=== PATIENT | male | born 1955 | race Caucasian/White ===

== ENCOUNTER 2019-11-20 19:18 | Emergency (ER) | payer SELFPAY ==
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
[2019-11-20 19:32] VITALS: BP 126/97; PULSE 96; RESP 16; RESP 17; TEMP 36.8; O2SAT 96; BMI 23.6
[2019-11-20] MEDS: ondansetron 2 mg/ML SDV 2 mL 4 MG IVP (19:32)
[2019-11-20] MEDS: morphine 4 mg/mL SDV 1 mL IM (19:32)
[2019-11-20 20:38] LABS: Basophils % 0.2 %; Hematocrit 39.6 % (42.0-52.0); Hemoglobin 13.2 g/dL (11.7-16.6); Lymphocytes # 1.6 10^3/uL (0.8-4.8); Lymphocytes % 14.2 %; Mean Corpuscular HGB Conc 33.3 g/dL (30.0-36.0); Mean Corpuscular Hemoglobin 33.9 pg (28.0-34.0); Mean Corpuscular Volume 101.8 fL (80-94); Mean Platelet Volume 10.2 fL (7.4-10.4); Monocytes # 0.6 10^3/uL (0.2-0.9); Monocytes % 5.1 %; Neutrophils # 9.2 10^3/uL (1.8-7.7); Neutrophils % 79.7 %; Nucleated Red Blood Cells % 0 %; Platelet Count 328 10^3/cmm (130-400); Red Blood Count 3.89 10^6/uL (4.1-5.3); Red Cell Distribution Width 12.9 % (12.1-15.1); White Blood Count 11.5 10^3/uL (4.0-10.0)
[2019-11-20 20:55] LABS: Alanine Aminotransferase 35 U/L (0-41); Albumin Level 3.9 g/dL (3.5-5.2); Alkaline Phosphatase 81 IU/L (40-130); Anion Gap 16.9 (5-19); Aspartate Amino Transferase 44 U/L (0-40); Blood Urea Nitrogen 27 mg/dL (8-23); Calcium 9.3 mg/dL (8.5-10.5); Carbon Dioxide 26 mmol/L (22-29); Chloride 103 mmol/L (98-107); Globulin 3.6 g/dL (1.3-4.6); Glomerular Filtration Rate 85.2 mL/min (90-130); Glucose 192 mg/dL (74-106); Lipase 55 U/L (13-60); Potassium 3.9 mmol/L (3.5-5.1); Sodium 142 mmol/L (136-145); Total Bilirubin 0.5 mg/dL (0.15-1.2); Total Protein 7.5 g/dL (6.6-8.7)
[2019-11-20] MEDS: iohexol 300 mg/mL 100 mL Btl IV (21:38)
[2019-11-20 22:26] LABS: Add Urine Microscopic? NO
[2019-11-20 22:36] LABS: Urine Color Dark Yellow (Yellow)
[2019-11-20 22:37] LABS: Bilirubin Urine Neg (NEGATIVE); Blood Urine Neg (Negative); Glucose Urine UA Norm (Normal); Ketones Urine Negative (Negative); Leukocyte Esterase Urine Negative (Negative); Nitrate Urine Negative (Negative); Protein Urine Neg (Negative); Specific Gravity, Urine 1.025 (1.005-1.030); Urine Appearance Clear (CLEAR); Urobilinogen Urine 1 mg/dL (Negative); pH Urine 6 (5-7)
[2019-11-20 22:40] VITALS: BP 164/72; PULSE 81; RESP 16; O2SAT 98
--- NOTE | 2019-11-21 12:20 | DCPLANNER ---
Addendum entered by Alejandra Booth 11/22/19 10:34: manager web application called [phone] and was told that no body by the name of the patient was at the number. manager web application rescheduled the appointment for Saturday, November 30, 2019 at 11:[address] Zimmerman. manager web application mailed patient a letter with appointment information. Original Note: manager web application had message to schedule a follow up appointment for patient with Dr. Zimmerman. manager web application called [facility], spoke with Kendra, a follow up appointment was scheduled for Saturday, November 23, 2019 at 11:[address] Zimmerman. manager web application called patient, , unable to speak with patient, and unable to leave a voicemail, due to no voicemail box set up.
--- NOTE | 2019-12-14 14:45 | DCPLANNER ---
Patient did attend appointment scheduled with [facility].
== END 2019-11-20 22:42 | disposition home or self-care (01) ==
PROVIDERS: Emergency Provider Nurse Practitioner Family
DX: S30.1XXA Contusion of abdominal wall, initial encounter (principal); S36.62XA Contusion of rectum, initial encounter; F17.210 Nicotine dependence, cigarettes, uncomplicated; X50.9XXA Other and unspecified overexertion or strenuous movements or postures, initial encounter
CPT/HCPCS: 74177; 80053; 81003; 83690; 85025; 96372; 99282; 99283; J2270; J2405; Q9967

== ENCOUNTER → 2021-05-27 09:17 | Outpatient (BNVA) | payer MEDICARE, MEDICAID, SELFPAY | PROVIDERS: Family Provider Family Medicine; PCP Family Medicine Adult Medicine; Visit Provider Family Medicine Adult Medicine | DX: J44.9 Chronic obstructive pulmonary disease, unspecified (principal); I10 Essential (primary) hypertension; F17.200 Nicotine dependence, unspecified, uncomplicated; L40.9 Psoriasis, unspecified | CPT/HCPCS: 80053; 80061; 84153; 84443; 85025 ==

== ENCOUNTER 2021-08-19 18:15 | Emergency (ER) | payer MEDICARE, MEDICAID, SELFPAY ==
[2021-08-19 18:24] VITALS: BP 159/91; PULSE 109; RESP 18; TEMP 36.7; O2SAT 93; BMI 25.1
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
[2021-08-19] MEDS: ceFAZolin 1,000 MG in sodium chloride 0.9% (plus) 50 ML 100 MG IV (20:12)
[2021-08-19] MEDS: tetanus-dipt-pertussis 0.5 mL SDV IM (20:13)
[2021-08-19] MEDS: morphine 4 mg/mL SDV 1 mL IVP (20:14)
[2021-08-19 20:17] VITALS: BP 145/90; PULSE 98; RESP 18; O2SAT 94
[2021-08-19 21:18] VITALS: BP 140/91; PULSE 96; RESP 16; O2SAT 94
--- NOTE | 2021-08-21 10:46 | DCPLANNER ---
hydro generation manager had message to schedule a follow up appointment for patient with ENT. hydro generation manager emailed patients information to Anal[facility] and [facility]. Patients information will be printed and reviewed, clinic will call patient with appointment information.
--- NOTE | 2021-08-28 11:14 | DCPLANNER ---
vice president and portfolio manager was notified by general surgery - was told that clinic was unable to speak with patient at this time, that a letter was sent to patient, asking that patient call the clinic to schedule a follow up appointment.
--- NOTE | 2021-09-02 07:35 | DCPLANNER ---
apartment assistant manager was told that clinic called patient to schedule an appointment and was unable to speak with patient at that time to schedule an appointment. apartment assistant manager was told that clinic mailed patient a letter, asking patient to call clinic to schedule an appointment.
== END 2021-08-19 21:22 | disposition home or self-care (01) ==
PROVIDERS: Emergency Provider Emergency Medicine; Family Provider Family Medicine; PCP Family Medicine Adult Medicine
DX: S01.82XA Laceration with foreign body of other part of head, initial encounter (principal); S01.322A Laceration with foreign body of left ear, initial encounter; X99.0XXA Assault by sharp glass, initial encounter; Y92.019 Unspecified place in single-family (private) house as the place of occurrence of the external cause; S51.021A Laceration with foreign body of right elbow, initial encounter; F17.200 Nicotine dependence, unspecified, uncomplicated
CPT/HCPCS: 12014; 17999; 70450; 70486; 70490; 73200; 90471; 90715; 96365; 96375; 99284; J0690; J2270

== ENCOUNTER 2021-10-11 14:28 | Emergency (ER) | payer MEDICARE, MEDICAID, SELFPAY ==
[2021-10-11 14:38] VITALS: BP 146/92; PULSE 105; RESP 16; TEMP 37.2; O2SAT 95; BMI 25.1
--- NOTE | 2021-10-11 15:28 | W.ED.GENADLT ---
HPI - General Adult General: Chief complaint: General Medical Stated complaint: PAINFUL LUMP Time Seen by Provider: 10/11/21 15:25 Source: patient Mode of arrival: ambulatory Limitations: no limitations History of Present Illness: HPI narrative: 65-year-old male states that he has had a lump to his left breast that he noticed a week ago he states that it is firm denies any pain he said no fever no drainage denies having anything like this before denies any worsening improving factors. Associated symptoms: Deny chest pain, dyspnea, headache(s), nausea, rash or vomiting Review of Systems Const: Denies: fever(s), chills, body aches or change in appetite Eyes: Denies: blurry vision or eye discomfort ENMT: Denies: throat pain or dental pain Card: Denies: chest pain Resp: Denies: dyspnea GI: Denies: abdominal pain, nausea, vomiting or diarrhea : Denies: dysuria Musc: Denies: neck pain or back pain Skin/Breast: Denies: rash Neuro: Denies: headache(s) Psych: Denies: depression Edgar/Lymph: Denies: easy bruising All/Imm: Denies: urticaria PFSH ED PFSH: Medical History (Updated 10/11/21 @ 15:30 by Corey Mead MD) COPD (chronic obstructive pulmonary disease) Hypertension Psoriasis Family History Mother Cancer stomach Denies family history of Anesthesia complication Bleeding disorder Social History Smoking and tobacco status: current every day smoker Alcohol intake: current Alcohol intake frequency: few times a week Lives independently: Yes Marital status: Single Current occupational status: retired History of recent travel: No Physical Exam Const: COMMON NORMALS: no acute distress, patient oriented x3 and healthy appearing HENMT: COMMON NORMALS: normocephalic and atraumatic HEAD & SCALP: normocephalic and atraumatic Eye: COMMON NORMALS: Equal, round and reactive pupils present and EOMs intact bilaterally PUPIL: Yes Equal, round and reactive pupils present Neck/C-Spine: COMMON NORMALS: full ROM and supple Chest: COMMONS NORMALS: normal inspection of the chest and normal palpation of entire chest wall OTHER: Does have a marble size lump to the left breast no signs of abscess Resp: COMMON NORMALS: normal respiratory effort, No retractions, No use of accessory muscles and clear to auscultation bilaterally AUSCULTATION: clear to auscultation bilaterally Cardio: COMMON NORMALS: regular rate, regular rhythm and No murmurs present (Cardio) RATE: regular rate RHYTHM: regular rhythm GI: COMMON NORMALS: Normal to inspection, nondistended, normoactive bowel sounds present, Soft to palpation, non-tender and no masses PALPATION: Yes Soft to palpation Extremity: COMMON NORMALS: normal to inspection and full ROM Neuro: COMMON NORMALS: patient oriented x3, moves all extremities and no focal motor deficits Psych: COMMON NORMALS: mental status grossly normal, Normal thought process present and cooperative THOUGHT PROCESS: Normal thought process present Skin: COMMON NORMALS: no rashes or lesions noted and no wounds GENERAL SKIN EXAM: no rashes or lesions noted Course Vital Signs: Vital signs: Vital Signs Temperature 98.9 F 10/11/21 14:38 Pulse Rate 105 H 10/11/21 14:38 Respiratory Rate 16 10/11/21 14:38 Blood Pressure 146/92 10/11/21 14:38 Pulse Oximetry 95 10/11/21 14:38 MDM - General Adult MDM Narrative: Medical decision making narrative: Patient presents with a breast lump no signs of it being an abscess it is firm nonpainful we will get him follow-up with general surgery to work-up the mass. He is to follow-up with surgeon return if worsening Discharge Plan Discharge Patient Disposition: Home Clinical Impression: Breast lump Condition: Stable Prescriptions: No Action lisinopril 5 mg tablet 5 mg PO DAILY Qty: 30 RF: 1 albuterol sulfate [ProAir HFA] 90 mcg/actuation HFA aerosol inhaler 2 puff INHALATION Q6H PRN (Reason: shortness of breath or wheezing) Qty: 18 RF: 2 betamethasone dipropionate 0.05 % cream 1 applic TOPICAL DAILY Qty: 45 RF: 0 Tylenol-Codeine #4 300-60 mg tablet 1 tab PO Q6H PRN (Reason: pain) Qty: 20 RF: 0 Discharge Orders: Discharge ED (Routine); Ordered 10/11/21 Ordered By: Corey Mead Referrals: Karlos Gallardo MD [Primary Care Provider] - Brenton Zimmerman MD [Physician] - 1-3 days Discharge Diet: Advance as tolerated Discharge Activity: Resume usual activity Patient Instructions: Breast Mass (ED) Coding Level of Care Code ED Machine Operator Slitter Technician for [place] Corrales
--- NOTE | 2021-10-11 22:48 | DCPLANNER ---
breakfast manager had message to schedule a follow up appointment for patient with general surgery. breakfast manager emailed patients information to Katie at [facility] General Surgery / ENT clinic. Patients information will be printed and reviewed. Clinic will call patient with appointment information.
--- NOTE | 2021-10-15 14:55 | DCPLANNER ---
Patient has a follow up appointment scheduled for Tuesday November 02, 2021 at 8:[address] Zimmerman. Clinic will call patient with appointment information.
--- NOTE | 2021-11-10 08:26 | DCPLANNER ---
Patient had a follow up appointment scheduled for 11.02.[address] Zimmerman at [facility] General Surgery - patient did attend appointment.
== END 2021-10-11 15:53 | disposition home or self-care (01) ==
PROVIDERS: Emergency Provider Emergency Medicine; PCP Family Medicine Adult Medicine
DX: N63.20 Unspecified lump in the left breast, unspecified quadrant (principal); J44.9 Chronic obstructive pulmonary disease, unspecified; I10 Essential (primary) hypertension; F17.210 Nicotine dependence, cigarettes, uncomplicated
CPT/HCPCS: 99283

== ENCOUNTER 2022-01-06 12:05 | Outpatient (CLI) | payer MEDICARE, MEDICAID, SELFPAY ==
--- NOTE | 2022-01-06 12:17 | MM_ITS ---
WS: [id number] BILATERAL 3D TOMOSYNTHESIS DIGITAL DIAGNOSTIC MAMMOGRAPHY WITH CAD CLINICAL INFORMATION: N63.20 - Unspecified lump in the left breast, unspecified... TECHNIQUE: Bilateral CC, MLO, and ML views. FINDINGS: Scattered fibroglandular densities bilaterally. Palpable marker LEFT breast subareolar region. Dense breast tissue in this area asymmetric compared to the RIGHT. Ultrasound is pending. Comparison RIGHT breast is unremarkable. ULTRASOUND BREAST LEFT TECHNIQUE: Ultrasound LEFT breast focused area of concern. CLINICAL INFORMATION: N63.20 - Unspecified lump in the left breast, unspecified... COMPARISON: None. FINDINGS: Ultrasound LEFT breast at the nipple in the area of concern. RIGHT breast for comparison. Dense shado wing parenchymal tissue in subareolar location LEFT breast. No focal cystic or solid lesions. No lesi ons to target for biopsy. Similar-appearing shadowing dense parenchymal tissue subareolar RIGHT breas t. Findings compatible with gynecomastia. MM/[place] [id number] IMPRESSION: BI-RADS: 2-Benign FOLLOW UP: See Report
== END 2022-01-06 12:06 | disposition home or self-care (01) ==
PROVIDERS: PCP Family Medicine Adult Medicine; Visit Provider Surgery
DX: N63.42 Unspecified lump in left breast, subareolar (principal)
CPT/HCPCS: 76642; 77062

== ENCOUNTER 2022-01-21 12:26 | Emergency (ER) | payer MEDICARE, MEDICAID, SELFPAY ==
[2022-01-21 12:31] VITALS: BP 162/103; PULSE 101; RESP 18; TEMP 36.3; O2SAT 97; BMI 25.1
[2022-01-21 12:49] LABS: Basophils % 0.3 %; Eosinophils % 0.5 %; Hematocrit 44.4 % (42.0-52.0); Lymphocytes % 15.4 %; Mean Corpuscular HGB Conc 33.8 g/dL (30.0-36.0); Mean Corpuscular Hemoglobin 34.2 pg (28.0-34.0); Mean Corpuscular Volume 101.1 fl (80-94); Mean Platelet Volume 10.3 fL (7.4-10.4); Monocytes # 0.7 10^3/uL (0.2-0.9); Monocytes % 10.9 %; Neutrophils % 72.4 %; Nucleated Red Blood Cells % 0 %; Platelet Count 144 10^3/cmm (130-400); Red Blood Count 4.39 10^6/uL (4.1-5.3); Red Cell Distribution Width 12.4 % (12.1-15.1); White Blood Count 6.4 10^3/uL (4.0-10.0)
--- NOTE | 2022-01-21 12:53 | W.ED.ABDPA2 ---
Documented by User: KEIKO Pastrana 01/21/22 15:27 HPI - Abdominal Pain General: Chief Complaint: Abdominal Pain Stated Complaint: ABD Pain Time Seen by Provider: 01/21/22 12:48 Source: patient Mode of arrival: ambulatory Limitations: no limitations History of Present Illness: Patient is a 66-year-old male who presents to ED today with a complaint of diffuse abdominal pains that began yesterday fairly suddenly. He is not complaining of any nausea, vomiting, or changes in bowel movements. He reportedly had a normal bowel movement this morning. He is not complaining of any difficulty with urination, hematuria, dysuria. He has no flank pains. States abdominal pain does not seem to radiate into his chest or back. It does not seem to be affected by eating and states he has been able to eat and drink normally. Patient has not had any fevers or chills. He denies any previous abdominal surgeries. MD elicited complaint: abdominal pain Pertinent past history: none Onset (ago): hour(s) Pain Consistency: constant Location: Diffuse Severity: severe Radiation: none Migration to: no migration Exacerbating factors: nothing Relieving factors: nothing Associated Symptoms: Denies change in bowel habits, change in stool character, chills, diarrhea, dysuria, fever(s), heartburn, hematuria, hematemesis, nausea, syncope and vomiting Review of Systems Const: Denies: fever(s), chills, body aches, fatigue or malaise Eyes: Denies: change in vision or blurry vision Card: Denies: chest pain, palpitations, irregular heart rhythm, lightheadedness, syncope or dyspnea on exertion Resp: Denies: dyspnea, productive cough or pain on inspiration GI: Reports: abdominal pain; Denies: nausea, vomiting, hematemesis, heartburn, diarrhea, change in bowel habits or change in stool character : Denies: flank pain, difficulty urinating, dysuria, hematuria, testicular pain, testicular mass or scrotal swelling Musc: Denies: neck pain, back pain or joint pain Skin/Breast: Denies: rash Neuro: Denies: headache(s) or dizziness PFS ED PFSH: Medical History COPD (chronic obstructive pulmonary disease) COPD (chronic obstructive pulmonary disease) Hypertension Psoriasis Family History Mother Cancer stomach Denies family history of Anesthesia complication Bleeding disorder Social History Alcohol intake: current Alcohol intake frequency: few times a week Lives independently: Yes Marital status: Single Number of children: 3 Number of grandchildren: 3 service: No Current occupational status: retired and disabled History of recent travel: No Physical Exam Const: COMMON NORMALS: patient oriented x3, no limitations and alert GENERAL APPEARANCE: cooperative ORIENTATION/CONSCIOUSNESS: Yes awake, Yes oriented to person, Yes oriented to place and Yes oriented to time OTHER: states he is tired because he didn't sleep much last night secondary to pain HENMT: COMMON NORMALS: normocephalic and atraumatic HEAD & SCALP: normocephalic and atraumatic FACE & SINUS: normal facial exam Chest: COMMONS NORMALS: normal inspection of the chest and normal palpation of entire chest wall Resp: COMMON NORMALS: normal respiratory effort and clear to auscultation bilaterally AUSCULTATION: clear to auscultation bilaterally Cardio: COMMON NORMALS: regular rate and regular rhythm RATE: regular rate RHYTHM: regular rhythm GI: COMMON NORMALS: Soft to palpation INSPECTION: Yes normal to inspection AUSCULTATION: Yes normoactive bowel sounds PALPATION: Yes Soft to palpation and Yes Tenderness to palpation present (GI) (diffuse tenderness w/o obvious guarding or rigidity ) : COMMON NORMALS: Yes no CVA tenderness BLADDER/KIDNEY EXAM: Yes no CVA tenderness Back/Pelvis: COMMON NORMALS: no CVA tenderness, thoracic and lumbar spine normal to inspection, no thoracic nor lumbar tenderness and thoraco-lumbar ROM normal Extremity: COMMON NORMALS: normal to inspection GENERAL: Yes normal exam except as noted Neuro: ANITA COMA SCALE: document GCS findings Anita coma scale eye opening: Spontaneous Hagerman coma scale verbal response: Orientated Anita coma scale motor response: Obey commands Anita coma scale total score: 15 COMMON NORMALS: patient oriented x3, moves all extremities, no focal motor deficits and no sensory deficits noted SENSORIUM/ORIENTATION: Yes alert, Yes oriented to person, Yes oriented to place and Yes oriented to time Skin: COMMON NORMALS: no rashes or lesions noted GENERAL SKIN EXAM: no rashes or lesions noted Course Vital Signs: Vital signs: Vital Signs Temperature 97.6 F 01/21/22 14:04 Pulse Rate 93 01/21/22 14:04 Respiratory Rate 16 01/21/22 14:25 Blood Pressure 192/102 01/21/22 14:04 Pulse Oximetry 96 01/21/22 14:04 MDM - Abdominal Pain Medical Decision Making Patient is a 66-year-old male here for abdominal pains beginning yesterday. He is not having any nausea or vomiting. He is passing flatulence. He had a normal bowel movement this morning. Patient's blood work shows a normal white count. Chemistry panel shows mildly elevated LFTs. He has had elevations to these previously. He has a normal lipase. Gallbladder US shows hepatomegaly with hepatic steatosis. CT scan shows likely mild enteritis but findings could represent an early small bowel obstruction. Again patient is not having any vomiting and is passing stool and flatulence normally. We will recommend at this time patient do a strict liquid diet over the next 48 hours and slowly advance as tolerated. Recommend he follow-up with PCP early next week for reevaluation. Strict return to ED precautions given regarding tomorrow and over the weekend. Lab Data : 01/21/22 12:44 01/21/22 12:44 Labs/Radiology: Radiology Impressions Abdomen/Pelvis CT 01/21/22 12:57 IMPRESSION: 1. Mild fluid distention and hyperemic small bowel loops in the RIGHT lower quadrant with a small amount of mesenteric fluid. At this time there is no high-grade obstruction but there is an acute inflammatory process which is likely a mild enteritis. This also may represent early small bowel obstruction. 2. Normal appendix. 3. Cirrhotic liver. Gallbladder Ultrasound 01/21/22 13:25 IMPRESSION: 1. Mildly enlarged liver with diffuse hepatic steatosis. 2. Negative gallbladder. Laboratory Results WBC 6.4 10^3/uL (4.0-10.0) 01/21/22 12:44 RBC 4.39 10^6/uL (4.1-5.3) 01/21/22 12:44 Hgb 15.0 g/dL (11.7-16.6) 01/21/22 12:44 Hct 44.4 % (42.0-52.0) 01/21/22 12:44 MCV 101.1 fl (80-94) H 01/21/22 12:44 MCH 34.2 pg (28.0-34.0) H 01/21/22 12:44 MCHC 33.8 g/dL (30.0-36.0) 01/21/22 12:44 RDW 12.4 % (12.1-15.1) 01/21/22 12:44 Plt Count 144 10^3/cmm (130-400) 01/21/22 12:44 MPV 10.3 fL (7.4-10.4) 01/21/22 12:44 Neut % (Auto) 72.4 % 01/21/22 12:44 Lymph % (Auto) 15.4 % 01/21/22 12:44 Sunflower % (Auto) 10.9 % 01/21/22 12:44 Eos % (Auto) 0.5 % 01/21/22 12:44 Baso % (Auto) 0.3 % 01/21/22 12:44 Neut # (Auto) 4.60 10^3/uL (1.8-7.7) 01/21/22 12:44 Lymph # (Auto) 1.0 10^3/uL (0.8-4.8) 01/21/22 12:44 Sunflower # (Auto) 0.7 10^3/uL (0.2-0.9) 01/21/22 12:44 Eos # (Auto) 0.0 10^3/uL (0.0-0.8) 01/21/22 12:44 Baso # (Auto) 0.0 10^3/uL (0.0-0.1) 01/21/22 12:44 Nucleated RBC % (auto) 0 % 01/21/22 12:44 Nucleated RBCs # 0.0 /100WBC 01/21/22 12:44 Sodium 135 mmol/L (136-145) L 01/21/22 12:44 Potassium 3.6 mmol/L (3.5-5.1) 01/21/22 12:44 Chloride 99 mmol/L (98-107) 01/21/22 12:44 Carbon Dioxide 26 mmol/L (22-29) 01/21/22 12:44 Anion Gap 13.6 (5-19) 01/21/22 12:44 BUN 12 mg/dL (8-23) 01/21/22 12:44 Creatinine 0.6 mg/dL (0.7-1.2) L 01/21/22 12:44 GFR Calculation 134.8 mL/min (90-130) H 01/21/22 12:44 Glucose 165 mg/dL (65-115) H 01/21/22 12:44 Calculated Osmolality 283 mOsm/kg (285-295) L 01/21/22 12:44 Calcium 8.9 mg/dL (8.5-10.5) 01/21/22 12:44 Total Bilirubin 1.9 mg/dL (0.15-1.2) H 01/21/22 12:44 AST 94 U/L (0-40) H 01/21/22 12:44 ALT 64 U/L (0-41) H 01/21/22 12:44 Alkaline Phosphatase 95 IU/L (40-130) 01/21/22 12:44 Total Protein 7.1 g/dL (6.6-8.7) 01/21/22 12:44 Albumin 3.7 g/dL (3.5-5.2) 01/21/22 12:44 Globulin 3.4 g/dL (1.3-4.6) 01/21/22 12:44 Lipase 34 U/L (13-60) 01/21/22 12:44 Urine Color Yellow (Yellow) 01/21/22 13:04 Urine Appearance Clear (CLEAR) 01/21/22 13:04 Urine pH 7 (5-7) 01/21/22 13:04 Ur Specific [place] 1.010 (1.005-1.030) 01/21/22 13:04 Urine Protein Neg (Negative) 01/21/22 13:04 Urine Glucose (UA) Norm (Normal) 01/21/22 13:04 Urine Ketones Negative (Negative) 01/21/22 13:04 Urine Blood 2+ (Negative) H 01/21/22 13:04 Urine Nitrate Negative (Negative) 01/21/22 13:04 Urine Bilirubin Neg (Negative) 01/21/22 13:04 Urine Urobilinogen 4 mg/dL (Negative) H 01/21/22 13:04 Ur Leukocyte Esterase Negative (Negative) 01/21/22 13:04 Urine RBC 5-10 /hpf (0-2) H 01/21/22 13:04 Urine WBC Rare /hpf (0-5) 01/21/22 13:04 Ur Squamous Epith Cells Rare /hpf (0-5) 01/21/22 13:04 Amorphous Sediment Not Reportable 01/21/22 13:04 Urine Bacteria Trace /hpf (NONE) 01/21/22 13:04 Urine Mucus 2+ /hpf 01/21/22 13:04 Discharge Plan Discharge Patient Disposition: Home Clinical Impression: Abdominal pain, Enteritis Condition: Stable Prescriptions: No Action lisinopril 5 mg tablet 5 mg PO DAILY Qty: 30 1RF albuterol sulfate [ProAir HFA] 90 mcg/actuation HFA aerosol inhaler 2 puff INHALATION Q6H PRN (Reason: shortness of breath or wheezing) Qty: 18 2RF albuterol sulfate 2.5 mg/0.5 mL solution for nebulization 2.5 mg inhalation Q20M 0RF Rx Instructions: for up to 3 doses albuterol sulfate 90 mcg/actuation HFA aerosol inhaler 2 puff inhalation Q4H PRN (Reason: shortness of breath or wheezing) Qty: 8.5 5RF Rx Instructions: 340 B medications lisinopril 20 mg tablet 20 mg PO DAILY Qty: 30 5RF Rx Instructions: 340 B medications Discharge Orders: Discharge ED (Routine); Ordered 01/21/22 Ordered By: Jenniffer Singh Referrals: Karlos Gallardo MD [Primary Care Provider] - Patient Instructions: Abdominal Pain (ED) Activity Restrictions/Additional Instructions: As we discussed the imaging of your abdomen today shows some inflammation in your small bowel. The radiologist could not rule out a very early small bowel obstruction. At this point you are not vomiting and are passing gas and stool normally therefore we will have you do a strict liquid diet over the next 48 hours and then slowly advance to soft foods and advance from there as tolerated. As we discussed you need to return to the emergency department immediately for worsening abdominal pain, repetitive episodes of vomiting, inability to pass gas or stool, fevers, or any other concerns you may have. Coding Level of Care Code ED Upkeep Mechanic for [place] Fwd Exam Comprehensive Documented by User: Lan Haywood DO 01/22/22 11:18 HPI - Abdominal Pain General: Chief Complaint: Abdominal Pain Stated Complaint: ABD Pain Time Seen by Provider: 01/21/22 12:48 [facility] ED PFSH: Medical History COPD (chronic obstructive pulmonary disease) COPD (chronic obstructive pulmonary disease) Hypertension Psoriasis Family History Mother Cancer stomach Denies family history of Anesthesia complication Bleeding disorder Social History Alcohol intake: current Alcohol intake frequency: few times a week Lives independently: Yes Marital status: Single Number of children: 3 Number of grandchildren: 3 service: No Current occupational status: retired and disabled History of recent travel: No Physical Exam Neuro: ANITA COMA SCALE: document GCS findings Anita coma scale total score: 15 Course Vital Signs: Vital signs: Vital Signs Temperature 97.6 F 01/21/22 14:04 Pulse Rate 93 01/21/22 14:04 Respiratory Rate 16 01/21/22 14:25 Blood Pressure 192/102 01/21/22 14:04 Pulse Oximetry 96 01/21/22 14:04 MDM - Abdominal Pain Medical Decision Making Patient is a 66-year-old male here for abdominal pains beginning yesterday. He is not having any nausea or vomiting. He is passing flatulence. He had a normal bowel movement this morning. Patient's blood work shows a normal white count. Chemistry panel shows mildly elevated LFTs. He has had elevations to these previously. He has a normal lipase. Gallbladder US shows hepatomegaly with hepatic steatosis. CT scan shows likely mild enteritis but findings could represent an early small bowel obstruction. Again patient is not having any vomiting and is passing stool and flatulence normally. We will recommend at this time patient do a strict liquid diet over the next 48 hours and slowly advance as tolerated. Recommend he follow-up with PCP early next week for reevaluation. Strict return to ED precautions given regarding tomorrow and over the weekend. Chart reviewed and patient discussed with midlevel. Agree with assessment and plan. Lab Data : 01/21/22 12:44 01/21/22 12:44 Labs/Radiology: Radiology Impressions Abdomen/Pelvis CT 01/21/22 12:57 IMPRESSION: 1. Mild fluid distention and hyperemic small bowel loops in the RIGHT lower quadrant with a small amount of mesenteric fluid. At this time there is no high-grade obstruction but there is an acute inflammatory process which is likely a mild enteritis. This also may represent early small bowel obstruction. 2. Normal appendix. 3. Cirrhotic liver. Gallbladder Ultrasound 01/21/22 13:25 IMPRESSION: 1. Mildly enlarged liver with diffuse hepatic steatosis. 2. Negative gallbladder. Laboratory Results WBC 6.4 10^3/uL (4.0-10.0) 01/21/22 12:44 RBC 4.39 10^6/uL (4.1-5.3) 01/21/22 12:44 Hgb 15.0 g/dL (11.7-16.6) 01/21/22 12:44 Hct 44.4 % (42.0-52.0) 01/21/22 12:44 MCV 101.1 fl (80-94) H 01/21/22 12:44 MCH 34.2 pg (28.0-34.0) H 01/21/22 12:44 MCHC 33.8 g/dL (30.0-36.0) 01/21/22 12:44 RDW 12.4 % (12.1-15.1) 01/21/22 12:44 Plt Count 144 10^3/cmm (130-400) 01/21/22 12:44 MPV 10.3 fL (7.4-10.4) 01/21/22 12:44 Neut % (Auto) 72.4 % 01/21/22 12:44 Lymph % (Auto) 15.4 % 01/21/22 12:44 Sunflower % (Auto) 10.9 % 01/21/22 12:44 Eos % (Auto) 0.5 % 01/21/22 12:44 Baso % (Auto) 0.3 % 01/21/22 12:44 Neut # (Auto) 4.60 10^3/uL (1.8-7.7) 01/21/22 12:44 Lymph # (Auto) 1.0 10^3/uL (0.8-4.8) 01/21/22 12:44 Sunflower # (Auto) 0.7 10^3/uL (0.2-0.9) 01/21/22 12:44 Eos # (Auto) 0.0 10^3/uL (0.0-0.8) 01/21/22 12:44 Baso # (Auto) 0.0 10^3/uL (0.0-0.1) 01/21/22 12:44 Nucleated RBC % (auto) 0 % 01/21/22 12:44 Nucleated RBCs # 0.0 /100WBC 01/21/22 12:44 Sodium 135 mmol/L (136-145) L 01/21/22 12:44 Potassium 3.6 mmol/L (3.5-5.1) 01/21/22 12:44 Chloride 99 mmol/L (98-107) 01/21/22 12:44 Carbon Dioxide 26 mmol/L (22-29) 01/21/22 12:44 Anion Gap 13.6 (5-19) 01/21/22 12:44 BUN 12 mg/dL (8-23) 01/21/22 12:44 Creatinine 0.6 mg/dL (0.7-1.2) L 01/21/22 12:44 GFR Calculation 134.8 mL/min (90-130) H 01/21/22 12:44 Glucose 165 mg/dL (65-115) H 01/21/22 12:44 Calculated Osmolality 283 mOsm/kg (285-295) L 01/21/22 12:44 Calcium 8.9 mg/dL (8.5-10.5) 01/21/22 12:44 Total Bilirubin 1.9 mg/dL (0.15-1.2) H 01/21/22 12:44 AST 94 U/L (0-40) H 01/21/22 12:44 ALT 64 U/L (0-41) H 01/21/22 12:44 Alkaline Phosphatase 95 IU/L (40-130) 01/21/22 12:44 Total Protein 7.1 g/dL (6.6-8.7) 01/21/22 12:44 Albumin 3.7 g/dL (3.5-5.2) 01/21/22 12:44 Globulin 3.4 g/dL (1.3-4.6) 01/21/22 12:44 Lipase 34 U/L (13-60) 01/21/22 12:44 Urine Color Yellow (Yellow) 01/21/22 13:04 Urine Appearance Clear (CLEAR) 01/21/22 13:04 Urine pH 7 (5-7) 01/21/22 13:04 Ur Specific [place] 1.010 (1.005-1.030) 01/21/22 13:04 Urine Protein Neg (Negative) 01/21/22 13:04 Urine Glucose (UA) Norm (Normal) 01/21/22 13:04 Urine Ketones Negative (Negative) 01/21/22 13:04 Urine Blood 2+ (Negative) H 01/21/22 13:04 Urine Nitrate Negative (Negative) 01/21/22 13:04 Urine Bilirubin Neg (Negative) 01/21/22 13:04 Urine Urobilinogen 4 mg/dL (Negative) H 01/21/22 13:04 Ur Leukocyte Esterase Negative (Negative) 01/21/22 13:04 Urine RBC 5-10 /hpf (0-2) H 01/21/22 13:04 Urine WBC Rare /hpf (0-5) 01/21/22 13:04 Ur Squamous Epith Cells Rare /hpf (0-5) 01/21/22 13:04 Amorphous Sediment Not Reportable 01/21/22 13:04 Urine Bacteria Trace /hpf (NONE) 01/21/22 13:04 Urine Mucus 2+ /hpf 01/21/22 13:04 Discharge Plan Discharge Patient Disposition: Home Clinical Impression: Abdominal pain, Enteritis Condition: Stable Prescriptions: No Action lisinopril 5 mg tablet 5 mg PO DAILY Qty: 30 1RF albuterol sulfate [ProAir HFA] 90 mcg/actuation HFA aerosol inhaler 2 puff INHALATION Q6H PRN (Reason: shortness of breath or wheezing) Qty: 18 2RF albuterol sulfate 2.5 mg/0.5 mL solution for nebulization 2.5 mg inhalation Q20M 0RF Rx Instructions: for up to 3 doses albuterol sulfate 90 mcg/actuation HFA aerosol inhaler 2 puff inhalation Q4H PRN (Reason: shortness of breath or wheezing) Qty: 8.5 5RF Rx Instructions: 340 B medications lisinopril 20 mg tablet 20 mg PO DAILY Qty: 30 5RF Rx Instructions: 340 B medications Discharge Orders: Discharge ED (Routine); Ordered 01/21/22 Ordered By: Jenniffer Singh Referrals: Karlos Gallardo MD [Primary Care Provider] - Patient Instructions: Abdominal Pain (ED) Activity Restrictions/Additional Instructions: As we discussed the imaging of your abdomen today shows some inflammation in your small bowel. The radiologist could not rule out a very early small bowel obstruction. At this point you are not vomiting and are passing gas and stool normally therefore we will have you do a strict liquid diet over the next 48 hours and then slowly advance to soft foods and advance from there as tolerated. As we discussed you need to return to the emergency department immediately for worsening abdominal pain, repetitive episodes of vomiting, inability to pass gas or stool, fevers, or any other concerns you may have. Coding Level of Care Code ED Upkeep Mechanic for [place] Fwd Exam Comprehensive
--- NOTE | 2022-01-21 12:57 | CT_ITS ---
WS: [id number] CT ABDOMEN AND PELVIS WITH CONTRAST HISTORY: diffuse abdominal pain TECHNIQUE: Imaging performed of the abdomen and pelvis with IV contrast. Single phase imaging of the abdomen. Coronal and sagittal reformats are submitted. All CT scans at [facility] use at [address] one of these dose optimization techniques: automated exposure control; mA and/or kV adjustment per patient size (includes targeted exams where dose is matched to clinical indication); or iterative re construction. IV CONTRAST: Omnipaque 300; 95 mL IV. Oral contrast: No DLP: 1353.5 mGy.cm COMPARISON: None available. Lower thorax: Benign granuloma LEFT lower lobe. Heart is normal size. No hiatal hernia. Liver/biliary system: Normal size liver. Surface of the liver is irregular and lobulated. No mass genet ntified. There is a long-term stability hypoechoic 5 mm nodule superior liver. Gallbladder: Normal. No gallstones or wall thickening. No pericholecystic fluid. Pancreas: Normal size pancreas and pancreatic duct. No adjacent inflammation. Spleen: 14.4 cm, mildly enlarged spleen with a few granulomata. Adrenal glands: Normal. Right kidney: Normal. Left kidney: Normal. Aorta: Atherosclerosis. No aneurysm. Lymphadenopathy: There are small scattered mesenteric lymph nodes. These lymph nodes are not enlarged . Free fluid: None. GI tract: Nondistended stomach. Proximal small bowel was normal caliber. There are mildly dilated hyp eremic loops of small bowel in the RIGHT lower quadrant. There is also some very mild enhancement of the vasa recta. At this time there is no obstruction. No transition point is identified. There is a s mall amount of fluid and edema in the mesentery of the RIGHT lower quadrant. The appendix is normal. Mild diffuse constipation. There are a few scattered diverticula in the sigmoid colon. Abdominal wall: Unremarkable abdominal wall. No hernia. Pelvis: Prostate gland is enlarged encroaching into the bladder. Prostate measures 4.0 x 3.1 cm and e xtends over length of 5.7 cm. No free fluid or adenopathy in the pelvis. Bones: No osteoblastic or osteolytic bone disease. Bilateral pars defects at L5. CT/CT abdomen pelvis w con* [id number] IMPRESSION: 1. Mild fluid distention and hyperemic small bowel loops in the RIGHT lower qu adrant with a small amount of mesenteric fluid. At this time there is no high-g rade obstruction but there is an acute inflammatory process which is likely a m ild enteritis. This also may represent early small bowel obstruction. 2. Normal appendix. 3. Cirrhotic liver.
[2022-01-21 13:10] LABS: Alanine Aminotransferase 64 U/L (0-41); Albumin Level 3.7 g/dL (3.5-5.2); Alkaline Phosphatase 95 IU/L (40-130); Anion Gap 13.6 (5-19); Aspartate Amino Transferase 94 U/L (0-40); Blood Urea Nitrogen 12 mg/dL (8-23); Calcium 8.9 mg/dL (8.5-10.5); Carbon Dioxide 26 mmol/L (22-29); Chloride 99 mmol/L (98-107); Creatinine Clr Calc Pharmacy 94.1244; Globulin 3.4 g/dL (1.3-4.6); Glomerular Filtration Rate 134.8 mL/min (90-130); Glucose 165 mg/dL (65-115); Lipase 34 U/L (13-60); Osmolality Calculated 283 mOsm/kg (285-295); Potassium 3.6 mmol/L (3.5-5.1); Sodium 135 mmol/L (136-145); Total Bilirubin 1.9 mg/dL (0.15-1.2); Total Protein 7.1 g/dL (6.6-8.7)
[2022-01-21 13:23] LABS: Blood Urine 2+ (Negative); Glucose Urine UA Norm (Normal); Ketones Urine Negative (Negative); Protein Urine Neg (Negative); Urine Appearance Clear (CLEAR); Urine Color Yellow (Yellow); pH Urine 7 (5-7)
[2022-01-21 13:24] LABS: Add Urine Culture? No; Add Urine Microscopic? YES; Bacteria Urine TRACE /hpf; Bilirubin Urine Neg (Negative); Leukocyte Esterase Urine Negative (Negative); Mucus Urine 2+ /hpf; Nitrate Urine Negative (Negative); Squamous Epithelial Cell Urine RARE /hpf (0-5); Urobilinogen Urine 4 mg/dL (Negative); WBC Urine RARE /hpf (0-5)
--- NOTE | 2022-01-21 13:25 | US_ITS ---
WS: [id number] RIGHT UPPER QUADRANT ULTRASOUND HISTORY: elevated LFTs, abdominal pain COMPARISON: 02/26/2013 Liver: 16.9 cm in length. Mildly enlarged liver with diffuse mild coarse echotexture. No mass or bile duct dilatation. Portal Vein: Normal hepatopetal flow with monophasic waveform. Gallbladder: Normally distended gallbladder with no stones or wall thickening. CBD: 0.6 cm Pancreas: Not well visualized. Right kidney: 9.1 cm in length. Normal size and echogenicity. No hydronephrosis or mass. Aorta and IVC: Unremarkable abdominal aorta and IVC. No ascites. US/US gall bladder [id number] IMPRESSION: 1. Mildly enlarged liver with diffuse hepatic steatosis. 2. Negative gallbladder.
[2022-01-21 14:04] VITALS: BP 192/102; PULSE 93; RESP 16; TEMP 36.4; O2SAT 96
[2022-01-21] MEDS: iohexol 300 mg/mL 100 mL Btl IV (14:16)
[2022-01-21 14:25] VITALS: RESP 16
[2022-01-21] MEDS: ondansetron 2 mg/ML SDV 2 mL 4 MG IVP (14:25)
[2022-01-21] MEDS: morphine 4 mg/mL SDV 1 mL IVP (14:25)
[2022-01-21] MEDS: ketorolac 30 mg/mL INJ IVP (15:40)
== END 2022-01-21 15:43 | disposition home or self-care (01) ==
PROVIDERS: Emergency Provider Physician Assistant; PCP Family Medicine Adult Medicine
DX: K52.9 Noninfective gastroenteritis and colitis, unspecified (principal); R79.89 Other specified abnormal findings of blood chemistry; J44.9 Chronic obstructive pulmonary disease, unspecified; I10 Essential (primary) hypertension
CPT/HCPCS: 74177; 76705; 80053; 81001; 83690; 85025; 96374; 96375; 99283; J1885; J2270; J2405; Q9967

== ENCOUNTER 2022-05-14 06:02 | Emergency (ER) | payer MEDICARE, MEDICAID, SELFPAY ==
[2022-05-14 06:03] VITALS: BP 192/108; PULSE 84; RESP 22; TEMP 36.6; O2SAT 98; BMI 25.1
--- NOTE | 2022-05-14 06:26 | ECG_ITS ---
[facility] Test Date: 2022-05-14 Pat Name: Ned Sherwood Department: Room: Gender: Male Clay Digger: : 1955 Requested By: Lan Guerrero Order Number: [id number] [place] MD: Emil Lora M.D. Measurements Intervals Hood Rate: 86 P: 75 OK: 184 QRS: 53 QRSD: 92 T: 62 QT: 395 QTc: 474 Interpretive Statements SINUS RHYTHM WITH OCCASIONAL SUPRAVENTRICULAR PREMATURE COMPLEXES POSSIBLE LEFT ATRIAL ENLARGEMENT [-0.1mV P-WAVE IN V1/V2] Compared to ECG 05/13/2017 19:08:49 No significant changes Electronically Signed On 05-14-2022 20:30:21 CDT by Emil Lora M.D. [id number]
--- NOTE | 2022-05-14 06:26 | CTR_ITS ---
PROCEDURE INFORMATION: Exam: CT Abdomen And Pelvis Without Contrast Exam date and time: 05/14/2022 6:35 AM Age: 66 years old Clinical indication: Abdominal pain; Generalized TECHNIQUE: Imaging protocol: Computed tomography of the abdomen and pelvis without contrast. Radiation optimization: All CT scans at this facility use at least one of these dose optimization techniques: automated exposure control; mA and/or kV adjustment per patient size (includes targeted exams where dose is matched to clinical indication); or iterative reconstruction. COMPARISON: CT abdomen pelvis w con* [id number] 01/21/2022 2:16 PM RADIATION DOSE METRICS: Total DLP (mGy-cm): 948.23 FINDINGS: Lungs: No consolidation. Tiny calcified granuloma noted in the left lower lobe. Heart: Normal heart size. Coronary atherosclerotic calcifications seen. No pericardial effusion. Liver: The liver demonstrates volume redistribution and nodular contour, consistent with cirrhosis. There is a nonspecific subcentimeter focus of decreased attenuation in the hepatic dome. Gallbladder and bile ducts: Normal. No calcified stones. No ductal dilation. Pancreas: Normal. No ductal dilation. Spleen: There is tiny calcific densities scattered throughout the spleen, likely sequela of previous granulomatous disease. Mildly enlarged spleen measuring 14.3 cm in CC dimension. Adrenal glands: Normal. No mass. Kidneys and ureters: Normal. No hydronephrosis. Stomach and bowel: There is diverticulosis without evidence of diverticulitis. Appendix: No evidence of appendicitis. Intraperitoneal space: Unremarkable. No free air. No significant fluid collection. Vasculature: Mild diffuse atherosclerotic disease is present. Lymph nodes: Unremarkable. No enlarged lymph nodes. Urinary bladder: Unremarkable as visualized. Reproductive: The prostate is enlarged. Bones/joints: Degenerative changes of the spine seen. Soft tissues: A small fat containing umbilical hernia is present. CT/CT abdomen pelvis wo con [id number] IMPRESSION: 1. No acute intra-abdominal or intrapelvic pathology. 2. Cirrhotic liver with stigmata of portal hypertension, manifested by splenomegaly
--- NOTE | 2022-05-14 06:28 | ED_ITS ---
HPI - Abdominal Pain General: Chief Complaint: Abdominal Pain Stated Complaint: abd pain Time Seen by Provider: 05/14/22 06:14 Source: patient Mode of arrival: ambulatory Limitations: no limitations History of Present Illness: 66-year-old male presents emergency complaining of generalized abdominal pain mostly epigastric right upper quadrant but does not really focus it beyond that. He denies hematochezia melena hematemesis coffee- ground emesis. He states he gets his intermittently is a little worse today than it has been in the past. Later in the visit patient admits to drinking at least a pint of hard liquor per day. MD elicited complaint: abdominal pain Pertinent past history: none Onset (ago): hour(s) Pain Consistency: constant Location: Epigastric and RUQ Severity: moderate Quality: cramping Radiation: none Migration to: no migration Exacerbating factors: nothing Relieving factors: nothing Associated Symptoms: Reports GI cramping, dyspepsia, nausea and poor appetite; Denies anorexia, belching, bloating, change in bowel habits, change in stool ch aracter, chills, coffee ground emesis, constipation, diarrhea, dysuria, excessive flatus, fever(s), heartburn, hematochezia, hematuria, hematemesis, fecal incontinence, loose stools, melena, syncope and vomiting Review of Systems Const: Denies: fever(s), chills, fatigue or malaise ENMT: Denies: throat pain, ear or mastoid pain, nasal discharge or nasal congestion Card: Denies: chest pain, palpitations, irregular heart rhythm or syncope Resp: Denies: dyspnea, productive cough or non-productive cough GI: Reports: abdominal pain, nausea and GI cramping; Denies: vomiting, hematemesis, coffee ground emesis, heartburn, diarrhea, constipation, bloating, belching, excessive flatus, fecal incontinence, change in bowel habits, change in stool character, hematochezia or melena : Denies: flank pain, difficulty urinating, dysuria, urinary frequency, urinary urgency or hematuria Skin/Breast: Denies: rash or pruritus PFS ED PFSH: Medical History COPD (chronic obstructive pulmonary disease) COPD (chronic obstructive pulmonary disease) Hypertension Psoriasis Family History Mother Cancer stomach Denies family history of Anesthesia complication Bleeding disorder Social History Alcohol intake: current Alcohol intake frequency: few times a week Lives independently: Yes Marital status: Single Number of children: 3 Number of grandchildren: 3 service: No Current occupational status: retired and disabled History of recent travel: No Physical Exam Const: COMMON NORMALS: no acute distress GENERAL APPEARANCE: cooperative and comfortable ORIENTATION/CONSCIOUSNESS: Yes awake, Yes oriented to person, Yes oriented to place and Yes oriented to time HENMT: COMMON NORMALS: normocephalic and atraumatic HEAD & SCALP: normocephalic and atraumatic Neck/C-Spine: COMMON NORMALS: no JVD Resp: COMMON NORMALS: normal respiratory effort, No retractions, No use of accessory muscles and clear to auscultation bilaterally AUSCULTATION: clear to auscultation bilaterally Cardio: COMMON NORMALS: no JVD, regular rate, regular rhythm and No murmurs present (Cardio) RATE: regular rate RHYTHM: regular rhythm GI: COMMON NORMALS: No hepatosplenomegaly present AUSCULTATION: Yes normoactive bowel sounds PALPATION: Yes Tenderness to palpation present (GI) (diffuse), No Guarding due to palpation present (GI) and Yes No hepatosplenomegaly present Extremity: COMMON NORMALS: normal to inspection, capillary refill normal, no clubbing, cyanosis or edema, no calf tenderness and no pedal edema Neuro: SENSORIUM/ORIENTATION: Yes oriented to person, Yes oriented to place and Yes oriented to time Skin: COMMON NORMALS: no rashes or lesions noted GENERAL SKIN EXAM: no rashes or lesions noted Course Vital Signs: Vital signs: Vital Signs Temperature 97.9 F 05/14/22 06:03 Pulse Rate 93 05/14/22 08:53 Respiratory Rate 18 05/14/22 08:53 Blood Pressure 136/81 05/14/22 08:53 Pulse Oximetry 97 05/14/22 08:53 MDM - Abdominal Pain Medical Decision Making Liver enzymes and bilirubin elevated CT and ultrasound show signs of cirrhosis but there is no signs of any active gallbladder disease. His pancreatic enzymes are normal. They most of his symptoms are from alcoholic gastritis rest of his labs are unremarkable for any acute pathology do reflect his chronic drinking with a mildly elevated MCV elevated liver enzymes and mild hyponatremia. Additionally was hypertensive. Not taking his blood pressure medication. He is given several medications here to alleviate his blood pressure and we will discharge him home with amlodipine 5 mg daily in addition to his lisinopril. In addition to that we will start him on Protonix 40 twice a day and he should follow-up with his primary care doctor to reevaluate blood pressure and the need for continued Protonix at the end of 2 weeks. Patient encouraged to seek outpatient assistance for abstinence from alcohol. Medical Records I reviewed the patient's medical records. Lab Data I reviewed the patient's lab results. : 05/14/22 06:50 05/14/22 06:50 Labs/Radiology: Radiology Impressions Abdomen/Pelvis CT 05/14/22 06:26 IMPRESSION: 1. No acute intra-abdominal or intrapelvic pathology. 2. Cirrhotic liver with stigmata of portal hypertension, manifested by splenomegaly Gallbladder Ultrasound 05/14/22 07:39 IMPRESSION: 1. No cholelithiasis or gallbladder wall thickening. Normal size gallbladder. 2. Cirrhotic liver. 3. No bile duct dilatation. Laboratory Results WBC 6.6 10^3/uL (4.0-10.0) 05/14/22 06:50 RBC 4.81 10^6/uL (4.1-5.3) 05/14/22 06:50 Hgb 16.3 g/dL (11.7-16.6) 05/14/22 06:50 Hct 47.3 % (42.0-52.0) 05/14/22 06:50 MCV 98.3 fl (80-94) H 05/14/22 06:50 MCH 33.9 pg (28.0-34.0) 05/14/22 06:50 MCHC 34.5 g/dL (30.0-36.0) 05/14/22 06:50 RDW 12.9 % (12.1-15.1) 05/14/22 06:50 Plt Count 154 10^3/cmm (130-400) 05/14/22 06:50 MPV 10.2 fL (7.4-10.4) 05/14/22 06:50 Neut % (Auto) 66.8 % 05/14/22 06:50 Lymph % (Auto) 21.6 % 05/14/22 06:50 [place] % (Auto) 10.2 % 05/14/22 06:50 Eos % (Auto) 0.9 % 05/14/22 06:50 Baso % (Auto) 0.3 % 05/14/22 06:50 Neut # (Auto) 4.40 10^3/uL (1.8-7.7) 05/14/22 06:50 Lymph # (Auto) 1.4 10^3/uL (0.8-4.8) 05/14/22 06:50 [place] # (Auto) 0.7 10^3/uL (0.2-0.9) 05/14/22 06:50 Eos # (Auto) 0.1 10^3/uL (0.0-0.8) 05/14/22 06:50 Baso # (Auto) 0.0 10^3/uL (0.0-0.1) 05/14/22 06:50 Nucleated RBC % (auto) 0 % 05/14/22 06:50 Nucleated RBCs # 0.0 /100WBC 05/14/22 06:50 Sodium 135 mmol/L (136-145) L 05/14/22 06:50 Potassium 3.9 mmol/L (3.5-5.1) 05/14/22 06:50 Chloride 97 mmol/L (98-107) L 05/14/22 06:50 Carbon Dioxide 29 mmol/L (22-29) 05/14/22 06:50 Anion Gap 12.9 (5-19) 05/14/22 06:50 BUN 16 mg/dL (8-23) 05/14/22 06:50 Creatinine 0.6 mg/dL (0.7-1.2) L 05/14/22 06:50 GFR Calculation 134.8 mL/min (90-130) H 05/14/22 06:50 Glucose 140 mg/dL (65-115) H 05/14/22 06:50 Calculated Osmolality 283 mOsm/kg (285-295) L 05/14/22 06:50 Calcium 9.2 mg/dL (8.5-10.5) 05/14/22 06:50 Total Bilirubin 1.3 mg/dL (0.15-1.2) H 05/14/22 06:50 AST 113 U/L (0-40) H 05/14/22 06:50 ALT 63 U/L (0-41) H 05/14/22 06:50 Alkaline Phosphatase 106 IU/L (40-130) 05/14/22 06:50 Total Protein 7.6 g/dL (6.6-8.7) 05/14/22 06:50 Albumin 3.8 g/dL (3.5-5.2) 05/14/22 06:50 Globulin 3.8 g/dL (1.3-4.6) 05/14/22 06:50 Lipase 42 U/L (13-60) 05/14/22 06:50 Urine Color Yellow (Yellow) 05/14/22 07:55 Urine Appearance Clear (CLEAR) 05/14/22 07:55 Urine pH 7 (5-7) 05/14/22 07:55 Ur Specific [place] 1.015 (1.005-1.030) 05/14/22 07:55 Urine Protein Neg (Negative) 05/14/22 07:55 Urine Glucose (UA) Norm (Normal) 05/14/22 07:55 Urine Ketones Negative (Negative) 05/14/22 07:55 Urine Blood Neg (Negative) 05/14/22 07:55 Urine Nitrate Negative (Negative) 05/14/22 07:55 Urine Bilirubin Neg (Negative) 05/14/22 07:55 Urine Urobilinogen 8 mg/dL (Negative) H 05/14/22 07:55 Ur Leukocyte Esterase Negative (Negative) 05/14/22 07:55 Discharge Plan Discharge Patient Disposition: Home Clinical Impression: Alcoholic gastritis, Alcoholic cirrhosis Condition: Stable Prescriptions: New Protonix 40 mg tablet,delayed release (DR/EC) 40 mg PO BID 14 Days Qty: 28 0RF amlodipine 5 mg tablet 5 mg PO DAILY Qty: 30 0RF No Action albuterol sulfate 90 mcg/actuation HFA aerosol inhaler 2 puff inhalation Q4H PRN (Reason: shortness of breath or wheezing) Qty: 8.5 5RF Rx Instructions: 340 B medications lisinopril 20 mg tablet 20 mg PO QAM 0RF Rx Instructions: 340 B medications Discharge Orders: Discharge ED (Routine); Ordered 05/14/22 Ordered By: Lan Haywood Referrals: Karlos Gallardo MD [Primary Care Provider] - Patient Instructions: Cirrhosis (ED), Abuse of Alcohol (ED), Opioid Safety Activity Restrictions/Additional Instructions: Abstain from alcohol. Follow-up with your primary care provider to reevaluate need to continue the Protonix after 2 weeks and to reevaluate your blood pressure. Your blood pressure was extremely high today in the emergency room add amlodipine 5 mg daily in addition to the lisinopril that you take regularly. Coding Level of Care Code ED Wick And Base Assembler for Johng Fwd Exam Comprehensive
[2022-05-14] MEDS: ketorolac 30 mg/mL INJ IVP (06:57)
[2022-05-14] MEDS: ondansetron 2 mg/ML SDV 2 mL 4 MG IVP (06:57)
[2022-05-14] MEDS: sodium chloride 0.9% 1,000 ML 999 ML IV (06:58)
[2022-05-14] MEDS: lidocaine 2% viscous 15 ML, aluminum-mag hydrox-simethicon 30 ML, sucralfate oral liq 1 GM PO (06:58)
--- NOTE | 2022-05-14 07:00 | PC.NURSE ---
Report from ARSLAN Harris. Patient awake c/o of pain. material handler 2nd shift nurse giving meds now.
[2022-05-14 07:09] LABS: Basophils % 0.3 %; Eosinophils # 0.1 10^3/uL (0.0-0.8); Eosinophils % 0.9 %; Hematocrit 47.3 % (42.0-52.0); Hemoglobin 16.3 g/dL (11.7-16.6); Lymphocytes # 1.4 10^3/uL (0.8-4.8); Lymphocytes % 21.6 %; Mean Corpuscular HGB Conc 34.5 g/dL (30.0-36.0); Mean Corpuscular Hemoglobin 33.9 pg (28.0-34.0); Mean Corpuscular Volume 98.3 fl (80-94); Mean Platelet Volume 10.2 fL (7.4-10.4); Monocytes # 0.7 10^3/uL (0.2-0.9); Monocytes % 10.2 %; Neutrophils % 66.8 %; Nucleated Red Blood Cells % 0 %; Platelet Count 154 10^3/cmm (130-400); Red Blood Count 4.81 10^6/uL (4.1-5.3); Red Cell Distribution Width 12.9 % (12.1-15.1); White Blood Count 6.6 10^3/uL (4.0-10.0)
[2022-05-14 07:30] LABS: Alanine Aminotransferase 63 U/L (0-41); Albumin Level 3.8 g/dL (3.5-5.2); Alkaline Phosphatase 106 IU/L (40-130); Anion Gap 12.9 (5-19); Aspartate Amino Transferase 113 U/L (0-40); Blood Urea Nitrogen 16 mg/dL (8-23); Calcium 9.2 mg/dL (8.5-10.5); Carbon Dioxide 29 mmol/L (22-29); Chloride 97 mmol/L (98-107); Globulin 3.8 g/dL (1.3-4.6); Glomerular Filtration Rate 134.8 mL/min (90-130); Glucose 140 mg/dL (65-115); Lipase 42 U/L (13-60); Osmolality Calculated 283 mOsm/kg (285-295); Potassium 3.9 mmol/L (3.5-5.1); Sodium 135 mmol/L (136-145); Total Bilirubin 1.3 mg/dL (0.15-1.2); Total Protein 7.6 g/dL (6.6-8.7)
[2022-05-14 07:31] VITALS: BP 195/115; PULSE 90; RESP 18; O2SAT 95
[2022-05-14 07:37] LABS: Creatinine Clr Calc Pharmacy 94.1244
--- NOTE | 2022-05-14 07:39 | US_ITS ---
WS: [id number] RIGHT UPPER QUADRANT ULTRASOUND HISTORY: elevate LFTs, t bili COMPARISON: 01/21/2022 Liver: 13.7 cm in length. Normal size liver with moderately coarse echotexture throughout. Surface of the liver is nodular. No mass or bile duct dilatation. Portal Vein: Normal hepatopetal flow with monophasic waveform. Gallbladder: Normally distended gallbladder. No stones or wall thickening. No pericholecystic fluid. CBD: 0.5 cm Pancreas: Normal size and echogenicity. Right kidney: 9.6 cm in length. Normal size and echogenicity. No hydronephrosis or mass. Aorta and IVC: Unremarkable abdominal aorta and IVC. No ascites. US/US gall bladder 52710 IMPRESSION: 1. No cholelithiasis or gallbladder wall thickening. Normal size gallbladder. 2. Cirrhotic liver. 3. No bile duct dilatation.
[2022-05-14 07:51] VITALS: RESP 18; O2SAT 98
[2022-05-14] MEDS: morphine 4 mg/mL SDV 1 mL IVP (07:51)
[2022-05-14 08:15] VITALS: BP 188/114; PULSE 92; RESP 18; O2SAT 97
[2022-05-14] MEDS: hyDRALAzine 20 mg/mL INJ 1 mL IVP (08:16)
[2022-05-14] MEDS: metoprolol tartrate 1 mg/1 mL SDV 5 mL 5 MG IVP (08:19)
[2022-05-14 08:35] LABS: Add Urine Microscopic? NO; Charge for UA Resulting for Rev
[2022-05-14 08:39] LABS: Bilirubin Urine Neg (Negative); Blood Urine Neg (Negative); Glucose Urine UA Norm (Normal); Ketones Urine Negative (Negative); Leukocyte Esterase Urine Negative (Negative); Nitrate Urine Negative (Negative); Protein Urine Neg (Negative); Specific Gravity, Urine 1.015 (1.005-1.030); Urine Appearance Clear (CLEAR); Urine Color Yellow (Yellow); Urobilinogen Urine 8 mg/dL (Negative); pH Urine 7 (5-7)
[2022-05-14 08:53] VITALS: BP 136/81; PULSE 93; RESP 18; O2SAT 97
== END 2022-05-14 09:07 | disposition home or self-care (01) ==
PROVIDERS: Emergency Provider Family Medicine; PCP Family Medicine Adult Medicine
DX: K29.20 Alcoholic gastritis without bleeding (principal); K70.30 Alcoholic cirrhosis of liver without ascites; J44.9 Chronic obstructive pulmonary disease, unspecified; I10 Essential (primary) hypertension
CPT/HCPCS: 74176; 76705; 80053; 81003; 83690; 85025; 93005; 96361; 96374; 96375; 99285; J0360; J1885; J2270; J2405; J3490; J7030

== ENCOUNTER 2022-09-25 18:22 | Emergency (ER) | payer MEDICARE, MEDICAID, SELFPAY ==
[2022-09-25 18:38] VITALS: BP 175/100; PULSE 94; RESP 20; TEMP 36.2; O2SAT 95
[2022-09-25] MEDS: lidocaine 2% viscous 15 ML, aluminum-mag hydrox-simethicon 30 ML, sucralfate oral liq 1 GM PO (19:11)
[2022-09-25] MEDS: sodium chloride 0.9% 1,000 ML 999 ML IV (19:12)
[2022-09-25 19:24] LABS: Basophils % 0.3 %; Eosinophils # 0.1 10^3/uL (0.0-0.8); Eosinophils % 0.9 %; Hematocrit 51.8 % (42.0-52.0); Lymphocytes # 1.2 10^3/uL (0.8-4.8); Lymphocytes % 11.3 %; Mean Corpuscular HGB Conc 32.8 g/dL (30.0-36.0); Mean Corpuscular Hemoglobin 32.8 pg (28.0-34.0); Mean Corpuscular Volume 99.8 fl (80-94); Mean Platelet Volume 10.8 fL (7.4-10.4); Monocytes # 0.5 10^3/uL (0.2-0.9); Monocytes % 5.3 %; Neutrophils # 8.35 10^3/uL (1.8-7.7); Neutrophils % 81.8 %; Nucleated Red Blood Cells % 0 %; Platelet Count 171 10^3/cmm (130-400); Red Blood Count 5.19 10^6/uL (4.1-5.3); Red Cell Distribution Width 12.9 % (12.1-15.1); White Blood Count 10.2 10^3/uL (4.0-10.0)
[2022-09-25 19:38] LABS: INR 1.04 (0.8-1.2)
[2022-09-25 19:44] LABS: Lactate (Lactic Acid level) 1.5 mmol/L (0.5-2.2)
[2022-09-25 19:46] LABS: Alanine Aminotransferase 44 U/L (0-41); Albumin Level 3.8 g/dL (3.5-5.2); Alkaline Phosphatase 138 U/L (40-130); Anion Gap 12.5 (5-19); Aspartate Amino Transferase 42 U/L (0-40); Blood Urea Nitrogen 21 mg/dL (8-23); Calcium 9.4 mg/dL (8.5-10.5); Carbon Dioxide 30 mmol/L (22-29); Chloride 99 mmol/L (98-107); Globulin 4.8 g/dL (1.3-4.6); Glomerular Filtration Rate 112.8 mL/min (90-130); Glucose 141 mg/dL (65-115); Lipase 57 U/L (13-60); Osmolality Calculated 291 mOsm/kg (285-295); Potassium 3.5 mmol/L (3.5-5.1); Sodium 138 mmol/L (136-145); Total Protein 8.6 g/dL (6.6-8.7)
[2022-09-25 19:52] LABS: Alcohol Level < 10 mg/dL (0-10)
[2022-09-25 20:00] VITALS: BP 157/113; PULSE 107; RESP 20; O2SAT 93
[2022-09-25 20:01] LABS: Add Urine Microscopic? NO; Charge for UA Resulting for Rev
[2022-09-25 20:27] LABS: Bilirubin Urine Neg (Negative); Blood Urine Neg (Negative); Glucose Urine UA Norm (Normal); Ketones Urine Negative (Negative); Nitrate Urine Negative (Negative); Protein Urine Neg (Negative); Urine Appearance Clear (CLEAR); Urine Color Yellow (Yellow); pH Urine 5 (5-7)
[2022-09-25 20:28] LABS: Leukocyte Esterase Urine Negative (Negative); Urobilinogen Urine Neg (Negative)
[2022-09-25 20:45] VITALS: RESP 18
[2022-09-25] MEDS: morphine 4 mg/mL SDV 1 mL IVP (20:45)
[2022-09-25] MEDS: ondansetron 2 mg/ML SDV 2 mL 4 MG IVP (20:45)
--- NOTE | 2022-09-25 21:11 | ED_ITS ---
HPI - Abdominal Pain General: Chief Complaint: Abdominal Pain Stated Complaint: ABD PAIN Time Seen by Provider: 09/25/22 18:33 Source: patient History of Present Illness: 66-year-old male who complains of epigastric abdominal pain, vomiting and diarrhea since around noon today. No fever. No blood in the stool or vomit. He says that he has a history of this. The pain is improved since it started, but is still there. He denies a history of belly surgeries. Denies recent illness acutely otherwise. He is a bit of a poor historian. MD elicited complaint: abdominal pain Pertinent past history: other Onset (ago): hour(s) Pain Consistency: constant Location: Epigastric Severity: moderate Quality: aching Radiation: epigastric Migration to: no migration Exacerbating factors: vomiting Relieving factors: nothing Associated Symptoms: Reports bloating, diarrhea, dyspepsia, nausea and vomiting; Denies constipation, fever(s), hematochezia and hematemesis Review of Systems Const: Denies: fever(s) ENMT: Denies: throat pain Card: Denies: chest pain or palpitations Resp: Reports: non-productive cough; Denies: dyspnea GI: Reports: nausea, vomiting, diarrhea and bloating; Denies: hematemesis, constipation or hematochezia Musc: Denies: back pain PFSH ED PFSH: Medical History Alcohol dependence COPD (chronic obstructive pulmonary disease) COPD exacerbation GERD (gastroesophageal reflux disease) Hypertension Left breast mass Psoriasis Sexual dysfunction Smoker unmotivated to quit Family History Mother Cancer stomach Denies family history of Anesthesia complication Bleeding disorder Social History Smoking and tobacco status: never smoked Alcohol intake: current Alcohol intake frequency: few times a week Lives independently: Yes Marital status: Single Number of children: 3 Number of grandchildren: 3 service: No Current occupational status: retired and disabled History of recent travel: No Physical Exam Const: COMMON NORMALS: no acute distress GENERAL APPEARANCE: lethargic; not frail appearing ORIENTATION/CONSCIOUSNESS: Yes awake, Yes oriented to person, Yes oriented to place and Yes lethargic HENMT: COMMON NORMALS: normocephalic, atraumatic and Normal external nose present HEAD & SCALP: normocephalic and atraumatic FACE & SINUS: normal facial exam NOSE: Normal external nose present Eye: COMMON NORMALS: Equal, round and reactive pupils present and EOMs intact bilaterally PUPIL: Yes Equal, round and reactive pupils present Neck/C-Spine: GENERAL: Yes trachea midline Chest: CHEST: Yes Symmetrical chest wall rise Resp: COMMON NORMALS: normal respiratory effort, No use of accessory muscles and clear to auscultation bilaterally AUSCULTATION: clear to auscultation bilaterally Cardio: COMMON NORMALS: regular rate and regular rhythm RATE: regular rate RHYTHM: regular rhythm GI: COMMON NORMALS: Normal to inspection, nondistended, normoactive bowel sounds present, Soft to palpation and non-tender (distracted palpation shows no reproducible tenderness) PALPATION: Yes Soft to palpation Extremity: COMMON NORMALS: no pedal edema Neuro: ANITA COMA SCALE: document GCS findings Anita coma scale eye opening: Spontaneous Pec[place]iar coma scale verbal response: Orientated Peculiar coma scale motor response: Obey commands Peculiar coma scale total score: 15 SENSORIUM/ORIENTATION: Yes oriented to person, Yes oriented to place and Yes lethargic Psych: COMMON NORMALS: cooperative Course Vital Signs: Vital signs: Vital Signs Temperature 97.2 F L 09/25/22 18:38 Pulse Rate 107 H 09/25/22 20:00 Respiratory Rate 18 09/25/22 20:45 Blood Pressure 157/113 09/25/22 20:00 Pulse Oximetry 93 09/25/22 20:00 Oxygen Delivery Me thod 09/25/22 18:38 MDM - Abdominal Pain Medical Decision Making Patient is mildly lethargic. He is slightly hemoconcentrated. Vitals have been okay. Slightly tachycardic mildly hypertensive. White count 10.2. Hemoglobin 17. Urinalysis is negative. Alcohol is negative. His CRP is 3. INR is 1. Lactate is 1.5. Liver enzymes are minimally elevated, but have been higher in the past. Patient is improved after GI cocktail morphine and Zofran as well as fluid. No vomiting or diarrhea since here. He will be allowed discharge home. Lab Data 09/25/22 18:00 09/25/22 18:00 Labs/Radiology: Laboratory Results WBC 10.2 10^3/uL (4.0-10.0) H 09/25/22 18:00 RBC 5.19 10^6/uL (4.1-5.3) 09/25/22 18:00 Hgb 17.0 g/dL (11.7-16.6) H 09/25/22 18:00 Hct 51.8 % (42.0-52.0) 09/25/22 18:00 MCV 99.8 fl (80-94) H 09/25/22 18:00 MCH 32.8 pg (28.0-34.0) 09/25/22 18:00 MCHC 32.8 g/dL (30.0-36.0) 09/25/22 18:00 RDW 12.9 % (12.1-15.1) 09/25/22 18:00 Plt Count 171 10^3/cmm (130-400) 09/25/22 18:00 MPV 10.8 fL (7.4-10.4) H 09/25/22 18:00 Neut % (Auto) 81.8 % 09/25/22 18:00 Lymph % (Auto) 11.3 % 09/25/22 18:00 [place] % (Auto) 5.3 % 09/25/22 18:00 Eos % (Auto) 0.9 % 09/25/22 18:00 Baso % (Auto) 0.3 % 09/25/22 18:00 Neut # (Auto) 8.35 10^3/uL (1.8-7.7) H 09/25/22 18:00 Lymph # (Auto) 1.2 10^3/uL (0.8-4.8) 09/25/22 18:00 [place] # (Auto) 0.5 10^3/uL (0.2-0.9) 09/25/22 18:00 Eos # (Auto) 0.1 10^3/uL (0.0-0.8) 09/25/22 18:00 Baso # (Auto) 0.0 10^3/uL (0.0-0.1) 09/25/22 18:00 Nucleated RBC % (auto) 0 % 09/25/22 18:00 Nucleated RBCs # 0.0 /100WBC 09/25/22 18:00 PT 14.00 SECONDS (12.1-14.9) 09/25/22 18:10 INR 1.04 (0.8-1.2) 09/25/22 18:10 Sodium 138 mmol/L (136-145) 09/25/22 18:00 Potassium 3.5 mmol/L (3.5-5.1) 09/25/22 18:00 Chloride 99 mmol/L (98-107) 09/25/22 18:00 Carbon Dioxide 30 mmol/L (22-29) H 09/25/22 18:00 Anion Gap 12.5 (5-19) 09/25/22 18:00 BUN 21 mg/dL (8-23) 09/25/22 18:00 Creatinine 0.7 mg/dL (0.7-1.2) 09/25/22 18:00 GFR Calculation 112.8 mL/min (90-130) 09/25/22 18:00 Glucose 141 mg/dL (65-115) H 09/25/22 18:00 Calculated Osmolality 291 mOsm/kg (285-295) 09/25/22 18:00 Lactate 1.5 mmol/L (0.5-2.2) 09/25/22 18:00 Calcium 9.4 mg/dL (8.5-10.5) 09/25/22 18:00 Total Bilirubin 1.0 mg/dL (0.15-1.2) 09/25/22 18:00 AST 42 U/L (0-40) H 09/25/22 18:00 ALT 44 U/L (0-41) H 09/25/22 18:00 Alkaline Phosphatase 138 U/L (40-130) H 09/25/22 18:00 C-Reactive Protein 3.0 mg/L (0.0-4.9) 09/25/22 18:00 Total Protein 8.6 g/dL (6.6-8.7) 09/25/22 18:00 Albumin 3.8 g/dL (3.5-5.2) 09/25/22 18:00 Globulin 4.8 g/dL (1.3-4.6) H 09/25/22 18:00 Lipase 57 U/L (13-60) 09/25/22 18:00 Urine Color Yellow (Yellow) 09/25/22 19:53 Urine Appearance Clear (CLEAR) 09/25/22 19:53 Urine pH 5 (5-7) 09/25/22 19:53 Ur Specific [place] 1.020 (1.005-1.030) 09/25/22 19:53 Urine Protein Neg (Negative) 09/25/22 19:53 Urine Glucose (UA) Norm (Normal) 09/25/22 19:53 Urine Ketones Negative (Negative) 09/25/22 19:53 Urine Blood Neg (Negative) 09/25/22 19:53 Urine Nitrate Negative (Negative) 09/25/22 19:53 Urine Bilirubin Neg (Negative) 09/25/22 19:53 Urine Urobilinogen Neg mg/dL (Negative) 09/25/22 19:53 Ur Leukocyte Esterase Negative (Negative) 09/25/22 19:53 Ethyl Alcohol < 10 mg/dL (0-10) 09/25/22 18:00 Discharge Plan Discharge Patient Disposition: Home Clinical Impression: Abdominal pain Condition: Stable Prescriptions: New ondansetron 4 mg film 4 mg PO DAILY PRN (Reason: nausea and vomiting) Qty: 10 0RF Discontinued azithromycin 250 mg tablet See Rx Instructions PO .COMPLEX Qty: 6 0RF Rx Instructions: For 250 mg dose pack: take 500 mg today (day 1), then 250 mg for 4 days (days 2-5) PO No Action amlodipine 5 mg tablet 5 mg PO DAILY Qty: 30 5RF lisinopril 20 mg tablet 20 mg PO QAM Qty: 30 5RF Rx Instructions: 340 B medications pantoprazole 40 mg tablet,delayed release (DR/EC) 40 mg PO DAILY Qty: 30 3RF prednisone 20 mg tablet 60 mg PO DAILY 5 Days Qty: 15 0RF albuterol sulfate 90 mcg/actuation HFA aerosol inhaler 2 puff inhalation Q4H PRN (Reason: shortness of breath or wheezing) Qty: 8.5 5RF Rx Instructions: 340 B medications benzonatate 200 mg capsule 200 mg PO TID PRN (Reason: cough) Qty: 20 0RF triamcinolone acetonide 0.5 % cream 1 applic topical BID Qty: 15 3RF tadalafil [Cialis] 5 mg tablet 2.5 mg PO DAILY PRN (Reason: sexual activity) Qty: 30 1RF Discharge Orders: Discharge ED (Routine); Ordered 09/25/22 Ordered By: Bautista Berrios Referrals: Karlos Gallardo MD [Primary Care Provider] - 1-3 days Discharge Diet: Advance as tolerated and Clear Liquid Discharge Activity: Increase activity as tolerated Patient Instructions: Abdominal Pain (ED), Opioid Safety, Pain Management Activity Restrictions/Additional Instructions: Laboratory testing did not reveal a cause of your abdominal pain or vomiting. Continue your pantoprazole. Use medication prescribed for nausea or vomiting. Return for fever greater than 100, vomiting liquids or medications despite treatment, worsening pain despite treatment, other concerning symptoms. Follow- up with your doctor early next week. Coding Level of Care Code ED Program Host for Orlando Corrales
[2022-09-25 21:24] VITALS: BP 160/91; PULSE 112; RESP 19; O2SAT 94
== END 2022-09-25 21:20 | disposition home or self-care (01) ==
PROVIDERS: Emergency Provider Emergency Medicine; PCP Family Medicine Adult Medicine
DX: R10.13 Epigastric pain (principal); J44.9 Chronic obstructive pulmonary disease, unspecified; I10 Essential (primary) hypertension
CPT/HCPCS: 80053; 80307; 81003; 83605; 83690; 85025; 85610; 86140; 96361; 96374; 96375; 99284; J2270; J2405; J7030

== ENCOUNTER 2024-09-10 12:22 | Inpatient (IN) | payer MEDICARE, MEDICAID, SELFPAY ==
[2024-09-10 12:48] VITALS: BP 149/84; PULSE 107; RESP 19; TEMP 36.7; O2SAT 96; BMI 25.1
--- NOTE | 2024-09-10 13:11 | ECG_ITS ---
[facility]: 2024[facility]10 Pat Name: Ned Sherwood Department: Room: Gender: Male Ultrasound Sonographer: : 1955 Requested By: Savanna Guerrero Order Number: [id number] Parish MD: Mariano Barry M.D. Measurements Intervals [place] Rate: 104 P: 74 [place]: 162 QRS: 42 QRSD: 82 T: 54 QT: 330 QTc: 434 Interpretive Statements SINUS TACHYCARDIA Poor R wave progression suggesting possible old anteroseptal NC ABNORMAL RHYTHM ECG Compared to ECG 05/14/2022 07:15:51 Sinus rhythm no longer present Electronically Signed On 09-10-2024 19:18:15 BARREL ASSEMBLER HELPER by Mariano Barry M.D. [email or web address]
--- NOTE | 2024-09-10 13:11 | XR_ITS ---
WS: [id number] Exam: XR chest 1V portable [id number] Date/Time of Exam: 09/10/2024 1:11 PM Reason For Exam: Shortness of breath Comparison 11/01/2017. Lungs are fully inflated and clear. Normal cardiomediastinal silhouette and regional bony elements. N o pleural effusion. XR/XR chest 1V portable [id number] IMPRESSION: 1. Negative chest.
[2024-09-10 14:35] LABS: Basophils % 0.2 %; Eosinophils # 0.1 10^3/uL (0.0-0.8); Hematocrit 39.6 % (37-53); Lymphocytes # 0.7 10^3/uL (0.8-4.8); Lymphocytes % 8.4 %; Mean Corpuscular HGB Conc 32.3 g/dL (30-55); Mean Corpuscular Hemoglobin 32.1 pg (27-33); Mean Corpuscular Volume 99.2 fl (82-101); Mean Platelet Volume 10.8 fL (7.4-10.4); Monocytes # 1.1 10^3/uL (0.2-0.9); Monocytes % 13.3 %; Neutrophils # 6.39 10^3/uL (1.8-7.7); Neutrophils % 76.6 %; Nucleated Red Blood Cells % 0 %; Platelet Count 147 10^3/cmm (157-399); Red Blood Count 3.99 10^6/uL (3.85-5.65); Red Cell Distribution Width 14.6 % (12.1-15.1); White Blood Count 8.34 10^3/uL (3.29-11.43)
[2024-09-10 14:51] LABS: Lactic Sepsis W/Reflex 3.1 mmol/L (0.5-2.2)
[2024-09-10 14:53] LABS: Troponin(5th) Baseline 10 ng/L (0-15)
[2024-09-10 15:01] LABS: Alanine Aminotransferase 54 U/L (0-41); Albumin Level 3.2 g/dL (3.5-5.2); Alkaline Phosphatase 163 U/L (40-130); Anion Gap 12.9 (5-19); Aspartate Amino Transferase 103 U/L (0-40); Blood Urea Nitrogen 18 mg/dL (8-23); Calcium 7.8 mg/dL (8.5-10.5); Carbon Dioxide 27 mmol/L (22-29); Chloride 101 mmol/L (98-107); Creatinine Clr Calc Pharmacy 91.5805; Globulin 3.1 g/dL (1.3-4.6); Glomerular Filtration Rate 112.1 mL/min (90-130); Glucose 159 mg/dL (65-115); NT Pro B Type Natriuretic Pept 128 pg/mL (0-125); Osmolality Calculated 289 mOsm/kg (285-295); Potassium 3.9 mmol/L (3.5-5.1); Sodium 137 mmol/L (136-145); Total Bilirubin 2.7 mg/dL (0.15-1.2); Total Protein 6.3 g/dL (6.6-8.7)
[2024-09-10 16:14] LABS: Reflex Lactate Order REFLEX LACTIC ORDERD
--- NOTE | 2024-09-10 16:31 | ECG_ITS ---
[facility] Date: 2024-09-10 Pat Name: Ned Sherwood Department: Room: Gender: Male Associate Entertainment Editor: : 1955 Requested By: Savanna Guerrero Order Number: [id number] Lugo MD: Mariano Barry M.D. Measurements Intervals [place] Rate: 111 P: 76 WI: 151 QRS: 57 QRSD: 84 T: 65 QT: 311 QTc: 423 Interpretive Statements SINUS TACHYCARDIA poor R wave progression ABNORMAL RHYTHM ECG Compared to ECG 09/10/2024 12:46:30 No significant changes Electronically Signed On 09-10-2024 19:34:00 COMMUNITY DEVELOPMENT DIRECTOR by Mariano Barry M.D. [email or web address]
[2024-09-10 16:34] LABS: Troponin 5 2HR 9.57 ng/L (0-15)
[2024-09-10 16:35] LABS: Troponin 5 2HR Delta -0.43 ABS# (0-10)
[2024-09-10 17:22] LABS: Lactic Acid level (Lactate) 1.9 mmol/L (0.5-2.2)
--- NOTE | 2024-09-10 19:11 | ECG_ITS ---
[facility] Date: 2024-09-10 Pat Name: Ned Sherwood Department: Room: Gender: Male Bleaching Machine Operator: : 1955 Requested By: Savanna Guerrero Order Number: [id number] Parish MD: Mariano Barry M.D. Measurements Intervals [place] Rate: 104 P: 73 [place]: 154 QRS: 41 QRSD: 88 T: 55 QT: 336 QTc: 443 Interpretive Statements SINUS TACHYCARDIA ANTEROSEPTAL MYOCARDIAL INFARCTION , PROBABLY OLD [40+ ms Q WAVE IN V1-V4] Compared to ECG 09/10/2024 16:31:12 Myocardial infarct finding now present Poor R-wave progression no longer present Electronically Signed On 09-12-2024 18:06:09 CALL OUT CLERK by Mariano Barry M.D. [email or web address]
--- NOTE | 2024-09-10 21:57 | CTR_ITS ---
PROCEDURE INFORMATION: Exam: CT Chest With Contrast; Diagnostic Exam date and time: 09/10/2024 10:21 PM Age: 68 years old Clinical indication: Abdominal pain; Generalized; Chest wall pain; Additional info: Anasarca, elevated lfts/bili, recent pneumonia, dyspnea TECHNIQUE: Imaging protocol: Diagnostic computed tomography of the chest with contrast. Radiation optimization: All CT scans at this facility use at least one of these dose optimization techniques: automated exposure control; mA and/or kV adjustment per patient size (includes targeted exams where dose is matched to clinical indication); or iterative reconstruction. Contrast material: OMNI 350; Contrast volume: 100 ml; Contrast route: INTRAVENOUS (IV); COMPARISON: CR XR chest 1V portable [id number] 09/10/2024 1:56 PM RADIATION DOSE METRICS: Total DLP (mGy-cm): 0 FINDINGS: Lungs: Emphysematous changes of the lungs. Pleural spaces: Unremarkable. No pneumothorax. No pleural effusion. Heart: Unremarkable. No cardiomegaly. No pericardial effusion. Coronary arteries: Coronary artery calcifications. Lymph nodes: Unremarkable. No enlarged lymph nodes. 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 Bones/joints: Sclerotic lesion of the inferior endplate of the T4 vertebral body. Insulin Soft tissues: Unremarkable. COMMENTS: The presence of pulmonary emphysema on CT is an independent risk factor for lung cancer. In the absence of a history or active diagnosis of lung cancer, it is recommended that this patient with emphysema be evaluated for enrollment in a low dose CT lung cancer screening program. PROCEDURE INFORMATION: Exam: CT Abdomen And Pelvis With Contrast Exam date and time: 09/10/2024 10:21 PM Age: 68 years old Clinical indication: Abdominal pain; Generalized; Chest wall pain; Additional info: Anasarca, elevated lfts/bili, recent pneumonia, dyspnea TECHNIQUE: Imaging protocol: Computed tomography of the abdomen and pelvis with contrast. Radiation optimization: All CT scans at this facility use at least one of these dose optimization techniques: automated exposure control; mA and/or kV adjustment per patient size (includes targeted exams where dose is matched to clinical indication); or iterative reconstruction. Contrast material: OMNI 350; Contrast volume: 100 ml; Contrast route: INTRAVENOUS (IV); COMPARISON: CT abdomen pelvis wo con [id number] 05/14/2022 6:35 AM RADIATION DOSE METRICS: Total DLP (mGy-cm): 771.8 FINDINGS: Liver: Cirrhosis. Interval development of innumerable hypodense lesion mainly in the left hepatic lobe with the dominant lesion measuring up to 1.9 cm. Gallbladder and biliary ducts: Normal. No calcified stones. No ductal dilation. Pancreas: Normal. No ductal dilation. Spleen: Splenomegaly. Adrenal glands: Normal. No mass. Kidneys and ureters: Normal. No hydronephrosis. Stomach and bowel: Colonic diverticulosis without adjacent fat stranding. There is some thickening of the right hemicolon which is likely related to portal venous colopathy. No bowel obstruction. Appendix: No evidence of appendicitis. Intraperitoneal space: Moderate ascites. No free air. Vasculature: There are upper abdominal varices. Lymph nodes: Unremarkable. No enlarged lymph nodes. Urinary bladder: Unremarkable as visualized. Reproductive: Mild prostatomegaly. Bones/joints: Unremarkable. No acute fracture. Soft tissues: Umbilical hernia containing fat and vessel. Small fat containing inguinal hernias. CT/CT chest abdpel w/*[id number] IMPRESSION: 1. No definite acute intrathoracic process. 2. Incidental/chronic findings as above. IMPRESSION: 1. Cirrhotic morphology of the liver and stigmata of portal venous hypertension. There has been interval development of numerous hypodense lesions in the left hepatic lobe with the dominant lesion measuring up to 1.9 cm. These may relate to regenerative nodules and/or hepatocellular carcinoma. These findings need to be further interrogated with follow up MRI abdomen with and without contrast utilizing liver mass protocol. 2. Right hemicolon wall thickening may be related to portal venous colopathy. 3 additional incidental/chronic findings as above.
--- NOTE | 2024-09-10 21:59 | ED_ITS ---
HPI - SOB/Dyspnea 2 General: Chief Complaint: Shortness of Breath/Dyspnea Stated Complaint: SOB, swelled up all over and hurting Time Seen by Provider: 09/10/24 21:53 History of Present Illness: HPI Narrative: Presents to the ER with complaint of shortness of breath and abdominal distention. He says he is finished 1 of of antibiotics for pneumonia I did necessarily seem to help he saw his PCP and was started on another round of antibiotics he took 1 dose and thinks this caused his abdomen to get firm and distended with fluid in his feet and legs as well 2. Related Data Home Medications Medication Instructions Recorded Confirmed amoxicillin 500 mg capsule 500 mg PO Q12H 09/06/24 09/06/24 Previous Rx's Medication Instructions Recorded albuterol sulfate 90 mcg/actuation 2 puff inhalation Q4H PRN 02/02/24 aerosol inhaler shortness of breath or wheezing #8.5 grams amlodipine 5 mg tablet 5 mg PO DAILY blood pressure #30 02/02/24 tabs lisinopril 20 mg tablet 20 mg PO QAM blood pressure #30 02/02/24 tabs pantoprazole 40 mg tablet,delayed See Rx Instructions .Route 02/02/24 release .COMPLEX #30 tabs triamcinolone acetonide 0.5 % 1 applic topical BID #15 grams 02/02/24 topical cream tadalafil 5 mg tablet (Cialis) 2.5 mg (1/2 x 5 mg) PO DAILY PRN 06/26/24 sexual activity #30 tabs Allergies Allergy/AdvReac Type Severity Reaction Status Date / Time aspirin Allergy Intermediate Unknown Verified 09/06/24 09:57 Review of Systems 2 General: Reports: 10 or more systems reviewed and unremarkable except in HPI and below PFSH ED 2 PFSH: Medical History Alcoholic cirrhosis Gynecomastia, male GERD (gastroesophageal reflux disease) Sexual dysfunction Alcohol dependence Psoriasis Smoker unmotivated to quit Hypertension COPD (chronic obstructive pulmonary disease) Family History Mother Cancer stomach Denies family history of Anesthesia complication Bleeding disorder Social History Smoking and tobacco/nicotine status: unknown if used tobacco/nicotine Alcohol intake: current Alcohol intake frequency: few times a week Substance/Drug Use: never Lives independently: Yes Marital status: Single Number of children: 3 Number of grandchildren: 3 service: No Current occupational status: retired and disabled Physical Exam 2 Const: COMMON NORMALS: no acute distress, average body habitus, patient oriented x3, no limitations, healthy appearing, alert and well nourished HENMT: COMMON NORMALS: normocephalic, atraumatic, hearing grossly normal bilaterally, external ears normal, Normal external nose present and moist oral mucous membranes HEAD & SCALP: normocephalic and atraumatic NOSE: Normal external nose present EXTERNAL EAR: Yes external ears normal Neck/C-Spine: COMMON NORMALS: no JVD Chest: COMMONS NORMALS: normal inspection of the chest and normal palpation of entire chest wall Resp: COMMON NORMALS: normal respiratory effort, No retractions, No use of accessory muscles and clear to auscultation bilaterally AUSCULTATION: clear to auscultation bilaterally Cardio: COMMON NORMALS: no JVD, regular rate, regular rhythm, S1 normal heart sound present, S2 normal heart sound present, No gallops present (Cardio), No clicks present (Cardio), No murmurs present (Cardio) and No rub (Cardio) R ATE: regular rate RHYTHM: regular rhythm HEART SOUNDS: S1 normal heart sound present and S2 normal heart sound present GI: COMMON NORMALS: Soft to palpation, No hepatosplenomegaly present and no masses; negative for non-tender (Firm to palpate distended diffusely tender) P ALPATION: Yes Soft to palpation and Yes No hepatosplenomegaly present Extremity: NARRATIVE EXTREMITY EXAM: 1-2+ pitting edema bilateral lower extre mities pretibial Neuro: COMMON NORMALS: patient oriented x3 SENSORIUM/ORIENTATION: Yes alert Course 2 Vital Signs: Vital signs: Vital Signs Temperature 98.1 F 09/10/24 12:48 Pulse Rate 102 H 09/10/24 23:05 Respiratory Rate 26 H 09/10/24 23:05 Blood Pressure 145/85 09/11/24 01:35 Pulse Oximetry 93 09/11/24 01:35 Oxygen Delivery Me thod Room Air 09/10/24 12:48 MDM - SOB/Dyspnea Medical Decision Making Chest x-ray was negative, chest abdomen pelvis CT showed no acute intrathoracic process, cirrhotic morphology with portal venous hypertension and or development of numerous lesions within the liver and ascites. Lab work was essentially unremarkable other than mildly elevated liver enzymes with an increase in total bilirubin. Urinalysis showed high specific gravity 1.094, these results was discussed with the patient and Dr. Ahuja, we will place the patient observation and try to get him a paracentesis in the morning if possible. Medical Records I reviewed the patient's medical records. Lab Data I reviewed the patient's lab results. 09/10/24 14:19 09/10/24 14:16 Labs/Radiology: Radiology Impressions Chest X-Ray 09/10/24 13:11 IMPRESSION: 1. Negative chest. Chest/Abdomen/Pelvis CT 09/10/24 21:57 IMPRESSION: 1. No definite acute intrathoracic process. 2. Incidental/chronic findings as above. IMPRESSION: 1. Cirrhotic morphology of the liver and stigmata of portal venous hypertension. There has been interval development of numerous hypodense lesions in the left hepatic lobe with the dominant lesion measuring up to 1.9 cm. These may relate to regenerative nodules and/or hepatocellular carcinoma. These findings need to be further interrogated with follow up MRI abdomen with and without contrast utilizing liver mass protocol. 2. Right hemicolon wall thickening may be related to portal venous colopathy. 3 additional incidental/chronic findings as above. Laboratory Results WBC 8.34 10^3/uL (3.29-11.43) 09/10/24 14:19 RBC 3.99 10^6/uL (3.85-5.65) 09/10/24 14:19 Hgb 12.80 g/dL (11.27-16.99) 09/10/24 14:19 Hct 39.6 % (37-53) 09/10/24 14:19 MCV 99.2 fl (82-101) 09/10/24 14:19 MCH 32.1 pg (27-33) 09/10/24 14:19 MCHC 32.3 g/dL (30-55) 09/10/24 14:19 RDW 14.6 % (12.1-15.1) 09/10/24 14:19 Plt Count 147 10^3/cmm (157-399) L 09/10/24 14:19 MPV 10.8 fL (7.4-10.4) H 09/10/24 14:19 Neut % (Auto) 76.6 % 09/10/24 14:19 Lymph % (Auto) 8.4 % 09/10/24 14:19 [place] % (Auto) 13.3 % 09/10/24 14:19 Eos % (Auto) 1.0 % 09/10/24 14:19 Baso % (Auto) 0.2 % 09/10/24 14:19 Neut # (Auto) 6.39 10^3/uL (1.8-7.7) 09/10/24 14:19 Lymph # (Auto) 0.7 10^3/uL (0.8-4.8) L 09/10/24 14:19 [place] # (Auto) 1.1 10^3/uL (0.2-0.9) H 09/10/24 14:19 Eos # (Auto) 0.1 10^3/uL (0.0-0.8) 09/10/24 14:19 Baso # (Auto) 0.0 10^3/uL (0.0-0.1) 09/10/24 14:19 Nucleated RBC % (auto) 0 % 09/10/24 14:19 Nucleated RBCs # 0.0 /100WBC 09/10/24 14:19 Sodium 137 mmol/L (136-145) 09/10/24 14:16 Potassium 3.9 mmol/L (3.5-5.1) 09/10/24 14:16 Chloride 101 mmol/L (98-107) 09/10/24 14:16 Carbon Dioxide 27 mmol/L (22-29) 09/10/24 14:16 Anion Gap 12.9 (5-19) 09/10/24 14:16 BUN 18 mg/dL (8-23) 09/10/24 14:16 Creatinine 0.7 mg/dL (0.7-1.2) 09/10/24 14:16 GFR Calculation 112.1 mL/min (90-130) 09/10/24 14:16 Glucose 159 mg/dL (65-115) H 09/10/24 14:16 Calculated Osmolality 289 mOsm/kg (285-295) 09/10/24 14:16 Lactic Acid 2.4 mmol/L (0.5-2.2) H 09/10/24 22:06 Lactic Acid (Sepsis) 1.9 mmol/L (0.5-2.2) 09/10/24 16:52 Calcium 7.8 mg/dL (8.5-10.5) L 09/10/24 14:16 Phosphorus 2.5 mg/dL (2.5-4.5) 09/10/24 22:06 Magnesium 1.8 mg/dL (1.7-2.3) 09/10/24 22:06 Total Bilirubin 2.7 mg/dL (0.15-1.2) H 09/10/24 14:16 AST 103 U/L (0-40) H 09/10/24 14:16 ALT 54 U/L (0-41) H 09/10/24 14:16 Alkaline Phosphatase 163 U/L (40-130) H 09/10/24 14:16 Troponin T Baseline 10 ng/L (0-15) 09/10/24 14:19 Troponin T 120 Minute 9.57 ng/L (0-15) 09/10/24 15:57 Delta Troponin T -0.43 ABS# (0-10) L 09/10/24 15:57 Troponin T Hi Sens 6Hr 11.00 ng/L (0-15) 09/10/24 20:28 Troponin T Hi Sens 6Hr Delta 1.00 ng/L (0-12) 09/10/24 20:28 NT-Pro-B Natriuret Pep 140 pg/mL (0-125) H 09/10/24 22:06 Total Protein 6.3 g/dL (6.6-8.7) L 09/10/24 14:16 Albumin 3.2 g/dL (3.5-5.2) L 09/10/24 14:16 Globulin 3.1 g/dL (1.3-4.6) 09/10/24 14:16 Lipase 37 U/L (13-60) 09/10/24 22:06 Procalcitonin 0.24 ng/mL (0-0.5) 09/10/24 22:06 Urine Color Dark yellow (Yellow) A 09/11/24 00:30 Urine Appearance Clear (CLEAR) 09/11/24 00:30 Urine pH 5.0 (5-7) 09/11/24 00:30 Ur Specific [place] 1.094 (1.005-1.030) H 09/11/24 00:30 Urine Protein Trace (Negative) A 09/11/24 00:30 Urine Glucose (UA) Negative (Normal) 09/11/24 00:30 Urine Ketones Negative (Negative) 09/11/24 00:30 Urine Blood Negative (Negative) 09/11/24 00: Urine Nitrate Negative (Negative) 09/11/24 00:30 Urine Bilirubin 1+ (Negative) H 09/11/24 00: Urine Urobilinogen 2.0 mg/dL (Negative) H 09/11/24 00:30 Ur Leukocyte Esterase Negative (Negative) 09/11/24 00:30 Urine RBC 0-2 /hpf (0-2) 09/11/24 00:30 Urine WBC 0-5 /hpf (0-5) 09/11/24 00:30 Ur Squamous Epith Cells 0-5 /hpf (0-5) 09/11/24 00: Amorphous Sediment Not Reportable 09/11/24 00: Urine Bacteria None seen /hpf (NONE) 09/11/24 00:30 Hyaline Casts 0-4 /lpf H 09/11/24 00:30 All radiology interpretation(s) finalized by discharge Discharge Plan Discharge Patient Disposition: Placed in Observation Clinical Impression: Alcoholic cirrhosis Qualifiers: Ascites presence: with ascites Qualified Code(s): K70.31 - Alcoholic cirrhosis of liver with ascites Coding Level of Care Code ED Asphalt Patcher for Orlando Corrales
[2024-09-10] MEDS: iohexol 350 mg/mL 500 mL Btl (per mL) IV (22:33)
[2024-09-10 22:35] LABS: Lactic Sepsis W/Reflex 2.4 mmol/L (0.5-2.2)
[2024-09-10] MEDS: morphine 4 mg/mL SDV 1 mL 2 MG IVP (22:44)
[2024-09-10] MEDS: ondansetron 2 mg/ML SDV 2 mL 4 MG IVP (22:44)
[2024-09-10 22:46] LABS: NT Pro B Type Natriuretic Pept 140 pg/mL (0-125); Procalcitonin 0.24 ng/mL (0-0.5)
[2024-09-10 22:50] VITALS: BP 143/82; PULSE 102; RESP 28; O2SAT 94
[2024-09-10 22:56] LABS: Lipase 37 U/L (13-60); Magnesium 1.8 mg/dL (1.7-2.3); Phosphorus 2.5 mg/dL (2.5-4.5)
[2024-09-10 23:05] VITALS: BP 144/83; PULSE 102; RESP 26; O2SAT 95
[2024-09-10 23:35] VITALS: BP 154/95; O2SAT 94
[2024-09-11] VITALS (19 sets, daily range): BP systolic 120–157; BP diastolic 70–88; PULSE 94–108; RESP 12–22; TEMP 36.5–36.8; O2SAT 91–95
[2024-09-11 00:03] LABS: Reflex Lactate Order REFLEX LACTIC ORDERD
[2024-09-11 01:16] LABS: Bilirubin Urine 1+ (Negative); Blood Urine Negative (Negative); Glucose Urine UA Negative (Normal); Ketones Urine Negative (Negative); Leukocyte Esterase Urine Negative (Negative); Nitrate Urine Negative (Negative); Protein Urine Trace (Negative); Urine Appearance Clear (CLEAR); Urine Color Dark Yellow (Yellow)
[2024-09-11 01:21] LABS: Add Urine Microscopic? YES; Bacteria Urine None Seen /hpf; Hyaline Casts Urine 0-4 /lpf; RBC Urine 0-2 /hpf (0-2); Squamous Epithelial Cell Urine 0-5 /hpf (0-5); WBC Urine 0-5 /hpf (0-5)
[2024-09-11 01:34] LABS: Specific Gravity, Urine 1.094 (1.005-1.030)
--- NOTE | 2024-09-11 02:04 | P.HP_ITS ---
Providers/Chief Complaint 2 Primary Care Provider: Karlos Gallardo MD Chief Complaint: SOB, swelled up all over and hurting History of Present Illness Ned Sherwood is a 68 year old male with a past medical history significant for alcohol use disorder with abuse, alcoholic liver cirrhosis, GERD, hypertension, gynecomastia, tobacco use disorder, COPD, hypertension, and multiple other comorbidities who presents to the emergency department with abdominal distention and pain x 1 week. Patient reports symptoms progressively worsening. Movement and exertion worsens his abdomen. Denies alleviating factors. He states that he has done 2 courses of antibiotics for pneumonia through his primary care office. The first 1 was amoxicillin followed by doxycycline. He thinks abdominal swelling is related to the antibiotics. He has a known history of alcoholic liver cirrhosis. He reports he no longer drinks alcohol. He is not on any diuretics. He notes copious salt intake. Reports chronic lower extremity edema, worse in the past 1 to 2 weeks. He denies prior known ascites or need for paracentesis. In the emergency department, patient was found to have distended abdomen. Chest CT, abdomen and pelvis showed cirrhotic morphology of liver with stigmata of portal venous hypertension, numerous hypodense lesions in the left hepatic lobe, and right hemicolonic wall thickening. Review of Systems 2 Narrative: A complete review of systems was obtained and is negative except as stated in HPI. Medications/Allergies Home Medications Medication Instructions Recorded Confirmed Last Taken Type albuterol sulfate 90 mcg/actuation 2 puff inhalation Q4H PRN 02/02/24 07/27/24 Unknown Rx aerosol inhaler shortness of breath or wheezing #8.5 grams amlodipine 5 mg tablet 5 mg PO DAILY blood pressure #30 02/02/24 07/27/24 Unknown Rx tabs lisinopril 20 mg tablet 20 mg PO QAM blood pressure #30 02/02/24 07/27/24 Unknown Rx tabs pantoprazole 40 mg tablet,delayed See Rx Instructions .Route 02/02/24 07/27/24 Unknown Rx release .COMPLEX #30 tabs triamcinolone acetonide 0.5 % 1 applic topical BID #15 grams 02/02/24 07/27/24 Unknown Rx topical cream tadalafil 5 mg tablet (Cialis) 2.5 mg (1/2 x 5 mg) PO DAILY PRN 09/03/24 10/04/24 Unknown Rx sexual activity #30 tabs amoxicillin 500 mg capsule 500 mg PO Q12H 09/06/24 09/06/24 Unknown History Allergies Allergy/AdvReac Type Severity Reaction Status Date / Time aspirin Allergy Intermediate Unknown Verified 09/06/24 09:57 PFSH Acute 2 PFSH: Medical History Alcoholic cirrhosis Gynecomastia, male GERD (gastroesophageal reflux disease) Sexual dysfunction Alcohol dependence Psoriasis Smoker unmotivated to quit Hypertension COPD (chronic obstructive pulmonary disease) Surgical History History of repair of laceration Family History Mother Cancer stomach Denies family history of Anesthesia complication Bleeding disorder Social History Smoking and tobacco/nicotine status: unknown if used tobacco/nicotine Alcohol intake: current Alcohol intake frequency: few times a week Substance/Drug Use: never Lives independently: Yes Marital status: Single Number of children: 3 Number of grandchildren: 3 service: No Current occupational status: retired and disabled Vitals/I&O/Wt Last Vital Signs Temp 98.1 F 09/10/24 12:48 Pulse 102 H 09/10/24 23:05 Resp 26 H 09/10/24 23:05 BP 145/85 09/11/24 01:35 Pulse Ox 93 09/11/24 01:35 O2 Del Method Room Air 09/10/24 12:48 Weight last 48 hrs Weight 77.111 kg Physical Exam 2 Narrative: General: Patient is awake and alert. Head: Normocephalic. Atraumatic. EOM intact. Neck: No JVD. Cardiovascular: RRR. No gallops. No murmurs. 2-3+ pitting edema bilateral lower extremities. Lungs: Clear to auscultation, no use of accessory muscles, no crackles or wheezes. Skin: No jaundice. No rashes. Abdomen: Abdomen is distended with positive fluid wave. Slightly tender to palpation all 4 quadrants. Genito Urinary: Genital exam not performed since complaints not related. Rectal: Rectal exam not performed since no symptoms indicated blood loss. Extremities: No cyanosis or clubbing. Musculoskeletal: No swollen or erythematous joints. Neurological: Moves all 4 extremities. No myoclonus. Data 09/10/24 14:19 09/10/24 14:16 A&P Assessment and plan (1) Decompensated hepatic cirrhosis: Decompensated alcoholic liver cirrhosis with new onset symptomatic ascites Radiology consult for ultrasound-guided paracentesis Paracentesis labs ordered Check INR Supportive care (2) Liver lesion: Numerous lesions noted in liver Recommend outpatient MRI as suggested in CT read Check AFP (3) Alcohol dependence: Patient denies recent alcohol use AST to ALT ratio consistent with alcoholism Monitor for for alcohol withdrawal (4) Peripheral edema: Plan for paracentesis today Patient would benefit from loop diuretic at discharge He has a history of gynecomastia, could consider eplerenone (5) Hyperbilirubinemia: Hyperbilirubinemia, transaminitis, elevated lactate Avoid hepatotoxins Plan DVT prophylaxis: Low risk. SCDs ordered. Attestations 2 Medical Necessity Statement*: Patient presents with abdominal distention and pain, found to have new onset symptomatic ascites in the setting of a known hepatic cirrhosis secondary to alcoholism with labs consistent with sequela of alcoholic liver cirrhosis with expected hospitalization not to cross 2 midnights for paracentesis, consideration of diuresis, and supportive care. Coding Level of Care Code Acute Code for Chg Fwd Diagnoses Decompensated hepatic cirrhosis K72.90; K74.60 Liver lesion K76.9 Alcohol dependence F10.20 Peripheral edema R60.0 Hyperbilirubinemia E80.6
--- NOTE | 2024-09-11 02:13 | US_ITS ---
WS: [id number] Abdominal ultrasound, limited. History: Evaluate for ascites. Comparison: None. All 4 quadrants are imaged by ultrasound to evaluate for ascites. Small amount of peritoneal fluid is present in all 4 quadrants. US/US abdomen lmt fluid [id number] IMPRESSION: Small amount of ascites.
[2024-09-11 03:38] LABS: Tumor Marker Alpha Fetoprotein 4.6 ng/mL (0-8.3)
[2024-09-11] MEDS: morphine 4 mg/mL SDV 1 mL 2 MG IVP ×4 (03:38→22:12)
[2024-09-11] MEDS: ondansetron 2 mg/ML SDV 2 mL 4 MG IVP (08:36)
[2024-09-11] MEDS: pantoprazole DR 40 mg Tablet PO (08:36)
--- NOTE | 2024-09-11 09:22 | PC.PHAR ---
I called and Verified medication with the three Pharmacies he has went to in the last month . He has taken multiple antibiotics in the last month .
[2024-09-11 11:02] LABS: Alcohol Level < 10 mg/dL (0-10); C Reactive Protein 66.2 mg/L (0.0-4.9)
[2024-09-11 11:09] LABS: Procalcitonin 0.21 ng/mL (0-0.5)
[2024-09-11 11:11] LABS: HIV 1 & 2 Antibody Non-Reactive (Non-Reactiv); HIV 1 & 2 Antigen Non-Reactive (Non-Reactiv)
[2024-09-11 11:18] LABS: Hepatitis A Antibody IgM Non-Reactive (Nonreactive); Hepatitis B Core IgM Non-Reactive (Nonreactive); Hepatitis B Surface Antigen Non-Reactive (Nonreactive)
[2024-09-11] MEDS: albuterol 2.5 mg/3 mL Neb INHALATION (11:41)
[2024-09-11] MEDS: piperacillin-tazobactam 3.375 GM in sodium chloride 0.9% (plus) 50 ML IV ×2 (11:46→19:19)
[2024-09-11 11:50] LABS: Hepatitis C Virus Antibody Reactive (Nonreactive)
[2024-09-11 12:28] LABS: Basophils % 0.2 %; Eosinophils # 0.2 10^3/uL (0.0-0.8); Eosinophils % 1.7 %; Hematocrit 39.7 % (37-53); Lymphocytes # 1.2 10^3/uL (0.8-4.8); Lymphocytes % 13.9 %; Mean Platelet Volume 10.5 fL (7.4-10.4); Monocytes # 1.2 10^3/uL (0.2-0.9); Monocytes % 13.6 %; Neutrophils # 6.19 10^3/uL (1.8-7.7); Neutrophils % 70.1 %; Nucleated Red Blood Cells % 0 %; Platelet Count 155 10^3/cmm (157-399); Red Blood Count 3.97 10^6/uL (3.85-5.65); Red Cell Distribution Width 14.6 % (12.1-15.1); White Blood Count 8.83 10^3/uL (3.29-11.43)
[2024-09-11 12:30] LABS: Erythrocyte Sedimentation Rate 43 mm/hr (0-10)
[2024-09-11 12:46] LABS: Alanine Aminotransferase 52 U/L (0-41); Albumin Level 2.9 g/dL (3.5-5.2); Alkaline Phosphatase 167 U/L (40-130); Anion Gap 10.9 (5-19); Aspartate Amino Transferase 99 U/L (0-40); Blood Urea Nitrogen 15 mg/dL (8-23); Calcium 8.6 mg/dL (8.5-10.5); Carbon Dioxide 30 mmol/L (22-29); Chloride 103 mmol/L (98-107); Creatinine Clr Calc Pharmacy 94.2565; Globulin 3.3 g/dL (1.3-4.6); Glomerular Filtration Rate 112.1 mL/min (90-130); Glucose 129 mg/dL (65-115); Osmolality Calculated 293 mOsm/kg (285-295); Potassium 3.9 mmol/L (3.5-5.1); Sodium 140 mmol/L (136-145); Total Bilirubin 1.9 mg/dL (0.15-1.2); Total Protein 6.2 g/dL (6.6-8.7)
[2024-09-11 12:52] LABS: Ammonia 32 umol/L (16-60)
--- NOTE | 2024-09-11 13:36 | P.PN_ITS ---
Subjective 2 Subjective: Patient was seen this morning, he is currently lying on his side, complains of abdominal pain, no fevers, no chills, no lightheadedness, no dizziness, reports his last alcohol drink was 6 days ago, denies bloody or black stools, Vitals/I&O/Wt Last Vital Signs Temp 98.2 F 09/11/24 12:00 Pulse 106 H 09/11/24 12:00 Resp 19 H 09/11/24 12:00 BP 123/71 09/11/24 12:00 Pulse Ox 95 09/11/24 12:00 O2 Del Method Room Air 09/11/24 12:00 09/10/24 09/11/24 09/11/24 22:59 06:59 14:59 Intake Total 360 / 360 Output Total 100 / 100 Balance -100 / -100 360 / 360 Weight last 48 hrs Weight 82.463 kg Weight 82.129 kg Weight 77.111 kg Physical Exam 2 Const: COMMON NORMALS: no acute distress and patient oriented x3 Resp: COMMON NORMALS: normal respiratory effort, No retractions, No use of accessory muscles and clear to auscultation bilaterally AUSCULTATION: clear to auscultation bilaterally Cardio: COMMON NORMALS: regular rate, regular rhythm, S1 normal heart sound present and S2 normal heart sound present RATE: regular rate RHYTHM: r egular rhythm HEART SOUNDS: S1 normal heart sound present and S2 normal heart sound present GI: INSPECTION: Yes normal to inspection AUSCULTATION: Yes normoactive bowel sounds OTHER: Diffuse pain upon palpation, no guarding, no rebound, no rigidity Extremity: COMMON NORMALS: no pedal edema Neuro: COMMON NORMALS: patient oriented x3 Psych: COMMON NORMALS: mental status grossly normal Data 09/11/24 12:16 09/11/24 12:16 A&P Assessment and plan (1) Decompensated hepatic cirrhosis: Decompensated alcoholic liver cirrhosis with new onset symptomatic ascites Radiology consult for ultrasound-guided paracentesis, Paracentesis labs ordered Check INR Supportive care Start Zosyn for concerns for possible SBP (2) Liver lesion: Numerous lesions noted in liver Recommend outpatient MRI as suggested in CT read Check AFP (3) Alcohol dependence: Patient denies recent alcohol use AST to ALT ratio consistent with alcoholism Monitor for for alcohol withdrawal (4) Peripheral edema: Plan for paracentesis today Patient would benefit from loop diuretic at discharge (5) Hyperbilirubinemia: Hyperbilirubinemia, transaminitis, elevated lactate Avoid hepatotoxins Plan DVT prophylaxis: SCDs orders, history of liver cirrhosis, hold off on anticoagulant therapy Attestations 2 Medical Necessity Statement*: Requires hospitalization for decompensated liver failure, concerns for respond to Annabel peritonitis Diagnoses Decompensated hepatic cirrhosis K72.90; K74.60 Liver lesion K76.9 Alcohol dependence F10.20 Peripheral edema R60.0 Hyperbilirubinemia E80.6
[2024-09-12] VITALS (12 sets, daily range): BP systolic 104–149; BP diastolic 50–88; PULSE 92–111; RESP 16–24; TEMP 36.2–37.1; O2SAT 91–94
[2024-09-12] MEDS: morphine 4 mg/mL SDV 1 mL 2 MG IVP ×4 (02:27→20:09)
[2024-09-12] MEDS: piperacillin-tazobactam 3.375 GM in sodium chloride 0.9% (plus) 50 ML IV ×3 (04:31→19:28)
[2024-09-12] MEDS: folic acid 1 mg Tablet PO (08:09)
[2024-09-12] MEDS: pantoprazole DR 40 mg Tablet PO (08:09)
[2024-09-12] MEDS: thiamine 100 mg Tablet PO (08:09)
[2024-09-12] MEDS: multivitamin therapeutic Tablet 1 TAB PO (08:09)
--- NOTE | 2024-09-12 09:52 | PC.CHAP ---
Pastoral Care Encounter/Spiritual Assessment Type of Contact [] Declined propeller tester visit [] Patient/Family/Request visit [] Outpatient visit [] Follow-up visit [] Physician referral [] Code/Alert [] Routine visit [] Staff referral [] Actively dying [x] Patient sleeping [] Family support [] [] Out of room [] Palliative care [] [] Receiving care in room [] Pre-surgical visit [] Trauma [] Long length of stay [] ICU visit [] Other: Relational/Emotional Strength [] Patient feels connected with others/family/visitors/staff [] Distress [] Loneliness/isolation [] Abandonment Spirituality of Patient [] Person of Natasha [] Attends Restorationist of their Natasha [] Believes in Prayer [] Reads Bible or Anglican materials [] There are Spiritual issues to be addressed Barrel Coater Interventions [] Prayer [] Active listening [] Non-anxious presence [] Spiritual/emotional support [] Crisis/trauma care [] Spiritual counseling [] Bereavement support [] Provided bereavement packet [] Provided Bible/devotional materials [] Provided toy/stuffed animal, coloring book to patient or family member [] Provided Communion [] Anointing/[place] [] Salvation [] Completed spiritual assessment [] Other: Impact on Illness or Injury [] Angry [] Fearful [] Anxious [] Often cries [] Exhaustion [] Unable to work [] Unable to attend muslim [] Unable to walk/stand [] Unable to read [] Unable to drive [] Unable to eat/drink [] Unable to sleep [] Unable to be with family [] Patient intubated [] Other: Summary Time spent with patient
--- NOTE | 2024-09-12 10:11 | US_ITS ---
WS: [id number] ULTRASOUND-GUIDED THERAPEUTIC PARACENTESIS Procedure, risks, and complications have been explained to the patient. Consent is obtained. Utilizing aseptic technique and 1% buffered lidocaine, a small dermatome was made through which a 5 F rench Yueh catheter was inserted. Approximately 2350 ml of clear peritoneal fluid was obtained witho ut difficulty. No complications encountered. US/US paracentesis abd w [id number] IMPRESSION: Uncomplicated paracentesis yielding 2350 ml of peritoneal fluid.
--- NOTE | 2024-09-12 10:29 | XRR_ITS ---
PROCEDURE INFORMATION: Exam: XR Abdomen Exam date and time: 09/12/2024 11:01 AM Age: 68 years old Clinical indication: Bloating; Additional info: Bowel distention TECHNIQUE: Imaging protocol: Radiologic exam of the abdomen. Views: Frontal supine view of the abdomen. 1 View. COMPARISON: CT chest abdpel w/*[id number] 09/10/2024 10:21 PM FINDINGS: Gastrointestinal tract: Gassy colon with a moderate to large amount of fecal material in the ascending colon. No bowel dilation. Bones/joints: Unremarkable. XR/XR KUB portable [id number] IMPRESSION: No acute findings.
--- NOTE | 2024-09-12 11:31 | PM.TDS ---
Transfer Summary Providers Date of Admission: 09/11/24 02:01 Date of Discharge/Transfer: 09/12/24 Attending Provider at Admission: Gary Ahuja MD Attending Provider at Transfer: Elmer Maradiaga MD Primary Care Provider: Karlos Gallardo MD Transfer Plans: Anticipated date of transfer: 09/12/24. Diagnoses at Discharge Discharge Diagnosis (1) Decompensated hepatic cirrhosis: Status: Acute (2) Liver lesion: Status: Acute (3) Alcohol dependence: Status: Acute (4) Peripheral edema: Status: Acute (5) Hyperbilirubinemia: Status: Acute Reason for Visit Reason for Visit SOB, swelled up all over and hurting Hospital Course Hospital Course This is a 68-year-old male with a past medical history of alcoholic liver cirrhosis, alcohol abuse, GERD, hypertension, gynecomastia, COPD, CHF, hypertension, who presents to [facility] due to abdominal distention and pain for the last week Patient was admitted to [facility] for abdominal pain abdominal distention CT abdomen pelvis - CT/CT chest abdpel w/*[id number] IMPRESSION: 1. No definite acute intrathoracic process. 2. Incidental/chronic findings as above. IMPRESSION: 1. Cirrhotic morphology of the liver and stigmata of portal venous hypertension. There has been interval development of numerous hypodense lesions in the left hepatic lobe with the dominant lesion measuring up to 1.9 cm. These may relate to regenerative nodules and/or hepatocellular carcinoma. These findings need to be further interrogated with follow up MRI abdomen with and without contrast utilizing liver mass protocol. 2. Right hemicolon wall thickening may be related to portal venous colopathy. 3 additional incidental/chronic findings as above. Ultrasound abdomen US/US abdomen lmt fluid [id number] IMPRESSION: Small amount of ascites. - -No signet leukocytosis, CRP was 66, ammonia levels within normal limits -Given liver lesion, AFP ordered within normal limits we will have to follow-up with GI as outpatient -Bilirubin 2.7, AST 103, ALT 54, alk phos 163 -Patient was admitted to [facility] for concerns for decompensated liver failure, with ascites, concerns for spontaneous bacterial peritonitis -Patient did not have enough ascites for paracentesis -He was managed with IV antibiotics, IV Zosyn -The morning of 09/12/2024 -Patient continued to have complaints of pain, KUB had no acute findings -Continue to have complaint of abdominal pain abdominal distention, -No diarrhea, reports constipation, started on a bowel regimen -On examination abdomen was distended, no guarding, no rebound, rigidity, has good bowel sounds -Discussed repeating paracentesis and will try for a diagnostic paracentesis -He was afebrile overnight, WBC 8.83, INR 1.2, ESR 43, bilirubin 1.9, AST 99, ALT 52, alk phos 167 ? Possible fluid overload contributing?, Given 1 dose IV Lasix -His hepatitis C antibody was positive, his PCR is pending -Patient requested to be transferred to [facility], accepted in transfer to [facility] as per patient request Physical Exam Const: COMMON NORMALS: no acute distress and patient oriented x3 Eye: COMMON NORMALS: Equal, round and reactive pupils present PUPIL: Yes Equal, round and reactive pupils present Resp: COMMON NORMALS: normal respiratory effort, No retractions, No use of accessory muscles and clear to auscultation bilaterally AUSCULTATION: clear to auscultation bilaterally Cardio: COMMON NORMALS: regular rate, regular rhythm, S1 normal heart sound present and S2 normal heart sound present RATE: regular rate RHYTHM: regular rhythm HEART SOUNDS: S1 normal heart sound present and S2 normal heart sound present GI: OTHER: Abdomen is soft, distended, good bowel sounds, no guarding, no rebound, rigidity, no overlying skin changes Extremity: COMMON NORMALS: no pedal edema Neuro: COMMON NORMALS: patient oriented x3 Psych: COMMON NORMALS: mental status grossly normal TS Data Studies Completed and Pending Pending at discharge Category Date Time Status XR KUB portable [id number] Routine Exams 09/12/24 10:29 Taken Amylase, Peritoneal Fluid Routine Lab 09/11/24 03:10 Ordered Amylase, Pleural Fluid Routine Lab 09/11/24 03:10 Ordered Albumin Body Fluid Routine Lab 09/11/24 03:10 Ordered Anaerobic Culture Routine Lab 09/11/24 03:10 Ordered Body Fluid Analysis Routine Lab 09/11/24 03:10 Ordered Body Fluid Culture & GS Routine Lab 09/11/24 03:10 Ordered Body Fluid Specific [place] Routine Lab 09/11/24 03:10 Ordered C.Diff PCR (Lab) Routine Lab 09/12/24 10:46 Ordered Cholesterol Body Fluid Routine Lab 09/11/24 03:10 Ordered Cyto Order Verification Routine Lab 09/11/24 03:10 Ordered Fluid Alkaline Phos. Routine Lab 09/11/24 03:10 Ordered Glucose Body Fluid Routine Lab 09/11/24 03:10 Ordered Hepatitis C RNA Viral Load Qnt Routine Lab 09/11/24 11:51 Received Immunochemical Fecal OCB Routine Lab 09/12/24 10:46 Ordered LDH Body Fluid Routine Lab 09/11/24 03:10 Ordered Lactoferrin Routine Lab 09/12/24 10:46 Ordered OVA and Parasites, Conc and PE Routine Lab 09/12/24 10:46 Ordered Salmonella / Shigella / Campy Routine Lab 09/12/24 10:46 Ordered Total Protein Body Fluid Routine Lab 09/11/24 03:10 Ordered Triglycerides Body Fluid Routine Lab 09/11/24 03:10 Ordered Uric Acid Body Fluid Routine Lab 09/11/24 03:10 Ordered pH Body Fluid Routine Lab 09/11/24 03:10 Ordered [place] w [id number] Routine Ultrasound 09/12/24 10:11 Ordered Completed Studies During Hospitalization Category Date Time Status CT chest abdomen pelvis [CT chest abdpel w/*[id number] Cat Scan 09/10/24 21:57 Completed ] Stat XR chest 1V portable [id number] Stat Exams 09/10/24 13:11 Completed US abdomen lmt fluid [id number] Stat Ultrasound 09/11/24 02:13 Completed Laboratory Last Values WBC 8.83 10^3/uL (3.29-11.43) 09/11/24 12:16 RBC 3.97 10^6/uL (3.85-5.65) 09/11/24 12:16 Hgb 12.70 g/dL (11.27-16.99) 09/11/24 12:16 Hct 39.7 % (37-53) 09/11/24 12:16 MCV 100.0 fl (82-101) 09/11/24 12:16 MCH 32.0 pg (27-33) 09/11/24 12:16 MCHC 32.0 g/dL (30-55) 09/11/24 12:16 RDW 14.6 % (12.1-15.1) 09/11/24 12:16 Plt Count 155 10^3/cmm (157-399) L 09/11/24 12:16 MPV 10.5 fL (7.4-10.4) H 09/11/24 12:16 Neut % (Auto) 70.1 % 09/11/24 12:16 Lymph % (Auto) 13.9 % 09/11/24 12:16 [place] % (Auto) 13.6 % 09/11/24 12:16 Eos % (Auto) 1.7 % 09/11/24 12:16 Baso % (Auto) 0.2 % 09/11/24 12:16 Neut # (Auto) 6.19 10^3/uL (1.8-7.7) 09/11/24 12:16 Lymph # (Auto) 1.2 10^3/uL (0.8-4.8) 09/11/24 12:16 [place] # (Auto) 1.2 10^3/uL (0.2-0.9) H 09/11/24 12:16 Eos # (Auto) 0.2 10^3/uL (0.0-0.8) 09/11/24 12:16 Baso # (Auto) 0.0 10^3/uL (0.0-0.1) 09/11/24 12:16 Nucleated RBC % (auto) 0 % 09/11/24 12:16 Nucleated RBCs # 0.0 /100WBC 09/11/24 12:16 ESR 43 mm/hr (0-10) H 09/11/24 12:16 PT 15.60 SECONDS (12.1-14.9) H 09/11/24 02:01 INR 1.20 (0.8-1.2) 09/11/24 02:01 Sodium 140 mmol/L (136-145) 09/11/24 12:16 Potassium 3.9 mmol/L (3.5-5.1) 09/11/24 12:16 Chloride 103 mmol/L (98-107) 09/11/24 12:16 Carbon Dioxide 30 mmol/L (22-29) H 09/11/24 12:16 Anion Gap 10.9 (5-19) 09/11/24 12:16 BUN 15 mg/dL (8-23) 09/11/24 12:16 Creatinine 0.7 mg/dL (0.7-1.2) 09/11/24 12:16 GFR Calculation 112.1 mL/min (90-130) 09/11/24 12:16 Glucose 129 mg/dL (65-115) H 09/11/24 12:16 Calculated Osmolality 293 mOsm/kg (285-295) 09/11/24 12:16 Lactic Acid 2.4 mmol/L (0.5-2.2) H 09/10/24 22:06 Lactic Acid (Sepsis) 1.9 mmol/L (0.5-2.2) 09/10/24 16:52 Calcium 8.6 mg/dL (8.5-10.5) 09/11/24 12:16 Phosphorus 2.5 mg/dL (2.5-4.5) 09/10/24 22:06 Magnesium 1.8 mg/dL (1.7-2.3) 09/10/24 22:06 Total Bilirubin 1.9 mg/dL (0.15-1.2) H 09/11/24 12:16 AST 99 U/L (0-40) H 09/11/24 12:16 ALT 52 U/L (0-41) H 09/11/24 12:16 Alkaline Phosphatase 167 U/L (40-130) H 09/11/24 12:16 Ammonia 32 umol/L (16-60) 09/11/24 12:16 Troponin T Baseline 10 ng/L (0-15) 09/10/24 14:19 Troponin T 120 Minute 9.57 ng/L (0-15) 09/10/24 15:57 Delta Troponin T -0.43 ABS# (0-10) L 09/10/24 15:57 Troponin T Hi Sens 6Hr 11.00 ng/L (0-15) 09/10/24 20:28 Troponin T Hi Sens 6Hr Delta 1.00 ng/L (0-12) 09/10/24 20:28 C-Reactive Protein 66.2 mg/L (0.0-4.9) H 09/11/24 10:27 NT-Pro-B Natriuret Pep 140 pg/mL (0-125) H 09/10/24 22:06 Total Protein 6.2 g/dL (6.6-8.7) L 09/11/24 12:16 Albumin 2.9 g/dL (3.5-5.2) L 09/11/24 12:16 Globulin 3.3 g/dL (1.3-4.6) 09/11/24 12:16 Lipase 37 U/L (13-60) 09/10/24 22:06 Tumor Marker AFP 4.6 ng/mL (0-8.3) 09/11/24 02:01 Procalcitonin 0.21 ng/mL (0-0.5) 09/11/24 10:27 Urine Color Dark yellow (Yellow) A 09/11/24 00:30 Urine Appearance Clear (CLEAR) 09/11/24 00:30 Urine pH 5.0 (5-7) 09/11/24 00:30 Ur Specific [place] 1.094 (1.005-1.030) H 09/11/24 00:30 Urine Protein Trace (Negative) A 09/11/24 00:30 Urine Glucose (UA) Negative (Normal) 09/11/24 00:30 Urine Ketones Negative (Negative) 09/11/24 00:30 Urine Blood Negative (Negative) 09/11/24 00:30 Urine Nitrate Negative (Negative) 09/11/24 00:30 Urine Bilirubin 1+ (Negative) H 09/11/24 00:30 Urine Urobilinogen 2.0 mg/dL (Negative) H 09/11/24 00:30 Ur Leukocyte Esterase Negative (Negative) 09/11/24 00:30 Urine RBC 0-2 /hpf (0-2) 09/11/24 00:30 Urine WBC 0-5 /hpf (0-5) 09/11/24 00:30 Ur Squamous Epith Cells 0-5 /hpf (0-5) 09/11/24 00:30 Amorphous Sediment Not Reportable 09/11/24 00:30 Urine Bacteria None seen /hpf (NONE) 09/11/24 00:30 Hyaline Casts 0-4 /lpf H 09/11/24 00:30 Ethyl Alcohol < 10 mg/dL (0-10) 09/11/24 10:27 Hepatitis A IgM Ab Non-reactive (Nonreactive) 09/11/24 10:27 Hep Bs Antigen Non-reactive (Nonreactive) 09/11/24 10:27 Hep B Core IgM Ab Non-reactive (Nonreactive) 09/11/24 10:27 Hepatitis C Antibody Reactive (Nonreactive) H 09/11/24 10:27 HIV 1&2 Ab & HIV 1 Ag Non-reactive (Non-Reactiv) 09/11/24 10:27 HIV 1&2 Antibody Non-reactive (Non-Reactiv) 09/11/24 10:27 Radiology Impressions Chest X-Ray 09/10/24 13:11 IMPRESSION: 1. Negative chest. Chest/Abdomen/Pelvis CT 09/10/24 21:57 IMPRESSION: 1. No definite acute intrathoracic process. 2. Incidental/chronic findings as above. IMPRESSION: 1. Cirrhotic morphology of the liver and stigmata of portal venous hypertension. There has been interval development of numerous hypodense lesions in the left hepatic lobe with the dominant lesion measuring up to 1.9 cm. These may relate to regenerative nodules and/or hepatocellular carcinoma. These findings need to be further interrogated with follow up MRI abdomen with and without contrast utilizing liver mass protocol. 2. Right hemicolon wall thickening may be related to portal venous colopathy. 3 additional incidental/chronic findings as above. Abdomen Ultrasound 09/11/24 02:13 IMPRESSION: Small amount of ascites. Recent Clincial Data Last Vital Signs Temp 98.1 F 09/12/24 08:00 Pulse 98 09/12/24 08:40 Resp 18 09/12/24 08:40 BP 149/83 09/12/24 08:00 Pulse Ox 91 09/12/24 08:40 O2 Del Method Room Air 09/12/24 08:40 Vital Signs Temp Pulse Resp BP Pulse Ox O2 Del Method 09/12/24 08:40 98 18 91 Room Air 09/12/24 08:09 16 94 09/12/24 08:00 98.1 F 92 18 149/83 93 Room Air 09/12/24 04:00 98.4 F 92 16 132/70 94 Room Air 09/12/24 02:27 16 09/12/24 02:26 147/88 09/12/24 00:00 97.1 F L 98 16 112/67 91 Room Air Intake & Output/Weight 09/10/24 09/11/24 09/12/24 09/13/24 06:59 06:59 06:59 06:59 Intake Total 700 / 700 290 / 290 Output Total 100 / 100 Balance -100 / -100 700 / 700 290 / 290 Weight 82.463 kg 81.737 kg Vitals Last Vital Signs Temp 98.1 F 09/12/24 08:00 Pulse 98 09/12/24 08:40 Resp 18 09/12/24 08:40 BP 149/83 09/12/24 08:00 Pulse Ox 91 09/12/24 08:40 O2 Del Method Room Air 09/12/24 08:40 TS Medications Medications Albuterol Sulfate (Albuterol 2.5 Mg/3 Ml Neb) 2.5 mg INHALATION Q4H.RESPIRATORY PRN PRN Reason: Shortness of breath Last Admin: 09/11/24 11:41 Dose: 2.5 mg Folic Acid (Folic Acid 1 Mg Tablet) 1 mg PO DAILY [facility] Last Admin: 09/12/24 08:09 Dose: 1 mg Hydralazine HCl (Hydralazine 20 Mg/Ml Inj 1 Ml) 10 mg IVP Q4H PRN PRN Reason: SBP>180mmHg or DBP>110mmHG Piperacillin Sod/Tazobactam (Sod 3.375 gm/ Sodium Chloride) 50 mls @ 12.5 mls/hr IV Q8H [facility] Last Infusion: 09/12/24 08:37 Dose: Infused Lorazepam (Lorazepam 2 Mg Tablet) 2 mg PO PROTOCOL PRN; Protocol PRN Reason: WITHDRAWAL Lorazepam (Lorazepam 2 Mg/Ml Inj 1 Ml) 2 mg IM PROTOCOL PRN; Protocol PRN Reason: ALCOHOL WITHDRAWAL Morphine Sulfate (Morphine 4 Mg/Ml Sdv 1 Ml) 2 mg IVP Q4H PRN PRN Reason: SEVERE PAIN Last Admin: 09/12/24 08:09 Dose: 2 mg Multivitamins Therapeutic (Multivitamin Therapeutic Tablet) 1 tab PO DAILY [facility] Last Admin: 09/12/24 08:09 Dose: 1 tab Ondansetron HCl (Ondansetron 2 Mg/Ml Sdv 2 Ml) 4 mg IVP Q8H PRN PRN Reason: vomiting, or N/V if npo Last Admin: 09/11/24 08:36 Dose: 4 mg Ondansetron HCl (Ondansetron 4 Mg Tablet) 4 mg PO Q8H PRN PRN Reason: NAUSEA Pantoprazole Sodium (Pantoprazole Dr 40 Mg Tablet) 40 mg PO DAILY [facility] Last Admin: 09/12/24 08:09 Dose: 40 mg Polyethylene Glycol (Polyethylene Glycol 3350 Pkt 17 Gm) 17 gm PO DAILY [facility] Thiamine Mononitrate (Thiamine 100 Mg Tablet) 100 mg PO DAILY [facility] Last Admin: 09/12/24 08:09 Dose: 100 mg Discontinued Medications Furosemide (Furosemide 10 Mg/Ml Sdv 4ml) 40 mg IVP ONCE ONE Stop: 09/12/24 10:12 Piperacillin Sod/Tazobactam (Sod / Sodium Chloride) 50 mls @ 0 mls/hr [id number] CONT EDITH; Protocol Iohexol (Iohexol 350 Mg/Ml 500 Ml Btl (Per Ml)) 0 ml IV ONCE ONE Stop: 09/10/24 22:34 Last Admin: 09/10/24 22:33 Dose: 100 ml Lisinopril (Lisinopril 20 Mg Tablet) 20 mg PO QAM [facility] Morphine Sulfate (Morphine 4 Mg/Ml Sdv 1 Ml) 2 mg IVP ONCE ONE Stop: 09/10/24 22:35 Last Admin: 09/10/24 22:44 Dose: 2 mg Ondansetron HCl (Ondansetron 2 Mg/Ml Sdv 2 Ml) 4 mg IVP ONCE ONE Stop: 09/10/24 22:35 Last Admin: 09/10/24 22:44 Dose: 4 mg Thiamine HCl (Thiamine 100 Mg/Ml Sdv) 100 mg IM ONCE ONE Stop: 09/11/24 11:54 Last Admin: 09/11/24 15:20 Dose: 100 mg Allergies aspirin Allergy (Intermediate, Verified 09/06/24 09:57) Unknown Home Medications albuterol sulfate 90 mcg/actuation aerosol inhaler 2 puff inhalation Q4H PRN shortness of breath or wheezing #8.5 grams 02/02/24 [Rx Confirmed 09/11/24] amlodipine 5 mg tablet 5 mg PO DAILY blood pressure #30 tabs 02/02/24 [Rx Confirmed 09/11/24] lisinopril 20 mg tablet 20 mg PO QAM blood pressure #30 tabs 02/02/24 [Rx Confirmed 09/11/24] triamcinolone acetonide 0.5 % topical cream 1 applic topical BID #15 grams 02/02/24 [Rx Confirmed 09/11/24] tadalafil 5 mg tablet (Cialis) 2.5 mg (1/2 x 5 mg) PO DAILY PRN sexual activity #30 tabs 06/26/24 [Rx Confirmed 09/11/24] amoxicillin 875 mg-potassium clavulanate 125 mg tablet 1 tab PO BID 09/11/24 [History Confirmed 09/11/24] azithromycin 500 mg tablet 500 mg PO DAILY 09/11/24 [History Confirmed 09/11/24] doxycycline hyclate 100 mg tablet 100 mg PO BID 09/11/24 [History Confirmed 09/11/24] ondansetron 4 mg disintegrating tablet 4 mg PO Q8H PRN Nausea And Vomiting 09/11/24 [History Confirmed 09/11/24] pantoprazole 40 mg tablet,delayed release 40 mg PO DAILY 09/11/24 [History Confirmed 09/11/24] Discharge Plan Discharge Patient Disposition: Xfer LTC Condition: Stable Prescriptions: No Action triamcinolone acetonide 0.5 % cream 1 applic topical BID Qty: 15 3RF amlodipine 5 mg tablet 5 mg PO DAILY Qty: 30 5RF lisinopril 20 mg tablet 20 mg PO QAM Qty: 30 5RF Rx Instructions: 340 B medications albuterol sulfate 90 mcg/actuation HFA aerosol inhaler 2 puff inhalation Q4H PRN (Reason: shortness of breath or wheezing) Qty: 8.5 3RF Rx Instructions: 340 B medications tadalafil [Cialis] 5 mg tablet 2.5 mg PO DAILY PRN (Reason: sexual activity) Qty: 30 1RF ondansetron 4 mg tablet,disintegrating 4 mg PO Q8H PRN (Reason: Nausea And Vomiting) doxycycline hyclate 100 mg tablet 100 mg PO BID amoxicillin-pot clavulanate 875-125 mg tablet 1 tab PO BID azithromycin 500 mg tablet 500 mg PO DAILY pantoprazole 40 mg tablet,delayed release (DR/EC) 40 mg PO DAILY Discharge Orders: Discharge Order (Routine); Ordered 09/12/24 Ordered By: Elmer Maradiaga Referrals: Karlos Gallardo MD [Primary Care Provider] - Patient Instructions: Opioid Safety Transfer Attestations Time Spent in Transfer Care: greater than 30 min Quality Metrics Clinical Quality Measures [ No reported AMI, CVA or VTE this stay] Coding Level of Care Code Acute Code for g Fwd Diagnoses Decompensated hepatic cirrhosis K72.90; K74.60 Liver lesion K76.9 Alcohol dependence F10.20 Peripheral edema R60.0 Hyperbilirubinemia E80.6
[2024-09-12] MEDS: FUROsemide 10 mg/mL SDV 4mL 40 MG IVP (11:43)
[2024-09-12] MEDS: polyethylene glycol 3350 Pkt 17 gm PO (11:43)
[2024-09-12 15:45] LABS: HEP C RNA Viral Load Quant 1190000 IU/mL (NOT DETECTED); HEP C RNA Viral Load Quant 6.08 Log IU/mL (NOT DETECTED)
[2024-09-12 18:05] LABS: Cyto Order Verification No Order
[2024-09-12 18:06] LABS: Apprearance, Body Fluid CLOUDY; Color, Body Fluid YELLOW; PATH Referral YES
[2024-09-12 18:15] LABS: Basophils % 0.1 %; Eosinophils # 0.1 10^3/uL (0.0-0.8); Eosinophils % 0.9 %; Hematocrit 40.9 % (37-53); Lymphocytes # 0.7 10^3/uL (0.8-4.8); Lymphocytes % 8.9 %; Mean Corpuscular HGB Conc 31.8 g/dL (30-55); Mean Corpuscular Volume 100.7 fl (82-101); Mean Platelet Volume 10.1 fL (7.4-10.4); Monocytes # 0.8 10^3/uL (0.2-0.9); Neutrophils # 5.99 10^3/uL (1.8-7.7); Neutrophils % 79.7 %; Nucleated Red Blood Cells % 0 %; Platelet Count 159 10^3/cmm (157-399); Red Blood Count 4.06 10^6/uL (3.85-5.65); Red Cell Distribution Width 14.5 % (12.1-15.1); White Blood Count 7.52 10^3/uL (3.29-11.43)
[2024-09-12 18:16] LABS: Body Fluid Polynuclear #Cells 0.033; Body Fluid WBC 352 /uL; Monocytes # Body Fluid 0.319
[2024-09-12 18:34] LABS: Lactate (Lactic Acid level) 3.1 mmol/L (0.5-2.2)
[2024-09-12 18:36] LABS: Alanine Aminotransferase 51 U/L (0-41); Alkaline Phosphatase 178 U/L (40-130); Anion Gap 10.6 (5-19); Aspartate Amino Transferase 90 U/L (0-40); Blood Urea Nitrogen 14 mg/dL (8-23); C Reactive Protein 46.4 mg/L (0.0-4.9); Calcium 8.8 mg/dL (8.5-10.5); Carbon Dioxide 33 mmol/L (22-29); Chloride 98 mmol/L (98-107); Creatinine Clr Calc Pharmacy 83.4609; Gamma Glutamyl Transferase 211 U/L (8-61); Globulin 3.5 g/dL (1.3-4.6); Glomerular Filtration Rate 83.9 mL/min (90-130); Glucose 159 mg/dL (65-115); Lipase 50 U/L (13-60); Osmolality Calculated 290 mOsm/kg (285-295); Potassium 3.6 mmol/L (3.5-5.1); Sodium 138 mmol/L (136-145); Total Bilirubin 1.8 mg/dL (0.15-1.2); Total Protein 6.5 g/dL (6.6-8.7)
[2024-09-12 18:43] LABS: Procalcitonin 0.17 ng/mL (0-0.5)
[2024-09-12 19:15] LABS: Fluid Alkaline Phos. 10 IU/L; Total Protein Body Fluid 0.7 g/dL
[2024-09-12 19:16] LABS: Albumin Body Fluid 0.4 g/dL; Cholesterol Body Fluid 10 mg/dL (0-200); LDH Body Fluid 47 U/L; Triglycerides Body Fluid 30 mg/dL (0-150); Uric Acid Body Fluid 3 mg/dL
[2024-09-13] VITALS (12 sets, daily range): BP systolic 110–126; BP diastolic 55–77; PULSE 93–102; RESP 16–24; TEMP 36.6–36.9; O2SAT 90–95
[2024-09-13] MEDS: morphine 4 mg/mL SDV 1 mL 2 MG IVP ×5 (03:30→23:31)
[2024-09-13] MEDS: piperacillin-tazobactam 3.375 GM in sodium chloride 0.9% (plus) 50 ML IV ×3 (03:30→19:19)
[2024-09-13 05:19] LABS: Basophils % 0.1 %; Eosinophils # 0.2 10^3/uL (0.0-0.8); Eosinophils % 2.2 %; Hematocrit 38.4 % (37-53); Lymphocytes # 0.7 10^3/uL (0.8-4.8); Lymphocytes % 9.2 %; Mean Corpuscular HGB Conc 31.8 g/dL (30-55); Mean Corpuscular Volume 100.8 fl (82-101); Mean Platelet Volume 10.9 fL (7.4-10.4); Monocytes # 0.7 10^3/uL (0.2-0.9); Monocytes % 9.8 %; Neutrophils # 5.76 10^3/uL (1.8-7.7); Neutrophils % 78.3 %; Nucleated Red Blood Cells % 0 %; Platelet Count 141 10^3/cmm (157-399); Red Blood Count 3.81 10^6/uL (3.85-5.65); Red Cell Distribution Width 14.4 % (12.1-15.1); White Blood Count 7.36 10^3/uL (3.29-11.43)
[2024-09-13 05:53] LABS: Alanine Aminotransferase 48 U/L (0-41); Albumin Level 2.7 g/dL (3.5-5.2); Alkaline Phosphatase 187 U/L (40-130); Anion Gap 11.8 (5-19); Aspartate Amino Transferase 97 U/L (0-40); Blood Urea Nitrogen 14 mg/dL (8-23); Calcium 8.2 mg/dL (8.5-10.5); Carbon Dioxide 30 mmol/L (22-29); Chloride 100 mmol/L (98-107); Creatinine Clr Calc Pharmacy 93.8935; Globulin 3.3 g/dL (1.3-4.6); Glomerular Filtration Rate 112.1 mL/min (90-130); Glucose 129 mg/dL (65-115); Magnesium 1.7 mg/dL (1.7-2.3); Osmolality Calculated 288 mOsm/kg (285-295); Phosphorus 3.1 mg/dL (2.5-4.5); Potassium 3.8 mmol/L (3.5-5.1); Procalcitonin 0.15 ng/mL (0-0.5); Sodium 138 mmol/L (136-145); Total Bilirubin 1.9 mg/dL (0.15-1.2)
[2024-09-13] MEDS: folic acid 1 mg Tablet PO (08:00)
[2024-09-13] MEDS: pantoprazole DR 40 mg Tablet PO (08:00)
[2024-09-13] MEDS: thiamine 100 mg Tablet PO (08:00)
[2024-09-13] MEDS: polyethylene glycol 3350 Pkt 17 gm PO (08:00)
[2024-09-13] MEDS: multivitamin therapeutic Tablet 1 TAB PO (08:00)
[2024-09-13 10:18] LABS: Lactic Sepsis W/Reflex 1.7 mmol/L (0.5-2.2)
[2024-09-13] MEDS: lactulose oral liq 20 gm/30 mL UDC PO ×2 (12:36→23:31)
--- NOTE | 2024-09-13 17:56 | P.PN_ITS ---
Subjective 2 Subjective: - Patient was seen this morning, he feel s better this morning still having abdominal distention, he has not had a bowel movement, we discussed starting a bowel regimen, I am still waiting on his ascitic fluid studies, to evaluate for spontaneous bacterial peritonitis, cultures are pending, Vitals/I&O/Wt Last Vital Signs Temp 97.9 F 09/13/24 17:55 Pulse 102 H 09/13/24 17:55 Resp 24 H 09/13/24 17:55 BP 121/70 09/13/24 17:55 Pulse Ox 95 09/13/24 17:55 O2 Del Method Room Air 09/13/24 17:55 09/13/24 09/13/24 09/13/24 06:59 14:59 22:59 Intake Total 50 / 1230 1010 / 1010 530 / 1540 Output Total 200 / 3000 Balance -150 / -1770 1010 / 1010 530 / 1540 Weight last 48 hrs Weight 81.737 kg Weight 81.737 kg Physical Exam 2 Const: COMMON NORMALS: no acute distress and patient oriented x3 Resp: COMMON NORMALS: normal respiratory effort, No retractions, No use of accessory muscles and clear to auscultation bilaterally AUSCULTATION: clear to auscultation bilaterally Cardio: COMMON NORMALS: regular rate, regular rhythm, S1 normal heart sound present and S2 normal heart sound present RATE: regular rate RHYTHM: r egular rhythm HEART SOUNDS: S1 normal heart sound present and S2 normal heart sound present GI: OTHER: Abdomen is soft, distended, good bowel sounds, no guarding, no rebound, no rigidity Extremity: COMMON NORMALS: no pedal edema Neuro: COMMON NORMALS: patient oriented x3 Psych: COMMON NORMALS: mental status grossly normal Data 09/13/24 04:25 09/13/24 04:25 Micro: Microbiology 09/12/24 17:28 Gram Stain - Final Peritoneal Fluid Anaerobic Culture - Preliminary Body Fluid Culture - Preliminary A&P Assessment and plan (1) Decompensated hepatic cirrhosis: Decompensated alcoholic liver cirrhosis with new onset symptomatic ascites Radiology consult for ultrasound-guided paracentesis, status post 2 L removed, 352 WBCs, 9.3% PMN cells, glucose 148, total protein 0.7, albumin 0.4, Gram stain few white blood cells, no organisms, body fluid culture no growth 18 to 24 hours Continue Zosyn for concern for SBP, will discontinue antibiotics once cultures are -48 hours Supportive care (2) Liver lesion: Numerous lesions noted in liver Recommend outpatient MRI as suggested in CT read Check AFP, within normal limits (3) Alcohol dependence: Patient denies recent alcohol use AST to ALT ratio consistent with alcoholism Monitor for for alcohol withdrawal (4) Peripheral edema: Status post Lasix (5) Hyperbilirubinemia: Hyperbilirubinemia, transaminitis, elevated lactate Avoid hepatotoxins Plan DVT prophylaxis: SCDs orders, history of liver cirrhosis, hold off on anticoagulant therapy Attestations 2 Medical Necessity Statement*: Patient requires hospitalization for concerns for spontaneous bacterial peritonitis, abdominal distention Diagnoses Decompensated hepatic cirrhosis K72.90; K74.60 Liver lesion K76.9 Alcohol dependence F10.20 Peripheral edema R60.0 Hyperbilirubinemia E80.6
[2024-09-13 20:19] LABS: C.Diff PCR (Lab) NEGATIVE (Negative)
[2024-09-14] VITALS (8 sets, daily range): BP systolic 110–126; BP diastolic 57–80; PULSE 93–104; RESP 16–19; TEMP 36.5–36.7; O2SAT 92–94
[2024-09-14] MEDS: piperacillin-tazobactam 3.375 GM in sodium chloride 0.9% (plus) 50 ML IV ×2 (03:14→11:12)
[2024-09-14 05:09] LABS: Basophils % 0.2 %; Eosinophils # 0.3 10^3/uL (0.0-0.8); Lymphocytes # 1.1 10^3/uL (0.8-4.8); Lymphocytes % 12.8 %; Mean Corpuscular HGB Conc 31.8 g/dL (30-55); Mean Corpuscular Hemoglobin 32.1 pg (27-33); Mean Platelet Volume 10.5 fL (7.4-10.4); Monocytes # 0.8 10^3/uL (0.2-0.9); Monocytes % 9.2 %; Neutrophils # 6.16 10^3/uL (1.8-7.7); Neutrophils % 74.3 %; Nucleated Red Blood Cells % 0 %; Platelet Count 160 10^3/cmm (157-399); Red Blood Count 3.96 10^6/uL (3.85-5.65); Red Cell Distribution Width 14.3 % (12.1-15.1); White Blood Count 8.29 10^3/uL (3.29-11.43)
[2024-09-14] MEDS: morphine 4 mg/mL SDV 1 mL 2 MG IVP ×2 (05:11→09:17)
[2024-09-14 05:27] LABS: Alanine Aminotransferase 49 U/L (0-41); Albumin Level 2.8 g/dL (3.5-5.2); Alkaline Phosphatase 221 U/L (40-130); Anion Gap 12.5 (5-19); Aspartate Amino Transferase 103 U/L (0-40); Blood Urea Nitrogen 16 mg/dL (8-23); C Reactive Protein 28.6 mg/L (0.0-4.9); Calcium 8.3 mg/dL (8.5-10.5); Carbon Dioxide 28 mmol/L (22-29); Chloride 101 mmol/L (98-107); Creatinine Clr Calc Pharmacy 92.7285; Globulin 3.5 g/dL (1.3-4.6); Glomerular Filtration Rate 96.1 mL/min (90-130); Glucose 108 mg/dL (65-115); Magnesium 1.8 mg/dL (1.7-2.3); Osmolality Calculated 286 mOsm/kg (285-295); Phosphorus 3.3 mg/dL (2.5-4.5); Potassium 4.5 mmol/L (3.5-5.1); Sodium 137 mmol/L (136-145); Total Bilirubin 2.1 mg/dL (0.15-1.2); Total Protein 6.3 g/dL (6.6-8.7)
[2024-09-14 05:36] LABS: Procalcitonin 0.16 ng/mL (0-0.5)
[2024-09-14] MEDS: multivitamin therapeutic Tablet 1 TAB PO (09:10)
[2024-09-14] MEDS: polyethylene glycol 3350 Pkt 17 gm PO (09:10)
[2024-09-14] MEDS: folic acid 1 mg Tablet PO (09:10)
[2024-09-14] MEDS: pantoprazole DR 40 mg Tablet PO (09:10)
[2024-09-14] MEDS: thiamine 100 mg Tablet PO (09:10)
[2024-09-14] MEDS: lactulose oral liq 20 gm/30 mL UDC PO (10:49)
--- NOTE | 2024-09-14 12:12 | PM.DCS ---
Discharge Providers Date of Admission: 09/13/24 17:56 Date of Discharge: September 14, 2024 Attending Provider at Admission: Gary Ahuja MD Attending Provider at Discharge: Elmer Maradiaga MD Primary Care Provider: Kralos Gallardo MD Diagnoses at Discharge Discharge Diagnosis (1) Decompensated hepatic cirrhosis: Status: Acute (2) Liver lesion: Status: Acute (3) Alcohol dependence: Status: Acute (4) Peripheral edema: Status: Acute (5) Hyperbilirubinemia: Status: Acute Reason for Visit Reason for Visit: SOB, swelled up all over and hurting Hospital Course Hospital Course This is a 68-year-old male with a past medical history of alcoholic liver cirrhosis, alcohol abuse, GERD, hypertension, gynecomastia, COPD, CHF, hypertension, who presents to [facility] due to abdominal distention and pain for the last week Patient was admitted to [facility] for abdominal pain abdominal distention CT abdomen pelvis - CT/CT chest abdpel w/*[id number] IMPRESSION: 1. No definite acute intrathoracic process. 2. Incidental/chronic findings as above. IMPRESSION: 1. Cirrhotic morphology of the liver and stigmata of portal venous hypertension. There has been interval development of numerous hypodense lesions in the left hepatic lobe with the dominant lesion measuring up to 1.9 cm. These may relate to regenerative nodules and/or hepatocellular carcinoma. These findings need to be further interrogated with follow up MRI abdomen with and without contrast utilizing liver mass protocol. 2. Right hemicolon wall thickening may be related to portal venous colopathy. 3 additional incidental/chronic findings as above. -Patient was admitted to [facility] for decompensated alcoholic liver cirrhosis with ascites requiring paracentesis, initial concern for spontaneous bacterial peritonitis required IV antibiotics, however cultures so far have been negative, discharged with close follow-up with primary care provider as outpatient For history of alcohol dependence, had extensive discussion with him about alcohol cessation For his liver lesions, follow-up with primary care as outpatient, referral sent to GI in [place], for liver MRI possible biopsy Patient was found to be positive for hepatitis C, discussed with him to follow-up with infectious disease outpatient, for consideration of treatment Physical Exam Const: COMMON NORMALS: no acute distress and patient oriented x3 Resp: COMMON NORMALS: normal respiratory effort, No retractions, No use of accessory muscles and clear to auscultation bilaterally AUSCULTATION: clear to auscultation bilaterally Cardio: COMMON NORMALS: regular rate, regular rhythm, S1 normal heart sound present and S2 normal heart sound present RATE: regular rate RHYTHM: regular rhythm HEART SOUNDS: S1 normal heart sound present and S2 normal heart sound present GI: COMMON NORMALS: Normal to inspection, nondistended, normoactive bowel sounds present and non-tender Extremity: COMMON NORMALS: no pedal edema Neuro: COMMON NORMALS: patient oriented x3 Psych: COMMON NORMALS: mental status grossly normal Discharge Data Studies Completed and Pending Completed Studies During Hospitalization Category Date Time Status CT chest abdomen pelvis [CT chest abdpel w/*[id number] Cat Scan 09/10/24 21:57 Completed ] Stat XR KUB portable [id number] Routine Exams 09/12/24 10:29 Completed XR chest 1V portable [id number] Stat Exams 09/10/24 13:11 Completed US abdomen lmt fluid [id number] Stat Ultrasound 09/11/24 02:13 Com[place]d w [id number] Routine Ultrasound 09/12/24 10:11 Completed Pending at discharge Category Date Time Status Amylase, Peritoneal Fluid Routine Lab 09/11/24 03:10 Received Anaerobic Culture Routine Lab 09/11/24 03:10 Results Body Fluid Culture & GS Routine Lab 09/11/24 03:10 Results C Reactive Protein AM LABS Lab 09/15/24 04:00 Ordered Complete Blood Count w/Auto AM LABS Lab 09/15/24 04:00 Ordered Comprehensive Metabolic Panel AM LABS Lab 09/15/24 04:00 Ordered Magnesium AM LABS Lab 09/15/24 04:00 Ordered OVA and Parasites, Conc and PE Routine Lab 09/12/24 16:08 Received Phosphorus AM LABS Lab 09/15/24 04:00 Ordered Procalcitonin AM LABS Lab 09/15/24 04:00 Ordered Salmonella / Shigella / Campy Routine Lab 09/12/24 16:08 Received Radiology Impressions Chest X-Ray 09/10/24 13:11 IMPRESSION: 1. Negative chest. Chest/Abdomen/Pelvis CT 09/10/24 21:57 IMPRESSION: 1. No definite acute intrathoracic process. 2. Incidental/chronic findings as above. IMPRESSION: 1. Cirrhotic morphology of the liver and stigmata of portal venous hypertension. There has been interval development of numerous hypodense lesions in the left hepatic lobe with the dominant lesion measuring up to 1.9 cm. These may relate to regenerative nodules and/or hepatocellular carcinoma. These findings need to be further interrogated with follow up MRI abdomen with and without contrast utilizing liver mass protocol. 2. Right hemicolon wall thickening may be related to portal venous colopathy. 3 additional incidental/chronic findings as above. Abdomen Ultrasound 09/11/24 02:13 IMPRESSION: Small amount of ascites. Paracentesis Ultrasound 09/12/24 10:11 IMPRESSION: Uncomplicated paracentesis yielding 2350 ml of peritoneal fluid. KUB X-Ray 09/12/24 10:29 IMPRESSION: No acute findings. Laboratory Results WBC 8.29 10^3/uL (3.29-11.43) 09/14/24 04:37 RBC 3.96 10^6/uL (3.85-5.65) 09/14/24 04:37 Hgb 12.70 g/dL (11.27-16.99) 09/14/24 04:37 Hct 40.0 % (37-53) 09/14/24 04:37 MCV 101.0 fl (82-101) 09/14/24 04:37 MCH 32.1 pg (27-33) 09/14/24 04:37 MCHC 31.8 g/dL (30-55) 09/14/24 04:37 RDW 14.3 % (12.1-15.1) 09/14/24 04:37 Plt Count 160 10^3/cmm (157-399) 09/14/24 04:37 MPV 10.5 fL (7.4-10.4) H 09/14/24 04:37 Neut % (Auto) 74.3 % 09/14/24 04:37 Lymph % (Auto) 12.8 % 09/14/24 04:37 [place] % (Auto) 9.2 % 09/14/24 04:37 Eos % (Auto) 3.0 % 09/14/24 04:37 Baso % (Auto) 0.2 % 09/14/24 04:37 Neut # (Auto) 6.16 10^3/uL (1.8-7.7) 09/14/24 04:37 Lymph # (Auto) 1.1 10^3/uL (0.8-4.8) 09/14/24 04:37 [place] # (Auto) 0.8 10^3/uL (0.2-0.9) 09/14/24 04:37 Eos # (Auto) 0.3 10^3/uL (0.0-0.8) 09/14/24 04:37 Baso # (Auto) 0.0 10^3/uL (0.0-0.1) 09/14/24 04:37 Nucleated RBC % (auto) 0 % 09/14/24 04:37 Nucleated RBCs # 0.0 /100WBC 09/14/24 04:37 Differential Comment Yes 09/12/24 17:28 ESR 43 mm/hr (0-10) H 09/11/24 12:16 PT 15.60 SECONDS (12.1-14.9) H 09/11/24 02:01 INR 1.20 (0.8-1.2) 09/11/24 02:01 Sodium 137 mmol/L (136-145) 09/14/24 04:37 Potassium 4.5 mmol/L (3.5-5.1) 09/14/24 04:37 Chloride 101 mmol/L (98-107) 09/14/24 04:37 Carbon Dioxide 28 mmol/L (22-29) 09/14/24 04:37 Anion Gap 12.5 (5-19) 09/14/24 04:37 BUN 16 mg/dL (8-23) 09/14/24 04:37 Creatinine 0.8 mg/dL (0.7-1.2) 09/14/24 04:37 GFR Calculation 96.1 mL/min (90-130) 09/14/24 04:37 Glucose 108 mg/dL (65-115) 09/14/24 04:37 Calculated Osmolality 286 mOsm/kg (285-295) 09/14/24 04:37 Lactic Acid 1.7 mmol/L (0.5-2.2) 09/13/24 09:47 Lactic Acid (Sepsis) 1.9 mmol/L (0.5-2.2) 09/10/24 16:52 Lactate 3.1 mmol/L (0.5-2.2) H 09/12/24 18:00 Calcium 8.3 mg/dL (8.5-10.5) L 09/14/24 04:37 Phosphorus 3.3 mg/dL (2.5-4.5) 09/14/24 04:37 Magnesium 1.8 mg/dL (1.7-2.3) 09/14/24 04:37 Total Bilirubin 2.1 mg/dL (0.15-1.2) H 09/14/24 04:37 GGT 211 U/L (8-61) H 09/12/24 18:00 AST 103 U/L (0-40) H 09/14/24 04:37 ALT 49 U/L (0-41) H 09/14/24 04:37 Alkaline Phosphatase 221 U/L (40-130) H 09/14/24 04:37 Ammonia 32 umol/L (16-60) 09/11/24 12:16 Troponin T Baseline 10 ng/L (0-15) 09/10/24 14:19 Troponin T 120 Minute 9.57 ng/L (0-15) 09/10/24 15:57 Delta Troponin T -0.43 ABS# (0-10) L 09/10/24 15:57 Troponin T Hi Sens 6Hr 11.00 ng/L (0-15) 09/10/24 20:28 Troponin T Hi Sens 6Hr Delta 1.00 ng/L (0-12) 09/10/24 20:28 C-Reactive Protein 28.6 mg/L (0.0-4.9) H 09/14/24 04:37 NT-Pro-B Natriuret Pep 140 pg/mL (0-125) H 09/10/24 22:06 Total Protein 6.3 g/dL (6.6-8.7) L 09/14/24 04:37 Albumin 2.8 g/dL (3.5-5.2) L 09/14/24 04:37 Globulin 3.5 g/dL (1.3-4.6) 09/14/24 04:37 Lipase 50 U/L (13-60) 09/12/24 18:00 Tumor Marker AFP 4.6 ng/mL (0-8.3) 09/11/24 02:01 Procalcitonin 0.16 ng/mL (0-0.5) 09/14/24 04:37 Urine Color Dark yellow (Yellow) A 09/11/24 00:30 Urine Appearance Clear (CLEAR) 09/11/24 00:30 Urine pH 5.0 (5-7) 09/11/24 00:30 Ur Specific [place] 1.094 (1.005-1.030) H 09/11/24 00:30 Urine Protein Trace (Negative) A 09/11/24 00:30 Urine Glucose (UA) Negative (Normal) 09/11/24 00:30 Urine Ketones Negative (Negative) 09/11/24 00:30 Urine Blood Negative (Negative) 09/11/24 00:30 Urine Nitrate Negative (Negative) 09/11/24 00:30 Urine Bilirubin 1+ (Negative) H 09/11/24 00:30 Urine Urobilinogen 2.0 mg/dL (Negative) H 09/11/24 00:30 Ur Leukocyte Esterase Negative (Negative) 09/11/24 00:30 Urine RBC 0-2 /hpf (0-2) 09/11/24 00:30 Urine WBC 0-5 /hpf (0-5) 09/11/24 00:30 Ur Squamous Epith Cells 0-5 /hpf (0-5) 09/11/24 00:30 Amorphous Sediment Not Reportable 09/11/24 00:30 Urine Bacteria None seen /hpf (NONE) 09/11/24 00:30 Hyaline Casts 0-4 /lpf H 09/11/24 00:30 Fluid Color Yellow 09/12/24 17:28 Fluid Appearance Cloudy 09/12/24 17:28 Fluid Specific Grav 1.010 09/12/24 17:28 Fluid pH 8.0 09/12/24 17:28 Fluid WBC 352 /uL 09/12/24 17:28 Fluid RBC 1.000 10^3/uL 09/12/24 17:28 Fld Polynuclear WBCs # 0.033 09/12/24 17:28 Fld Polynuclear WBCs % 9.300 % 09/12/24 17:28 Fl Mononucl WBCs #(Auto) 0.319 09/12/24 17:28 Fl Mononuclear % Auto 90.700 % 09/12/24 17:28 Fld Crystal Laterality Not Reportable 09/12/24 17:28 Fluid Glucose 148.0 mg/dL 09/12/24 17:28 Fluid Total Protein 0.7 g/dL 09/12/24 17:28 Fluid Albumin 0.4 g/dL 09/12/24 17:28 Fluid LDH 47 U/L 09/12/24 17:28 Fluid Alk Phosphatase 10 IU/L 09/12/24 17:28 Fluid Cholesterol 10 mg/dL (0-200) 09/12/24 17:28 Fluid Triglycerides 30 mg/dL (0-150) 09/12/24 17:28 Fluid Uric Acid 3 mg/dL 09/12/24 17:28 Pleural Amylase Cancelled 09/12/24 17:28 Ethyl Alcohol < 10 mg/dL (0-10) 09/11/24 10:27 C. difficile (PCR) Negative (Negative) 09/13/24 16:08 Hepatitis A IgM Ab Non-reactive (Nonreactive) 09/11/24 10:27 Hep Bs Antigen Non-reactive (Nonreactive) 09/11/24 10:27 Hep B Core IgM Ab Non-reactive (Nonreactive) 09/11/24 10:27 Hepatitis C Antibody Reactive (Nonreactive) H 09/11/24 10:27 HCV RNA (PCR) IUs/ml 6.08 Log IU/mL (NOT DETECTED) H 09/11/24 11:51 HCV RNA (PCR) IU log10 [id number] IU/mL (NOT DETECTED) H 09/11/24 11:51 HIV 1&2 Ab & HIV 1 Ag Non-reactive (Non-Reactiv) 09/11/24 10:27 HIV 1&2 Antibody Non-reactive (Non-Reactiv) 09/11/24 10:27 Vitals Last Vital Signs Temp 97.7 F 09/14/24 11:36 Pulse 98 09/14/24 11:36 Resp 19 H 09/14/24 11:36 BP 126/80 09/14/24 11:36 Pulse Ox 94 09/14/24 11:36 O2 Del Method Room Air 09/14/24 11:36 Discharge Plan Discharge Patient Disposition: Home Condition: Stable Prescriptions: New folic acid 1 mg Tablet 1 mg PO DAILY 30 Days Qty: 30 0RF lactulose 20 gram/30 mL Solution 20 g PO Q12H PRN (Reason: constipation) 7 Days Qty: 420 0RF multivitamin with folic acid [Thera] 400 mcg Tablet 1 tab PO DAILY 30 Days Qty: 30 0RF polyethylene glycol 3350 17 gram Powder In Packet 17 g PO DAILY 30 Days Qty: 30 0RF thiamine mononitrate (vit B1) [Vitamin B-1 (mononitrate)] 100 mg Tablet 100 mg PO DAILY 30 Days Qty: 30 0RF Continued amlodipine 5 mg tablet 5 mg PO DAILY Qty: 30 5RF lisinopril 20 mg tablet 20 mg PO QAM Qty: 30 5RF Rx Instructions: 340 B medications albuterol sulfate 90 mcg/actuation HFA aerosol inhaler 2 puff inhalation Q4H PRN (Reason: shortness of breath or wheezing) Qty: 8.5 3RF Rx Instructions: 340 B medications tadalafil [Cialis] 5 mg tablet 2.5 mg PO DAILY PRN (Reason: sexual activity) Qty: 30 1RF ondansetron 4 mg tablet,disintegrating 4 mg PO Q8H PRN (Reason: Nausea And Vomiting) pantoprazole 40 mg tablet,delayed release (DR/EC) 40 mg PO DAILY Discontinued doxycycline hyclate 100 mg tablet 100 mg PO BID amoxicillin-pot clavulanate 875-125 mg tablet 1 tab PO BID azithromycin 500 mg tablet 500 mg PO DAILY No Action spironolactone 25 mg tablet 25 mg PO DAILY Qty: 30 0RF Discharge Orders: Discharge Order (Routine); Ordered 09/14/24 Ordered By: Elmer Maradiaga Referrals: Carlos Orellana MD [Referring] - 1 week (liver cirhosis, liver lesions We have notified your physician's clinic of the need for a follow-up appointment to be scheduled. If you have not heard from them within the next 2 business days, please call them directly. ) Karlos Gallardo MD [Primary Care Provider] - 10/11/24 11:15 am Helen Ball MD [Hospitalist] - 1 month (hepatitis C We have notified your physician's clinic of the need for a follow-up appointment to be scheduled. If you have not heard from them within the next 2 business days, please call them directly. ) Discharge Diet: Cardiac Discharge Activity: Resume usual activity Patient Instructions: Alcohol Abuse, Folic Acid (By mouth), Lactulose (By mouth), Polyethylene Glycol 3350 (By mouth), Ascites (GEN), Opioid Safety, Paracentesis Activity Restrictions/Additional Instructions: -please stop drinking alcohol -Please follow-up with your primary care provider in 1 week -If you have recurrent abdominal pain distention please come back to the emergency room -Follow-up with GI in 1 week for your liver cirrhosis and her liver lesions -for you hepatitis C please follow up with infectious disease - Discharge Attestations Time Spent in Discharge Care*: greater than 30 min Quality Metrics Clinical Quality Measures [ No reported AMI, CVA or VTE this stay] Coding Level of Care Code 95603 Total time (in minutes) for Discharge: 45 Diagnoses Decompensated hepatic cirrhosis K72.90; K74.60 Liver lesion K76.9 Alcohol dependence F10.20 Peripheral edema R60.0 Hyperbilirubinemia E80.6
[2024-09-19 21:04] LABS: Amylase, Peritoneal Fluid <10 U/L
== END 2024-09-14 13:30 | disposition home or self-care (01) | DRG 434 ==
LOC: ER 09-11 02:01 → MEDSURG 09-11 02:32
PROVIDERS: Emergency Medicine; Admitting Provider Internal Medicine; Emergency Provider Emergency Medicine; PCP Family Medicine Adult Medicine; Visit Provider Family Medicine
DX: K70.31 Alcoholic cirrhosis of liver with ascites (principal); B19.20 Unspecified viral hepatitis C without hepatic coma; F10.20 Alcohol dependence, uncomplicated; K21.9 Gastro-esophageal reflux disease without esophagitis; I50.9 Heart failure, unspecified; I11.0 Hypertensive heart disease with heart failure; N62 Hypertrophy of breast; F17.200 Nicotine dependence, unspecified, uncomplicated; J44.9 Chronic obstructive pulmonary disease, unspecified; N52.9 Male erectile dysfunction, unspecified; L40.9 Psoriasis, unspecified; K76.9 Liver disease, unspecified; E80.6 Other disorders of bilirubin metabolism; Z79.51 Long term (current) use of inhaled steroids; Z87.01 Personal history of pneumonia (recurrent); Z88.6 Allergy status to analgesic agent
CPT/HCPCS: 36415; 49083; 71045; 71260; 74018; 74177; 76705; 80053; 80074; 80307; 80503; 81001; 82042; 82105; 82140; 82150; 82274; 82465; 82945; 82977; 83605; 83615; 83630; 83690; 83735; 83880; 83986; 84075; 84100; 84145; 84157; 84315; 84478; 84484; 84560; 85025; 85610; 85651; 86140; 87045; 87070; 87075; 87177; 87205; 87209; 87427; 87449; 87493; 87522; 87806; 89050; 93005; 94640; 96372; G0378; J1940; J2270; J2405; J2543; J3411; J7613

== ENCOUNTER 2024-09-15 05:21 | Emergency (ER) | payer MEDICARE, MEDICAID, SELFPAY ==
[2024-09-15 05:27] VITALS: BP 127/83; PULSE 89; RESP 20; TEMP 36.6; O2SAT 93; BMI 25.1
--- NOTE | 2024-09-15 05:28 | ED_ITS ---
Documented by User: Corey Mead MD 09/15/24 05:31 HPI - Abdominal Pain 2 General: Chief Complaint: Abdominal Pain Stated Complaint: ABD PAIN Time Seen by Provider: 09/15/24 05:22 Source: patient and EMS Mode of arrival: EMS Limitations: no limitations History of Present Illness: 68-year-old male has a history of cirrho sis of the liver. Patient been discharged from hospital yesterday states he been having abdominal pain since then. He states that he does not have any pain medication at home states his pain is diffuse rates today 6 out of 10 denies any fever denies any vomiting or diarrhea. Associated Symptoms: Denies chills, diarrhea, dysuria, fever(s), nausea and vomiting Related Data Home Medications Medication Instructions Recorded Confirmed ondansetron 4 mg disintegrating 4 mg PO Q8H PRN Nausea And Vomiting 09/11/24 09/15/24 tablet pantoprazole 40 mg tablet,delayed 40 mg PO DAILY 09/11/24 09/15/24 release triamcinolone acetonide 0.5 % 1 applic topical BID PRN Skin 09/15/24 09/15/24 topical cream Irritation Previous Rx's Medication Instructions Recorded albuterol sulfate 90 mcg/actuation 2 puff inhalation Q4H PRN 02/02/24 aerosol inhaler shortness of breath or wheezing #8.5 grams amlodipine 5 mg tablet 5 mg PO DAILY blood pressure #30 02/02/24 tabs lisinopril 20 mg tablet 20 mg PO QAM blood pressure #30 02/02/24 tabs tadalafil 5 mg tablet (Cialis) 2.5 mg (1/2 x 5 mg) PO DAILY PRN 06/26/24 sexual activity #30 tabs folic acid 1 mg tablet 1 mg PO DAILY 30 days #30 tabs 09/14/24 lactulose 20 gram/30 mL oral 20 g (30 mL) PO Q12H PRN 09/14/24 solution constipation 7 days #420 mL multivitamin with folic acid 400 1 tab PO DAILY 30 days #30 tabs 09/14/24 mcg tablet (Thera) polyethylene glycol 3350 17 gram 17 g PO DAILY 30 days #30 ea 09/14/24 oral powder packet thiamine mononitrate (vit B1) 100 100 mg PO DAILY 30 days #30 tabs 09/14/24 mg tablet (Vitamin B-1 (mononitrate)) spironolactone 25 mg tablet 25 mg PO DAILY #30 tabs 09/15/24 Allergies Allergy/AdvReac Type Severity Reaction Status Date / Time aspirin Allergy Intermediate Unknown Verified 09/06/24 09:57 Review of Systems 2 Const: Denies: fever(s), chills, body aches or change in appetite ENMT: Denies: throat pain or dental pain Card: Denies: chest pain Resp: Denies: dyspnea GI: Reports: abdominal pain; Denies: nausea, vomiting or diarrhea : Denies: dysuria Musc: Denies: neck pain or back pain Skin/Breast: Denies: rash Neuro: Denies: headache(s) PFSH ED 2 PFSH: Medical History Alcoholic cirrhosis Gynecomastia, male GERD (gastroesophageal reflux disease) Sexual dysfunction Alcohol dependence Psoriasis Smoker unmotivated to quit Hypertension COPD (chronic obstructive pulmonary disease) Surgical History History of repair of laceration Family History Mother Cancer stomach Denies family history of Anesthesia complication Bleeding disorder Social History Smoking and tobacco/nicotine status: unknown if used tobacco/nicotine Alcohol intake: current Alcohol intake frequency: few times a week Substance/Drug Use: never Lives independently: Yes Marital status: Single Number of children: 3 Number of grandchildren: 3 service: No Current occupational status: retired and disabled Physical Exam 2 Const: COMMON NORMALS: no acute distress, patient oriented x3 and healthy appearing HENMT: COMMON NORMALS: normocephalic and atraumatic HEAD & SCALP: n ormocephalic and atraumatic Eye: COMMON NORMALS: conjunctivae normal CONJUNCTIVA: Yes conjunctivae normal Neck/C-Spine: COMMON NORMALS: full ROM and supple Chest: COMMONS NORMALS: normal inspection of the chest Resp: COMMON NORMALS: normal respiratory effort, No retractions, No use of accessory muscles and clear to auscultation bilaterally AUSCULTATION: clear to auscultation bilaterally Cardio: COMMON NORMALS: regular rate, regular rhythm and No murmurs present (Cardio) RATE: regular rate RHYTHM: regular rhythm GI: COMMON NORMALS: Soft to palpation, non-tender and no masses PALPATION: Yes Soft to palpation OTHER: distended abdomen Extremity: COMMON NORMALS: normal to inspection and full ROM Neuro: COMMON NORMALS: patient oriented x3, moves all extremities and no focal motor deficits Psych: COMMON NORMALS: mental status grossly normal, Normal thought process present and cooperative THOUGHT PROCESS: Normal thought process present Skin: COMMON NORMALS: no rashes or lesions noted and no wounds GENERAL SKIN EXAM: no rashes or lesions noted Course 2 Vital Signs: Vital signs: Vital Signs Temperature 98 F 09/15/24 05:27 Pulse Rate 88 09/15/24 06:30 Respiratory Rate 16 09/15/24 06:30 Blood Pressure 146/97 09/15/24 06:30 Pulse Oximetry 95 09/15/24 06:30 Oxygen Delivery Me thod Room Air 09/15/24 06:30 MDM - Abdominal Pain Lab Data 09/15/24 05:52 09/15/24 05:52 Labs/Radiology: Laboratory Results WBC 8.21 10^3/uL (3.29-11.43) 09/15/24 05:52 RBC 4.00 10^6/uL (3.85-5.65) 09/15/24 05:52 Hgb 12.90 g/dL (11.27-16.99) 09/15/24 05:52 Hct 40.2 % (37-53) 09/15/24 05:52 MCV 100.5 fl (82-101) 09/15/24 05:52 MCH 32.3 pg (27-33) 09/15/24 05:52 MCHC 32.1 g/dL (30-55) 09/15/24 05:52 RDW 14.2 % (12.1-15.1) 09/15/24 05:52 Plt Count 167 10^3/cmm (157-399) 09/15/24 05:52 MPV 10.3 fL (7.4-10.4) 09/15/24 05:52 Neut % (Auto) 76.8 % 09/15/24 05:52 Lymph % (Auto) 9.9 % 09/15/24 05:52 [place] % (Auto) 8.8 % 09/15/24 05:52 Eos % (Auto) 3.7 % 09/15/24 05:52 Baso % (Auto) 0.4 % 09/15/24 05:52 Neut # (Auto) 6.32 10^3/uL (1.8-7.7) 09/15/24 05:52 Lymph # (Auto) 0.8 10^3/uL (0.8-4.8) 09/15/24 05:52 [place] # (Auto) 0.7 10^3/uL (0.2-0.9) 09/15/24 05:52 Eos # (Auto) 0.3 10^3/uL (0.0-0.8) 09/15/24 05:52 Baso # (Auto) 0.0 10^3/uL (0.0-0.1) 09/15/24 05:52 Nucleated RBC % (auto) 0 % 09/15/24 05:52 Nucleated RBCs # 0.0 /100WBC 09/15/24 05:52 Sodium 137 mmol/L (136-145) 09/15/24 05:52 Potassium 3.9 mmol/L (3.5-5.1) 09/15/24 05:52 Chloride 98 mmol/L (98-107) 09/15/24 05:52 Carbon Dioxide 33 mmol/L (22-29) H 09/15/24 05:52 Anion Gap 9.9 (5-19) 09/15/24 05:52 BUN 16 mg/dL (8-23) 09/15/24 05:52 Creatinine 0.6 mg/dL (0.7-1.2) L 09/15/24 05:52 GFR Calculation 134.0 mL/min (90-130) H 09/15/24 05:52 Glucose 112 mg/dL (65-115) 09/15/24 05:52 Calculated Osmolality 286 mOsm/kg (285-295) 09/15/24 05:52 Calcium 8.7 mg/dL (8.5-10.5) 09/15/24 05:52 Total Bilirubin 1.7 mg/dL (0.15-1.2) H 09/15/24 05:52 AST 122 U/L (0-40) H 09/15/24 05:52 ALT 52 U/L (0-41) H 09/15/24 05:52 Alkaline Phosphatase 261 U/L (40-130) H 09/15/24 05:52 Total Protein 6.7 g/dL (6.6-8.7) 09/15/24 05:52 Albumin 3.1 g/dL (3.5-5.2) L 09/15/24 05:52 Globulin 3.6 g/dL (1.3-4.6) 09/15/24 05:52 Lipase 37 U/L (13-60) 09/15/24 05:52 Urine Color Dark yellow (Yellow) A 09/15/24 06:32 Urine Appearance Clear (CLEAR) 09/15/24 06:32 Urine pH 5.5 (5-7) 09/15/24 06:32 Ur Specific [place] 1.034 (1.005-1.030) H 09/15/24 06:32 Urine Protein Trace (Negative) A 09/15/24 06:32 Urine Glucose (UA) Negative (Normal) 09/15/24 06:32 Urine Ketones Trace (Negative) 09/15/24 06:32 Urine Blood Negative (Negative) 09/15/24 06:32 Urine Nitrate Positive (Negative) A 09/15/24 06:32 Urine Bilirubin 2+ (Negative) H 09/15/24 06:32 Urine Urobilinogen 2.0 mg/dL (Negative) H 09/15/24 06:32 Ur Leukocyte Esterase Trace (Negative) A 09/15/24 06:32 Urine RBC 0-2 /hpf (0-2) 09/15/24 06:32 Urine WBC 0-5 /hpf (0-5) 09/15/24 06:32 Ur Squamous Epith Cells 0-5 /hpf (0-5) 09/15/24 06:32 Amorphous Sediment Not Reportable 09/15/24 06:32 Urine Bacteria None seen /hpf (NONE) 09/15/24 06:32 Hyaline Casts 2.05 /lpf 09/15/24 06:32 Discharge Plan Discharge Patient Disposition: Home Clinical Impression: Ascites due to alcoholic cirrhosis, Abdominal ascites Alcoholic cirrhosis Qualifiers: Ascites presence: with ascites Qualified Code(s): K70.31 - Alcoholic cirrhosis of liver with ascites Condition: Stable Prescriptions: New spironolactone 25 mg tablet 25 mg PO DAILY Qty: 30 0RF No Action amlodipine 5 mg tablet 5 mg PO DAILY Qty: 30 5RF lisinopril 20 mg tablet 20 mg PO QAM Qty: 30 5RF Rx Instructions: 340 B medications albuterol sulfate 90 mcg/actuation HFA aerosol inhaler 2 puff inhalation Q4H PRN (Reason: shortness of breath or wheezing) Qty: 8.5 3RF Rx Instructions: 340 B medications tadalafil [Cialis] 5 mg tablet 2.5 mg PO DAILY PRN (Reason: sexual activity) Qty: 30 1RF triamcinolone acetonide 0.5 % cream 1 applic topical BID PRN (Reason: Skin Irritation) ondansetron 4 mg tablet,disintegrating 4 mg PO Q8H PRN (Reason: Nausea And Vomiting) pantoprazole 40 mg tablet,delayed release (DR/EC) 40 mg PO DAILY folic acid 1 mg Tablet 1 mg PO DAILY 30 Days Qty: 30 0RF lactulose 20 gram/30 mL Solution 20 g PO Q12H PRN (Reason: constipation) 7 Days Qty: 420 0RF multivitamin with folic acid [Thera] 400 mcg Tablet 1 tab PO DAILY 30 Days Qty: 30 0RF polyethylene glycol 3350 17 gram Powder In Packet 17 g PO DAILY 30 Days Qty: 30 0RF thiamine mononitrate (vit B1) [Vitamin B-1 (mononitrate)] 100 mg Tablet 100 mg PO DAILY 30 Days Qty: 30 0RF Discharge Orders: Discharge ED (Routine); Ordered 09/15/24 Ordered By: Lan Haywood Referrals: Karlos Gallardo MD [Primary Care Provider] - Discharge Diet: Usual diet Discharge Activity: Increase activity as tolerated Patient Instructions: Opioid Safety, Pain Management Activity Restrictions/Additional Instructions: You are seen in the emergency room for complaints of abdominal pain discomfort is due to abdominal distention from the cirrhosis causing fluid buildup (ascites). He will likely need another paracentesis next week. We reviewed your hospitalization records recently as well as lab work done today there is no sign of acute infection. We have given you prescription for spironolactone that should help decrease the amount of fluid buildup in the abdomen take 1 tablet daily follow-up with your primary care provider for further treatment options in the future. Abstain from alcohol. Sign Out Sign Out Data: Patient Sign Out occurred on 09/15/24 at 05:41. Patient's care was discussed, and care was transferred from Corey Mead MD to Lan Haywood DO. Coding Level of Care Code ED Call Center Trainer for [facility] Documented by User: Lan Haywood DO 09/15/24 07:57 HPI - Abdominal Pain 2 General: Chief Complaint: Abdominal Pain Stated Complaint: ABD PAIN Time Seen by Provider: 09/15/24 05:22 Related Data Home Medications Medication Instructions Recorded Confirmed ondansetron 4 mg disintegrating 4 mg PO Q8H PRN Nausea And Vomiting 09/11/24 09/15/24 tablet pantoprazole 40 mg tablet,delayed 40 mg PO DAILY 09/11/24 09/15/24 release triamcinolone acetonide 0.5 % 1 applic topical BID PRN Skin 09/15/24 09/15/24 topical cream Irritation Previous Rx's Medication Instructions Recorded albuterol sulfate 90 mcg/actuation 2 puff inhalation Q4H PRN 02/02/24 aerosol inhaler shortness of breath or wheezing #8.5 grams amlodipine 5 mg tablet 5 mg PO DAILY blood pressure #30 02/02/24 tabs lisinopril 20 mg tablet 20 mg PO QAM blood pressure #30 02/02/24 tabs tadalafil 5 mg tablet (Cialis) 2.5 mg (1/2 x 5 mg) PO DAILY PRN 06/26/24 sexual activity #30 tabs folic acid 1 mg tablet 1 mg PO DAILY 30 days #30 tabs 09/14/24 lactulose 20 gram/30 mL oral 20 g (30 mL) PO Q12H PRN 09/14/24 solution constipation 7 days #420 mL multivitamin with folic acid 400 1 tab PO DAILY 30 days #30 tabs 09/14/24 mcg tablet (Thera) polyethylene glycol 3350 17 gram 17 g PO DAILY 30 days #30 ea 09/14/24 oral powder packet thiamine mononitrate (vit B1) 100 100 mg PO DAILY 30 days #30 tabs 09/14/24 mg tablet (Vitamin B-1 (mononitrate)) spironolactone 25 mg tablet 25 mg PO DAILY #30 tabs 09/15/24 Allergies Allergy/AdvReac Type Severity Reaction Status Date / Time aspirin Allergy Intermediate Unknown Verified 09/06/24 09:57 PFSH ED 2 PFSH: Medical History Alcoholic cirrhosis Gynecomastia, male GERD (gastroesophageal reflux disease) Sexual dysfunction Alcohol dependence Psoriasis Smoker unmotivated to quit Hypertension COPD (chronic obstructive pulmonary disease) Surgical History History of repair of laceration Family History Mother Cancer stomach Denies family history of Anesthesia complication Bleeding disorder Social History Smoking and tobacco/nicotine status: unknown if used tobacco/nicotine Alcohol intake: current Alcohol intake frequency: few times a week Substance/Drug Use: never Lives independently: Yes Marital status: Single Number of children: 3 Number of grandchildren: 3 service: No Current occupational status: retired and disabled Course 2 Vital Signs: Vital signs: Vital Signs Temperature 98 F 09/15/24 05:27 Pulse Rate 88 09/15/24 06:30 Respiratory Rate 16 09/15/24 06:30 Blood Pressure 146/97 09/15/24 06:30 Pulse Oximetry 95 09/15/24 06:30 Oxygen Delivery Me thod Room Air 09/15/24 06:30 MDM - Abdominal Pain Medical Decision Making Care assumed at change of shift. Patient has distended abdomen ready at 2350 mm removed just a few days ago during hospitalization. His liver enzymes are elevated but in the range of his typical back pain. He is complaining of abdominal discomfort he will probably need another paracentesis in a few days likely he will need a peritoneal drain at some point soon. He still is drinking his last drink was sometime within the last week. He has no peritoneal signs at this time do not believe he has an SBP. He has a normal white count reviewed the lab work done during his recent hospitalization culture of the peritoneal fluid was negative. Discharge the patient home on spironolactone 25 mg p.o. daily and have him follow-up with paracentesis next week he should be referred to hepatology for consideration of placement of a drain. Medical Records I reviewed the patient's medical records. Lab Data I reviewed the patient's lab results. 09/15/24 05:52 09/15/24 05:52 Labs/Radiology: Laboratory Results WBC 8.21 10^3/uL (3.29-11.43) 09/15/24 05:52 RBC 4.00 10^6/uL (3.85-5.65) 09/15/24 05:52 Hgb 12.90 g/dL (11.27-16.99) 09/15/24 05:52 Hct 40.2 % (37-53) 09/15/24 05:52 MCV 100.5 fl (82-101) 09/15/24 05:52 MCH 32.3 pg (27-33) 09/15/24 05:52 MCHC 32.1 g/dL (30-55) 09/15/24 05:52 RDW 14.2 % (12.1-15.1) 09/15/24 05:52 Plt Count 167 10^3/cmm (157-399) 09/15/24 05:52 MPV 10.3 fL (7.4-10.4) 09/15/24 05:52 Neut % (Auto) 76.8 % 09/15/24 05:52 Lymph % (Auto) 9.9 % 09/15/24 05:52 [place] % (Auto) 8.8 % 09/15/24 05:52 Eos % (Auto) 3.7 % 09/15/24 05:52 Baso % (Auto) 0.4 % 09/15/24 05:52 Neut # (Auto) 6.32 10^3/uL (1.8-7.7) 09/15/24 05:52 Lymph # (Auto) 0.8 10^3/uL (0.8-4.8) 09/15/24 05:52 [place] # (Auto) 0.7 10^3/uL (0.2-0.9) 09/15/24 05:52 Eos # (Auto) 0.3 10^3/uL (0.0-0.8) 09/15/24 05:52 Baso # (Auto) 0.0 10^3/uL (0.0-0.1) 09/15/24 05:52 Nucleated RBC % (auto) 0 % 09/15/24 05:52 Nucleated RBCs # 0.0 /100WBC 09/15/24 05:52 Sodium 137 mmol/L (136-145) 09/15/24 05:52 Potassium 3.9 mmol/L (3.5-5.1) 09/15/24 05:52 Chloride 98 mmol/L (98-107) 09/15/24 05:52 Carbon Dioxide 33 mmol/L (22-29) H 09/15/24 05:52 Anion Gap 9.9 (5-19) 09/15/24 05:52 BUN 16 mg/dL (8-23) 09/15/24 05:52 Creatinine 0.6 mg/dL (0.7-1.2) L 09/15/24 05:52 GFR Calculation 134.0 mL/min (90-130) H 09/15/24 05:52 Glucose 112 mg/dL (65-115) 09/15/24 05:52 Calculated Osmolality 286 mOsm/kg (285-295) 09/15/24 05:52 Calcium 8.7 mg/dL (8.5-10.5) 09/15/24 05:52 Total Bilirubin 1.7 mg/dL (0.15-1.2) H 09/15/24 05:52 AST 122 U/L (0-40) H 09/15/24 05:52 ALT 52 U/L (0-41) H 09/15/24 05:52 Alkaline Phosphatase 261 U/L (40-130) H 09/15/24 05:52 Total Protein 6.7 g/dL (6.6-8.7) 09/15/24 05:52 Albumin 3.1 g/dL (3.5-5.2) L 09/15/24 05:52 Globulin 3.6 g/dL (1.3-4.6) 09/15/24 05:52 Lipase 37 U/L (13-60) 09/15/24 05:52 Urine Color Dark yellow (Yellow) A 09/15/24 06:32 Urine Appearance Clear (CLEAR) 09/15/24 06:32 Urine pH 5.5 (5-7) 09/15/24 06:32 Ur Specific [place] 1.034 (1.005-1.030) H 09/15/24 06:32 Urine Protein Trace (Negative) A 09/15/24 06:32 Urine Glucose (UA) Negative (Normal) 09/15/24 06:32 Urine Ketones Trace (Negative) 09/15/24 06:32 Urine Blood Negative (Negative) 09/15/24 06:32 Urine Nitrate Positive (Negative) A 09/15/24 06:32 Urine Bilirubin 2+ (Negative) H 09/15/24 06:32 Urine Urobilinogen 2.0 mg/dL (Negative) H 09/15/24 06:32 Ur Leukocyte Esterase Trace (Negative) A 09/15/24 06:32 Urine RBC 0-2 /hpf (0-2) 09/15/24 06:32 Urine WBC 0-5 /hpf (0-5) 09/15/24 06:32 Ur Squamous Epith Cells 0-5 /hpf (0-5) 09/15/24 06:32 Amorphous Sediment Not Reportable 09/15/24 06:32 Urine Bacteria None seen /hpf (NONE) 09/15/24 06:32 Hyaline Casts 2.05 /lpf 09/15/24 06:32 No radiology studies performed this visit Discharge Plan Discharge Patient Disposition: Home Clinical Impression: Ascites due to alcoholic cirrhosis, Abdominal ascites Alcoholic cirrhosis Qualifiers: Ascites presence: with ascites Qualified Code(s): K70.31 - Alcoholic cirrhosis of liver with ascites Condition: Stable Prescriptions: New spironolactone 25 mg tablet 25 mg PO DAILY Qty: 30 0RF No Action amlodipine 5 mg tablet 5 mg PO DAILY Qty: 30 5RF lisinopril 20 mg tablet 20 mg PO QAM Qty: 30 5RF Rx Instructions: 340 B medications albuterol sulfate 90 mcg/actuation HFA aerosol inhaler 2 puff inhalation Q4H PRN (Reason: shortness of breath or wheezing) Qty: 8.5 3RF Rx Instructions: 340 B medications tadalafil [Cialis] 5 mg tablet 2.5 mg PO DAILY PRN (Reason: sexual activity) Qty: 30 1RF triamcinolone acetonide 0.5 % cream 1 applic topical BID PRN (Reason: Skin Irritation) ondansetron 4 mg tablet,disintegrating 4 mg PO Q8H PRN (Reason: Nausea And Vomiting) pantoprazole 40 mg tablet,delayed release (DR/EC) 40 mg PO DAILY folic acid 1 mg Tablet 1 mg PO DAILY 30 Days Qty: 30 0RF lactulose 20 gram/30 mL Solution 20 g PO Q12H PRN (Reason: constipation) 7 Days Qty: 420 0RF multivitamin with folic acid [Thera] 400 mcg Tablet 1 tab PO DAILY 30 Days Qty: 30 0RF polyethylene glycol 3350 17 gram Powder In Packet 17 g PO DAILY 30 Days Qty: 30 0RF thiamine mononitrate (vit B1) [Vitamin B-1 (mononitrate)] 100 mg Tablet 100 mg PO DAILY 30 Days Qty: 30 0RF Discharge Orders: Discharge ED (Routine); Ordered 09/15/24 Ordered By: Lan Haywood Referrals: Karlos Gallardo MD [Primary Care Provider] - Discharge Diet: Usual diet Discharge Activity: Increase activity as tolerated Patient Instructions: Opioid Safety, Pain Management Activity Restrictions/Additional Instructions: You are seen in the emergency room for complaints of abdominal pain discomfort is due to abdominal distention from the cirrhosis causing fluid buildup (ascites). He will likely need another paracentesis next week. We reviewed your hospitalization records recently as well as lab work done today there is no sign of acute infection. We have given you prescription for spironolactone that should help decrease the amount of fluid buildup in the abdomen take 1 tablet daily follow-up with your primary care provider for further treatment options in the future. Abstain from alcohol. Sign Out Sign Out Data: Patient Sign Out occurred on 09/15/24 at 05:41. Patient's care was discussed, and care was transferred from Corey Mead MD to Lan Haywood DO. Coding Level of Care Code ED Call Center Trainer for [place] [facility]
[2024-09-15 05:45] VITALS: PULSE 90; RESP 18; O2SAT 84
[2024-09-15 05:58] LABS: Basophils % 0.4 %; Eosinophils # 0.3 10^3/uL (0.0-0.8); Eosinophils % 3.7 %; Hematocrit 40.2 % (37-53); Lymphocytes # 0.8 10^3/uL (0.8-4.8); Lymphocytes % 9.9 %; Mean Corpuscular HGB Conc 32.1 g/dL (30-55); Mean Corpuscular Hemoglobin 32.3 pg (27-33); Mean Corpuscular Volume 100.5 fl (82-101); Mean Platelet Volume 10.3 fL (7.4-10.4); Monocytes # 0.7 10^3/uL (0.2-0.9); Monocytes % 8.8 %; Neutrophils # 6.32 10^3/uL (1.8-7.7); Neutrophils % 76.8 %; Nucleated Red Blood Cells % 0 %; Platelet Count 167 10^3/cmm (157-399); Red Cell Distribution Width 14.2 % (12.1-15.1); White Blood Count 8.21 10^3/uL (3.29-11.43)
[2024-09-15 06:13] VITALS: BP 146/97; O2SAT 95
[2024-09-15 06:18] LABS: Alanine Aminotransferase 52 U/L (0-41); Albumin Level 3.1 g/dL (3.5-5.2); Alkaline Phosphatase 261 U/L (40-130); Anion Gap 9.9 (5-19); Aspartate Amino Transferase 122 U/L (0-40); Blood Urea Nitrogen 16 mg/dL (8-23); Calcium 8.7 mg/dL (8.5-10.5); Carbon Dioxide 33 mmol/L (22-29); Chloride 98 mmol/L (98-107); Globulin 3.6 g/dL (1.3-4.6); Glucose 112 mg/dL (65-115); Lipase 37 U/L (13-60); Osmolality Calculated 286 mOsm/kg (285-295); Potassium 3.9 mmol/L (3.5-5.1); Sodium 137 mmol/L (136-145); Total Bilirubin 1.7 mg/dL (0.15-1.2); Total Protein 6.7 g/dL (6.6-8.7)
[2024-09-15 06:20] LABS: Creatinine Clr Calc Pharmacy 91.5805
--- NOTE | 2024-09-15 06:23 | PC.NURSE ---
Patient sleeping in bed at this time.
[2024-09-15 06:30] VITALS: BP 146/97; PULSE 88; RESP 16; O2SAT 95
[2024-09-15 07:05] LABS: Bilirubin Urine 2+ (Negative); Blood Urine Negative (Negative); Glucose Urine UA Negative (Normal); Ketones Urine Trace (Negative); Leukocyte Esterase Urine Trace (Negative); Nitrate Urine Positive (Negative); Protein Urine Trace (Negative); Urine Appearance Clear (CLEAR); Urine Color Dark Yellow (Yellow); pH Urine 5.5 (5-7)
[2024-09-15 07:09] LABS: Add Urine Microscopic? YES; Bacteria Urine None Seen /hpf; Hyaline Casts Urine 2.05 /lpf; RBC Urine 0-2 /hpf (0-2); Squamous Epithelial Cell Urine 0-5 /hpf (0-5); WBC Urine 0-5 /hpf (0-5)
[2024-09-15 07:11] LABS: Specific Gravity, Urine 1.034 (1.005-1.030)
--- NOTE | 2024-09-15 07:24 | PC.PHAR ---
Pt has current therapy of Doxycycline hyclate 100mg tablet bid for 10 days. He should be taking through 09/16/24. Pt states he will not be taking any more of it.
[2024-09-15 08:06] VITALS: BP 138/78; PULSE 87; O2SAT 97
[2024-09-15 08:12] VITALS: BP 138/78; PULSE 85; O2SAT 95
== END 2024-09-15 08:12 | disposition home or self-care (01) ==
PROVIDERS: Emergency Medicine; Emergency Provider Family Medicine; PCP Family Medicine Adult Medicine
DX: K70.31 Alcoholic cirrhosis of liver with ascites (principal); J44.9 Chronic obstructive pulmonary disease, unspecified; I10 Essential (primary) hypertension
CPT/HCPCS: 36415; 80053; 81001; 83690; 85025; 99283

== ENCOUNTER 2024-09-17 09:25 | Emergency (ER) | payer MEDICARE, MEDICAID, SELFPAY ==
[2024-09-17 09:32] VITALS: BP 135/84; PULSE 100; RESP 20; TEMP 36.7; O2SAT 95; BMI 25.9
--- NOTE | 2024-09-17 09:48 | ED_ITS ---
Documented by User: KEIKO Pastrana 09/17/24 12:18 HPI - Abdominal Pain 2 General: Chief Complaint: Abdominal Pain Stated Complaint: sob, swollen abd Time Seen by Provider: 09/17/24 09:30 Source: patient Mode of arrival: ambulatory Limitations: no limitations History of Present Illness: Patient is a 68 year old male with a past medical history significant for alcohol use disorder, alcoholic liver cirrhosis, GERD, hypertension, gynecomastia, tobacco use disorder, COPD, hypertension, and multiple other comorbidities here for complaints of abdominal pain/distension and having difficulty breathing due to his abdomen being so distended. He was admitted here just 1-2 weeks ago for similar symptoms. Had a paracentesis performed on 09/12. He was reportedly referred to GI but is currently awaiting this appointment. He was seen here in the emergency department again on 09/15. Patient is not running fevers. He has not had a cough or other URI-like symptoms. He feels like he is short of breath due to his abdominal distention. He arrives with normal vital signs. MD elicited complaint: abdominal pain Onset (ago): day(s) Pain Consistency: constant Location: Diffuse Severity: mild Migration to: no migration Relieving factors: other (paracentesis) Associated Symptoms: Denies chills, diarrhea, dysuria, fever(s), nausea, syncope and vomiting Related Data Home Medications Medication Instructions Recorded Confirmed ondansetron 4 mg disintegrating 4 mg PO Q8H PRN Nausea And Vomiting 09/11/24 09/17/24 tablet pantoprazole 40 mg tablet,delayed 40 mg PO DAILY 09/11/24 09/17/24 release triamcinolone acetonide 0.5 % 1 applic topical BID PRN Skin 09/15/24 09/17/24 topical cream Irritation Previous Rx's Medication Instructions Recorded albuterol sulfate 90 mcg/actuation 2 puff inhalation Q4H PRN 02/02/24 aerosol inhaler shortness of breath or wheezing #8.5 grams amlodipine 5 mg tablet 5 mg PO DAILY blood pressure #30 02/02/24 tabs lisinopril 20 mg tablet 20 mg PO QAM blood pressure #30 02/02/24 tabs tadalafil 5 mg tablet (Cialis) 2.5 mg (1/2 x 5 mg) PO DAILY PRN 06/26/24 sexual activity #30 tabs folic acid 1 mg tablet 1 mg PO DAILY 30 days #30 tabs 09/14/24 lactulose 20 gram/30 mL oral 20 g (30 mL) PO Q12H PRN 09/14/24 solution constipation 7 days #420 mL multivitamin with folic acid 400 1 tab PO DAILY 30 days #30 tabs 09/14/24 mcg tablet (Thera) polyethylene glycol 3350 17 gram 17 g PO DAILY 30 days #30 ea 09/14/24 oral powder packet thiamine mononitrate (vit B1) 100 100 mg PO DAILY 30 days #30 tabs 09/14/24 mg tablet (Vitamin B-1 (mononitrate)) spironolactone 25 mg tablet 25 mg PO DAILY #30 tabs 09/15/24 Allergies Allergy/AdvReac Type Severity Reaction Status Date / Time aspirin Allergy Intermediate Unknown Verified 09/17/24 08:49 Review of Systems 2 Const: Denies: fever(s), chills, body aches, fatigue or malaise Card: Denies: chest pain, palpitations, irregular heart rhythm, edema, swelling of feet/ankles, lightheadedness, syncope or pre-syncope Resp: Reports: dyspnea; Denies: productive cough, non-productive cough or chest congestion GI: Reports: abdominal pain (distention); Denies: nausea, vomiting or diarrhea : Denies: flank pain or dysuria Musc: Denies: back pain, extremity swelling or joint swelling Skin/Breast: Denies: rash PFSH ED 2 PFSH: Medical History Alcoholic cirrhosis Gynecomastia, male GERD (gastroesophageal reflux disease) Sexual dysfunction Alcohol dependence Psoriasis Smoker unmotivated to quit Hypertension COPD (chronic obstructive pulmonary disease) Surgical History History of repair of laceration Family History Mother Cancer stomach Denies family history of Anesthesia complication Bleeding disorder Social History Smoking and tobacco/nicotine status: former use of tobacco/nicotine Alcohol intake: current Alcohol intake frequency: few times a week Substance/Drug Use: never Lives independently: Yes Marital status: Single Number of children: 3 Number of grandchildren: 3 service: No Current occupational status: retired and disabled Physical Exam 2 Const: COMMON NORMALS: no acute distress, patient oriented x3, no limitations, alert and well nourished GENERAL APPEARANCE: cooperative O RIENTATION/CONSCIOUSNESS: Yes awake, Yes oriented to person, Yes oriented to place and Yes oriented to time Eye: COMMON NORMALS: no scleral icterus Resp: COMMON NORMALS: normal respiratory effort and clear to auscultation bilaterally AUSCULTATION: clear to auscultation bilaterally Cardio: COMMON NORMALS: regular rate and regular rhythm RATE: regular rate RHYTHM: regular rhythm GI: INSPECTION: Yes abdominal distension PALPATION: Yes Firmness to palpation present (GI) (distension/ascities) Extremity: COMMON NORMALS: no clubbing, cyanosis or edema and no pedal edema GENERAL: Yes normal exam except as noted Neuro: COMMON NORMALS: patient oriented x3 SENSORIUM/ORIENTATION: Yes alert, Yes oriented to person, Yes oriented to place and Yes oriented to time Skin: COMMON NORMALS: no rashes or lesions noted GENERAL SKIN EXAM: no rashes or lesions noted Course 2 Vital Signs: Vital signs: Vital Signs Temperature 98.0 F 09/17/24 09:32 Pulse Rate 99 09/17/24 12:14 Respiratory Rate 20 H 09/17/24 10:05 Blood Pressure 157/108 09/17/24 12:14 Pulse Oximetry 98 09/17/24 12:14 Oxygen Delivery Me thod Room Air 09/17/24 11:45 MDM - Abdominal Pain Medical Decision Making Patient is a 68-year-old male presenting to the emergency department requesting a therapeutic paracentesis. His vital signs are stable upon arrival. His blood work overall is nonactionable. He has a normal white count. His chronically elevated LFTs are close to baseline. He has no complaints of severe abdominal pain, altered mental status, fevers, hypotension, or other emergent concerns. We were able to contact his GI referral at [facility], Dr. Orellana's office, who stated they were still processing his referral and should be reaching out to him shortly to help set him up with his follow-up appointment. He most likely will require additional therapeutic paracenteses until that appointment. He eventually probably will require peritoneal drain. 4250ml taken off during paracentesis today. He feels much improved and breathing was instantly better. States he wants to go home. Medical Records I reviewed the patient's medical records. Lab Data I reviewed the patient's lab results. 09/17/24 10:12 09/17/24 10:12 Labs/Radiology: Radiology Impressions Chest X-Ray 09/17/24 10:05 Impression: Atherosclerosis. Laboratory Results WBC 7.21 10^3/uL (3.29-11.43) 09/17/24 10:12 RBC 4.01 10^6/uL (3.85-5.65) 09/17/24 10:12 Hgb 12.90 g/dL (11.27-16.99) 09/17/24 10:12 Hct 39.7 % (37-53) 09/17/24 10:12 MCV 99.0 fl (82-101) 09/17/24 10:12 MCH 32.2 pg (27-33) 09/17/24 10:12 MCHC 32.5 g/dL (30-55) 09/17/24 10:12 RDW 14.6 % (12.1-15.1) 09/17/24 10:12 Plt Count 176 10^3/cmm (157-399) 09/17/24 10:12 MPV 10.7 fL (7.4-10.4) H 09/17/24 10:12 Neut % (Auto) 75.5 % 09/17/24 10:12 Lymph % (Auto) 10.8 % 09/17/24 10:12 Stanton % (Auto) 9.7 % 09/17/24 10:12 Eos % (Auto) 3.2 % 09/17/24 10:12 Baso % (Auto) 0.4 % 09/17/24 10:12 Neut # (Auto) 5.44 10^3/uL (1.8-7.7) 09/17/24 10:12 Lymph # (Auto) 0.8 10^3/uL (0.8-4.8) 09/17/24 10:12 Stanton # (Auto) 0.7 10^3/uL (0.2-0.9) 09/17/24 10:12 Eos # (Auto) 0.2 10^3/uL (0.0-0.8) 09/17/24 10:12 Baso # (Auto) 0.0 10^3/uL (0.0-0.1) 09/17/24 10:12 Nucleated RBC % (auto) 0 % 09/17/24 10:12 Nucleated RBCs # 0.0 /100WBC 09/17/24 10:12 Sodium 137 mmol/L (136-145) 09/17/24 10:12 Potassium 4.1 mmol/L (3.5-5.1) 09/17/24 10:12 Chloride 100 mmol/L (98-107) 09/17/24 10:12 Carbon Dioxide 29 mmol/L (22-29) 09/17/24 10:12 Anion Gap 12.1 (5-19) 09/17/24 10:12 BUN 15 mg/dL (8-23) 09/17/24 10:12 Creatinine 0.7 mg/dL (0.7-1.2) 09/17/24 10:12 GFR Calculation 112.1 mL/min (90-130) 09/17/24 10:12 Glucose 123 mg/dL (65-115) H 09/17/24 10:12 Calculated Osmolality 286 mOsm/kg (285-295) 09/17/24 10:12 Calcium 8.8 mg/dL (8.5-10.5) 09/17/24 10:12 Total Bilirubin 1.6 mg/dL (0.15-1.2) H 09/17/24 10:12 AST 222 U/L (0-40) H 09/17/24 10:12 ALT 74 U/L (0-41) H 09/17/24 10:12 Alkaline Phosphatase 259 U/L (40-130) H 09/17/24 10:12 Total Protein 6.5 g/dL (6.6-8.7) L 09/17/24 10:12 Albumin 3.0 g/dL (3.5-5.2) L 09/17/24 10:12 Globulin 3.5 g/dL (1.3-4.6) 09/17/24 10:12 Lipase 44 U/L (13-60) 09/17/24 10:12 All radiology interpretation(s) finalized by discharge Discharge Plan Discharge Patient Disposition: Home Clinical Impression: Ascites due to alcoholic cirrhosis Condition: Stable Prescriptions: No Action amlodipine 5 mg tablet 5 mg PO DAILY Qty: 30 5RF lisinopril 20 mg tablet 20 mg PO QAM Qty: 30 5RF Rx Instructions: 340 B medications albuterol sulfate 90 mcg/actuation HFA aerosol inhaler 2 puff inhalation Q4H PRN (Reason: shortness of breath or wheezing) Qty: 8.5 3RF Rx Instructions: 340 B medications tadalafil [Cialis] 5 mg tablet 2.5 mg PO DAILY PRN (Reason: sexual activity) Qty: 30 1RF triamcinolone acetonide 0.5 % cream 1 applic topical BID PRN (Reason: Skin Irritation) spironolactone 25 mg tablet 25 mg PO DAILY Qty: 30 0RF ondansetron 4 mg tablet,disintegrating 4 mg PO Q8H PRN (Reason: Nausea And Vomiting) pantoprazole 40 mg tablet,delayed release (DR/EC) 40 mg PO DAILY folic acid 1 mg Tablet 1 mg PO DAILY 30 Days Qty: 30 0RF lactulose 20 gram/30 mL Solution 20 g PO Q12H PRN (Reason: constipation) 7 Days Qty: 420 0RF multivitamin with folic acid [Thera] 400 mcg Tablet 1 tab PO DAILY 30 Days Qty: 30 0RF polyethylene glycol 3350 17 gram Powder In Packet 17 g PO DAILY 30 Days Qty: 30 0RF thiamine mononitrate (vit B1) [Vitamin B-1 (mononitrate)] 100 mg Tablet 100 mg PO DAILY 30 Days Qty: 30 0RF Discharge Orders: Discharge ED (Routine); Ordered 09/17/24 Ordered By: Jenniffer Singh Referrals: Karlos Gallardo MD [Primary Care Provider] - Patient Instructions: Ascites (ED), Paracentesis (DC) Activity Restrictions/Additional Instructions: You have been referred to Dr. Orellana at [facility]. We have contacted their office and they are still processing your referral. You can contact them at [phone] for further updates on when they can schedule your follow up appointment. Coding Level of Care Code ED Microfilm Clerk for Chg Fwd Documented by User: Lan Haywood DO 09/17/24 13:02 HPI - Abdominal Pain 2 General: Chief Complaint: Abdominal Pain Stated Complaint: sob, swollen abd Time Seen by Provider: 09/17/24 09:30 Related Data Home Medications Medication Instructions Recorded Confirmed ondansetron 4 mg disintegrating 4 mg PO Q8H PRN Nausea And Vomiting 09/11/24 09/17/24 tablet pantoprazole 40 mg tablet,delayed 40 mg PO DAILY 09/11/24 09/17/24 release triamcinolone acetonide 0.5 % 1 applic topical BID PRN Skin 09/15/24 09/17/24 topical cream Irritation Previous Rx's Medication Instructions Recorded albuterol sulfate 90 mcg/actuation 2 puff inhalation Q4H PRN 02/02/24 aerosol inhaler shortness of breath or wheezing #8.5 grams amlodipine 5 mg tablet 5 mg PO DAILY blood pressure #30 02/02/24 tabs lisinopril 20 mg tablet 20 mg PO QAM blood pressure #30 02/02/24 tabs tadalafil 5 mg tablet (Cialis) 2.5 mg (1/2 x 5 mg) PO DAILY PRN 06/26/24 sexual activity #30 tabs folic acid 1 mg tablet 1 mg PO DAILY 30 days #30 tabs 09/14/24 lactulose 20 gram/30 mL oral 20 g (30 mL) PO Q12H PRN 09/14/24 solution constipation 7 days #420 mL multivitamin with folic acid 400 1 tab PO DAILY 30 days #30 tabs 09/14/24 mcg tablet (Thera) polyethylene glycol 3350 17 gram 17 g PO DAILY 30 days #30 ea 09/14/24 oral powder packet thiamine mononitrate (vit B1) 100 100 mg PO DAILY 30 days #30 tabs 09/14/24 mg tablet (Vitamin B-1 (mononitrate)) spironolactone 25 mg tablet 25 mg PO DAILY #30 tabs 09/15/24 Allergies Allergy/AdvReac Type Severity Reaction Status Date / Time aspirin Allergy Intermediate Unknown Verified 09/17/24 08:49 PFSH ED 2 PFSH: Medical History Alcoholic cirrhosis Gynecomastia, male GERD (gastroesophageal reflux disease) Sexual dysfunction Alcohol dependence Psoriasis Smoker unmotivated to quit Hypertension COPD (chronic obstructive pulmonary disease) Surgical History History of repair of laceration Family History Mother Cancer stomach Denies family history of Anesthesia complication Bleeding disorder Social History Smoking and tobacco/nicotine status: former use of tobacco/nicotine Alcohol intake: current Alcohol intake frequency: few times a week Substance/Drug Use: never Lives independently: Yes Marital status: Single Number of children: 3 Number of grandchildren: 3 service: No Current occupational status: retired and disabled Course 2 Vital Signs: Vital signs: Vital Signs Temperature 98.0 F 09/17/24 09:32 Pulse Rate 99 09/17/24 12:14 Respiratory Rate 20 H 09/17/24 10:05 Blood Pressure 157/108 09/17/24 12:14 Pulse Oximetry 98 09/17/24 12:14 Oxygen Delivery Me thod Room Air 09/17/24 11:45 MDM - Abdominal Pain Medical Decision Making Patient is a 68-year-old male presenting to the emergency department requesting a therapeutic paracentesis. His vital signs are stable upon arrival. His blood work overall is nonactionable. He has a normal white count. His chronically elevated LFTs are close to baseline. He has no complaints of severe abdominal pain, altered mental status, fevers, hypotension, or other emergent concerns. We were able to contact his GI referral at [facility], Dr. Orellana's office, who stated they were still processing his referral and should be reaching out to him shortly to help set him up with his follow-up appointment. He most likely will require additional therapeutic paracenteses until that appointment. He eventually probably will require peritoneal drain. 4250ml taken off during paracentesis today. He feels much improved and breathing was instantly better. States he wants to go home. Chart reviewed and patient discussed with midlevel. Agree with assessment and plan. Lab Data 09/17/24 10:12 09/17/24 10:12 Labs/Radiology: Radiology Impressions Chest X-Ray 09/17/24 10:05 Impression: Atherosclerosis. Laboratory Results WBC 7.21 10^3/uL (3.29-11.43) 09/17/24 10:12 RBC 4.01 10^6/uL (3.85-5.65) 09/17/24 10:12 Hgb 12.90 g/dL (11.27-16.99) 09/17/24 10:12 Hct 39.7 % (37-53) 09/17/24 10:12 MCV 99.0 fl (82-101) 09/17/24 10:12 MCH 32.2 pg (27-33) 09/17/24 10:12 MCHC 32.5 g/dL (30-55) 09/17/24 10:12 RDW 14.6 % (12.1-15.1) 09/17/24 10:12 Plt Count 176 10^3/cmm (157-399) 09/17/24 10:12 MPV 10.7 fL (7.4-10.4) H 09/17/24 10:12 Neut % (Auto) 75.5 % 09/17/24 10:12 Lymph % (Auto) 10.8 % 09/17/24 10:12 Stanton % (Auto) 9.7 % 09/17/24 10:12 Eos % (Auto) 3.2 % 09/17/24 10:12 Baso % (Auto) 0.4 % 09/17/24 10:12 Neut # (Auto) 5.44 10^3/uL (1.8-7.7) 09/17/24 10:12 Lymph # (Auto) 0.8 10^3/uL (0.8-4.8) 09/17/24 10:12 Stanton # (Auto) 0.7 10^3/uL (0.2-0.9) 09/17/24 10:12 Eos # (Auto) 0.2 10^3/uL (0.0-0.8) 09/17/24 10:12 Baso # (Auto) 0.0 10^3/uL (0.0-0.1) 09/17/24 10:12 Nucleated RBC % (auto) 0 % 09/17/24 10:12 Nucleated RBCs # 0.0 /100WBC 09/17/24 10:12 Sodium 137 mmol/L (136-145) 09/17/24 10:12 Potassium 4.1 mmol/L (3.5-5.1) 09/17/24 10:12 Chloride 100 mmol/L (98-107) 09/17/24 10:12 Carbon Dioxide 29 mmol/L (22-29) 09/17/24 10:12 Anion Gap 12.1 (5-19) 09/17/24 10:12 BUN 15 mg/dL (8-23) 09/17/24 10:12 Creatinine 0.7 mg/dL (0.7-1.2) 09/17/24 10:12 GFR Calculation 112.1 mL/min (90-130) 09/17/24 10:12 Glucose 123 mg/dL (65-115) H 09/17/24 10:12 Calculated Osmolality 286 mOsm/kg (285-295) 09/17/24 10:12 Calcium 8.8 mg/dL (8.5-10.5) 09/17/24 10:12 Total Bilirubin 1.6 mg/dL (0.15-1.2) H 09/17/24 10:12 AST 222 U/L (0-40) H 09/17/24 10:12 ALT 74 U/L (0-41) H 09/17/24 10:12 Alkaline Phosphatase 259 U/L (40-130) H 09/17/24 10:12 Total Protein 6.5 g/dL (6.6-8.7) L 09/17/24 10:12 Albumin 3.0 g/dL (3.5-5.2) L 09/17/24 10:12 Globulin 3.5 g/dL (1.3-4.6) 09/17/24 10:12 Lipase 44 U/L (13-60) 09/17/24 10:12 Discharge Plan Discharge Patient Disposition: Home Clinical Impression: Ascites due to alcoholic cirrhosis Condition: Stable Prescriptions: No Action amlodipine 5 mg tablet 5 mg PO DAILY Qty: 30 5RF lisinopril 20 mg tablet 20 mg PO QAM Qty: 30 5RF Rx Instructions: 340 B medications albuterol sulfate 90 mcg/actuation HFA aerosol inhaler 2 puff inhalation Q4H PRN (Reason: shortness of breath or wheezing) Qty: 8.5 3RF Rx Instructions: 340 B medications tadalafil [Cialis] 5 mg tablet 2.5 mg PO DAILY PRN (Reason: sexual activity) Qty: 30 1RF triamcinolone acetonide 0.5 % cream 1 applic topical BID PRN (Reason: Skin Irritation) spironolactone 25 mg tablet 25 mg PO DAILY Qty: 30 0RF ondansetron 4 mg tablet,disintegrating 4 mg PO Q8H PRN (Reason: Nausea And Vomiting) pantoprazole 40 mg tablet,delayed release (DR/EC) 40 mg PO DAILY folic acid 1 mg Tablet 1 mg PO DAILY 30 Days Qty: 30 0RF lactulose 20 gram/30 mL Solution 20 g PO Q12H PRN (Reason: constipation) 7 Days Qty: 420 0RF multivitamin with folic acid [Thera] 400 mcg Tablet 1 tab PO DAILY 30 Days Qty: 30 0RF polyethylene glycol 3350 17 gram Powder In Packet 17 g PO DAILY 30 Days Qty: 30 0RF thiamine mononitrate (vit B1) [Vitamin B-1 (mononitrate)] 100 mg Tablet 100 mg PO DAILY 30 Days Qty: 30 0RF Discharge Orders: Discharge ED (Routine); Ordered 09/17/24 Ordered By: Jenniffer Singh Referrals: Karlos Gallardo MD [Primary Care Provider] - Patient Instructions: Ascites (ED), Paracentesis (DC) Activity Restrictions/Additional Instructions: You have been referred to Dr. Orellana at [facility]. We have contacted their office and they are still processing your referral. You can contact them at [phone] for further updates on when they can schedule your follow up appointment. Coding Level of Care Code ED Microfilm Clerk for Orlando Corrales
--- NOTE | 2024-09-17 10:01 | US_ITS ---
WS: [id number] ULTRASOUND-GUIDED PARACENTESIS CLINICAL INFORMATION: ascities, abdominal pain COMPARISON: None. Procedure Informed consent: The risks, benefits, and alternatives of the procedure were discussed with the clair ent. Verbal and written consent was obtained. Timeout: A timeout was performed to confirm the correct patient, procedure, and site. Preparation: A suitable skin site was identified. The patient was prepped and draped in usual sterile fashion. Lidocaine 1% was used for local anesthesia. Catheter: 4 Khmer One-step Yueh catheter. Side: LEFT lower quadrant. Fluid Volume: 4300 ml Color: Clear yellow DISPOSITION: Discarded safely. Complications: None. US/US paracentesis abd w [id number] IMPRESSION: Uncomplicated ultrasound-guided paracentesis. Removal of 4300 cc
--- NOTE | 2024-09-17 10:03 | PC.PHAR ---
was last seen a couple days ago, meds are all still current at this time
[2024-09-17 10:05] VITALS: BP 135/88; PULSE 95; RESP 20; O2SAT 97
--- NOTE | 2024-09-17 10:05 | XR_ITS ---
WS: [id number] Portable AP upright chest, 09/17/2024 Clinical Data: sob Comparison: Portable chest, 09/10/2024 Findings: No nodules, masses or effusions are seen. The heart is normal. The pulmonary vascularity is not increased. No pneumonia or pneumothorax is seen. The aortic arch shows tortuosity. XR/XR chest 1V portable [id number] Impression: Atherosclerosis.
[2024-09-17 10:25] LABS: Basophils % 0.4 %; Eosinophils # 0.2 10^3/uL (0.0-0.8); Eosinophils % 3.2 %; Hematocrit 39.7 % (37-53); Lymphocytes # 0.8 10^3/uL (0.8-4.8); Lymphocytes % 10.8 %; Mean Corpuscular HGB Conc 32.5 g/dL (30-55); Mean Corpuscular Hemoglobin 32.2 pg (27-33); Mean Platelet Volume 10.7 fL (7.4-10.4); Monocytes # 0.7 10^3/uL (0.2-0.9); Monocytes % 9.7 %; Neutrophils # 5.44 10^3/uL (1.8-7.7); Neutrophils % 75.5 %; Nucleated Red Blood Cells % 0 %; Platelet Count 176 10^3/cmm (157-399); Red Blood Count 4.01 10^6/uL (3.85-5.65); Red Cell Distribution Width 14.6 % (12.1-15.1); White Blood Count 7.21 10^3/uL (3.29-11.43)
[2024-09-17 10:42] LABS: Alanine Aminotransferase 74 U/L (0-41); Alkaline Phosphatase 259 U/L (40-130); Anion Gap 12.1 (5-19); Aspartate Amino Transferase 222 U/L (0-40); Blood Urea Nitrogen 15 mg/dL (8-23); Calcium 8.8 mg/dL (8.5-10.5); Carbon Dioxide 29 mmol/L (22-29); Chloride 100 mmol/L (98-107); Globulin 3.5 g/dL (1.3-4.6); Glomerular Filtration Rate 112.1 mL/min (90-130); Glucose 123 mg/dL (65-115); Lipase 44 U/L (13-60); Osmolality Calculated 286 mOsm/kg (285-295); Potassium 4.1 mmol/L (3.5-5.1); Sodium 137 mmol/L (136-145); Total Bilirubin 1.6 mg/dL (0.15-1.2); Total Protein 6.5 g/dL (6.6-8.7)
--- NOTE | 2024-09-17 11:35 | ECG_ITS ---
[facility] Date: 2024-09-17 Pat Name: Ned Sherwood Department: Room: Gender: Male Glass Grinder: : 1955 Requested By: Jenniffer Singh Order Number: [id number] Parish MD: SANJAY MCGUIRE Measurements Intervals [place] Rate: 99 P: 79 TX: 165 QRS: 75 QRSD: 96 T: 62 QT: 345 QTc: 443 Interpretive Statements SINUS RHYTHM Compared to ECG 09/10/2024 22:03:26 Sinus tachycardia no longer present Myocardial infarct finding no longer present Electronically Signed On 09-17-2024 19:29:12 IRONER by SANJAY MCGUIRE [email or web address]
[2024-09-17 11:45] VITALS: BP 148/92; PULSE 94; O2SAT 99
--- NOTE | 2024-09-17 11:59 | PC.NURSE ---
A TOTAL OF 4250 ML OF PERITONEAL FLUID REMOVED, CATHETER REMOVED, BANDAGE APPLIED.
[2024-09-17 12:14] VITALS: BP 157/108; PULSE 99; O2SAT 98
== END 2024-09-17 12:15 | disposition home or self-care (01) ==
PROVIDERS: Emergency Provider Physician Assistant; PCP Family Medicine Adult Medicine
DX: K70.31 Alcoholic cirrhosis of liver with ascites (principal); Z87.891 Personal history of nicotine dependence; J44.9 Chronic obstructive pulmonary disease, unspecified; I10 Essential (primary) hypertension
CPT/HCPCS: 49083; 71045; 80053; 83690; 85025; 93005; 99285

== ENCOUNTER 2024-09-20 09:58 | Emergency (ER) | payer MEDICARE, MEDICAID, SELFPAY ==
--- NOTE | 2024-09-20 10:06 | ECG_ITS ---
[facility] 2024-09-20 Pat Name: Ned Sherwood Department: Room: Gender: Male Technical Clerk: : 1955 Requested By: Corey Mead Order Number: [id number] Parish MD: Mariano Barry M.D. Measurements Intervals [place] Rate: 102 P: 63 MN: 136 QRS: 62 QRSD: 87 T: 60 QT: 337 QTc: 439 Interpretive Statements SINUS TACHYCARDIA SEPTAL MYOCARDIAL INFARCTION , PROBABLY OLD [40+ ms Q WAVE IN V1/V2] Compared to ECG 09/17/2024 09:29:45 Myocardial infarct finding now present Sinus rhythm no longer present Electronically Signed On 09-20-2024 13:49:41 WEEKEND ANCHOR by Mariano Barry M.D. [email or web address]
[2024-09-20 10:07] VITALS: BP 135/91; PULSE 102; RESP 18; TEMP 36.7; O2SAT 96
--- NOTE | 2024-09-20 10:08 | XRR_ITS ---
PROCEDURE INFORMATION: Exam: XR Chest Exam date and time: 09/20/2024 10:22 AM Age: 68 years old Clinical indication: Shortness of breath; Additional info: SOB TECHNIQUE: Imaging protocol: Radiologic exam of the chest. Views: 1 view. COMPARISON: CR XR chest 1V portable [id number] 09/17/2024 10:12 AM FINDINGS: Lungs: Unremarkable. No consolidation. Pleural spaces: Unremarkable. No pleural effusion. No pneumothorax. Heart/Mediastinum: Unremarkable. No cardiomegaly. Bones/joints: Unremarkable. XR/XR chest 1V portable [id number] IMPRESSION: No acute findings.
--- NOTE | 2024-09-20 10:11 | ED_ITS ---
HPI - General Adult 2 General: Chief complaint: Shortness of Breath/Dyspnea Stated complaint: fluid on lungs SOB Time Seen by Provider: 09/20/24 10:03 Source: patient Mode of arrival: ambulatory Limitations: no limitations History of Present Illness: 68-year-old male history of alcoholism w ith cirrhosis states that he feels like he is little fluid overloaded is having some slight dyspnea he had had a paracentesis 2 days ago he denies any fever denies any vomiting he is in no distress here. Associated symptoms: Reports dyspnea; Deny chest pain, headache(s), nausea, rash or vomiting Related Data Home Medications Medication Instructions Recorded Confirmed ondansetron 4 mg disintegrating 4 mg PO Q8H PRN Nausea And Vomiting 09/11/24 09/17/24 tablet pantoprazole 40 mg tablet,delayed 40 mg PO DAILY 09/11/24 09/17/24 release triamcinolone acetonide 0.5 % 1 applic topical BID PRN Skin 09/15/24 09/17/24 topical cream Irritation Previous Rx's Medication Instructions Recorded albuterol sulfate 90 mcg/actuation 2 puff inhalation Q4H PRN 02/02/24 aerosol inhaler shortness of breath or wheezing #8.5 grams amlodipine 5 mg tablet 5 mg PO DAILY blood pressure #30 02/02/24 tabs lisinopril 20 mg tablet 20 mg PO QAM blood pressure #30 02/02/24 tabs tadalafil 5 mg tablet (Cialis) 2.5 mg (1/2 x 5 mg) PO DAILY PRN 06/26/24 sexual activity #30 tabs folic acid 1 mg tablet 1 mg PO DAILY 30 days #30 tabs 09/14/24 lactulose 20 gram/30 mL oral 20 g (30 mL) PO Q12H PRN 09/14/24 solution constipation 7 days #420 mL multivitamin with folic acid 400 1 tab PO DAILY 30 days #30 tabs 09/14/24 mcg tablet (Thera) polyethylene glycol 3350 17 gram 17 g PO DAILY 30 days #30 ea 09/14/24 oral powder packet thiamine mononitrate (vit B1) 100 100 mg PO DAILY 30 days #30 tabs 09/14/24 mg tablet (Vitamin B-1 (mononitrate)) spironolactone 25 mg tablet 25 mg PO DAILY #30 tabs 09/15/24 Allergies Allergy/AdvReac Type Severity Reaction Status Date / Time aspirin Allergy Intermediate Unknown Verified 09/17/24 08:49 Review of Systems 2 Const: Denies: fever(s), chills, body aches or change in appetite ENMT: Denies: throat pain or dental pain Card: Denies: chest pain Resp: Reports: dyspnea GI: Denies: nausea, vomiting or diarrhea Musc: Denies: neck pain or back pain Skin/Breast: Denies: rash Neuro: Denies: headache(s) PFSH ED 2 PFSH: Medical History Alcoholic cirrhosis Gynecomastia, male GERD (gastroesophageal reflux disease) Sexual dysfunction Alcohol dependence Psoriasis Smoker unmotivated to quit Hypertension COPD (chronic obstructive pulmonary disease) Surgical History History of repair of laceration Family History Mother Cancer stomach Denies family history of Anesthesia complication Bleeding disorder Social History Smoking and tobacco/nicotine status: former use of tobacco/nicotine Alcohol intake: current Alcohol intake frequency: few times a week Substance/Drug Use: never Lives independently: Yes Marital status: Single Number of children: 3 Number of grandchildren: 3 service: No Current occupational status: retired and disabled Physical Exam 2 Const: COMMON NORMALS: patient oriented x3 HENMT: COMMON NORMALS: normocephalic and atraumatic HEAD & SCALP: n ormocephalic and atraumatic Eye: COMMON NORMALS: conjunctivae normal CONJUNCTIVA: Yes conjunctivae normal Neck/C-Spine: COMMON NORMALS: full ROM and supple Chest: COMMONS NORMALS: normal inspection of the chest Resp: COMMON NORMALS: normal respiratory effort, No retractions, No use of accessory muscles and clear to auscultation bilaterally AUSCULTATION: clear to auscultation bilaterally Cardio: COMMON NORMALS: regular rate, regular rhythm and No murmurs present (Cardio) RATE: regular rate RHYTHM: regular rhythm GI: COMMON NORMALS: Soft to palpation, non-tender and no masses PALPATION: Yes Soft to palpation OTHER: distended abd Extremity: COMMON NORMALS: normal to inspection and full ROM Neuro: COMMON NORMALS: patient oriented x3, moves all extremities and no focal motor deficits Psych: COMMON NORMALS: mental status grossly normal, Normal thought process present and cooperative THOUGHT PROCESS: Normal thought process present Skin: COMMON NORMALS: no rashes or lesions noted and no wounds GENERAL SKIN EXAM: no rashes or lesions noted Course 2 Vital Signs: Vital signs: Vital Signs Temperature 98.1 F 09/20/24 10:07 Pulse Rate 102 H 09/20/24 10:07 Respiratory Rate 18 09/20/24 10:07 Blood Pressure 135/91 09/20/24 10:07 Pulse Oximetry 96 09/20/24 10:07 Oxygen Delivery Me thod Room Air 09/20/24 10:07 MDM - General Adult Medical Decision Making Patient presents for some dyspnea he is well-appearing here in no respiratory distress abdomen is distended but not firm not causing any respiratory issues no signs of SBP his blood works normal he stable for discharge follow-up with PCP return if worsening. Medical Records I reviewed the patient's medical records. Lab Data I reviewed the patient's lab results. 09/20/24 10:15 09/20/24 10:15 Radiology Impressions Chest X-Ray 09/20/24 10:08 IMPRESSION: No acute findings. Laboratory Results WBC 8.20 10^3/uL (3.29-11.43) 09/20/24 10:15 RBC 4.34 10^6/uL (3.85-5.65) 09/20/24 10:15 Hgb 13.90 g/dL (11.27-16.99) 09/20/24 10:15 Hct 43.9 % (37-53) 09/20/24 10:15 MCV 101.2 fl (82-101) H 09/20/24 10:15 MCH 32.0 pg (27-33) 09/20/24 10:15 MCHC 31.7 g/dL (30-55) 09/20/24 10:15 RDW 14.5 % (12.1-15.1) 09/20/24 10:15 Plt Count 189 10^3/cmm (157-399) 09/20/24 10:15 MPV 10.2 fL (7.4-10.4) 09/20/24 10:15 Neut % (Auto) 78.9 % 09/20/24 10:15 Lymph % (Auto) 7.3 % 09/20/24 10:15 [place] % (Auto) 11.8 % 09/20/24 10:15 Eos % (Auto) 1.2 % 09/20/24 10:15 Baso % (Auto) 0.2 % 09/20/24 10:15 Neut # (Auto) 6.46 10^3/uL (1.8-7.7) 09/20/24 10:15 Lymph # (Auto) 0.6 10^3/uL (0.8-4.8) L 09/20/24 10:15 [place] # (Auto) 1.0 10^3/uL (0.2-0.9) H 09/20/24 10:15 Eos # (Auto) 0.1 10^3/uL (0.0-0.8) 09/20/24 10:15 Baso # (Auto) 0.0 10^3/uL (0.0-0.1) 09/20/24 10:15 Nucleated RBC % (auto) 0 % 09/20/24 10:15 Nucleated RBCs # 0.0 /100WBC 09/20/24 10:15 Sodium 137 mmol/L (136-145) 09/20/24 10:15 Potassium 4.6 mmol/L (3.5-5.1) 09/20/24 10:15 Chloride 100 mmol/L (98-107) 09/20/24 10:15 Carbon Dioxide 28 mmol/L (22-29) 09/20/24 10:15 Anion Gap 13.6 (5-19) 09/20/24 10:15 BUN 20 mg/dL (8-23) 09/20/24 10:15 Creatinine 0.8 mg/dL (0.7-1.2) 09/20/24 10:15 GFR Calculation 96.1 mL/min (90-130) 09/20/24 10:15 Glucose 126 mg/dL (65-115) H 09/20/24 10:15 Calculated Osmolality 288 mOsm/kg (285-295) 09/20/24 10:15 Calcium 8.8 mg/dL (8.5-10.5) 09/20/24 10:15 Total Bilirubin 2.4 mg/dL (0.15-1.2) H 09/20/24 10:15 AST 351 U/L (0-40) H 09/20/24 10:15 ALT 114 U/L (0-41) H 09/20/24 10:15 Alkaline Phosphatase 308 U/L (40-130) H 09/20/24 10:15 NT-Pro-B Natriuret Pep 102 pg/mL (0-125) 09/20/24 10:15 Total Protein 6.8 g/dL (6.6-8.7) 09/20/24 10:15 Albumin 3.1 g/dL (3.5-5.2) L 09/20/24 10:15 Globulin 3.7 g/dL (1.3-4.6) 09/20/24 10:15 All radiology interpretation(s) finalized by discharge EKG Data EKG 1: I personally reviewed and interpreted this EKG as follows: EKG interpretation date: 09/20/24 EKG interpretation time: 10:06 Interpretation: sinus tach hr [address] elevation qrs 87 qtc 396 Computer generated interpretation: Chest X-Ray 09/20/24 10:08 IMPRESSION: No acute findings. Discharge Plan Discharge Patient Disposition: Home Clinical Impression: Ascites due to alcoholic cirrhosis, Dyspnea Condition: Stable Prescriptions: No Action amlodipine 5 mg tablet 5 mg PO DAILY Qty: 30 5RF lisinopril 20 mg tablet 20 mg PO QAM Qty: 30 5RF Rx Instructions: 340 B medications albuterol sulfate 90 mcg/actuation HFA aerosol inhaler 2 puff inhalation Q4H PRN (Reason: shortness of breath or wheezing) Qty: 8.5 3RF Rx Instructions: 340 B medications tadalafil [Cialis] 5 mg tablet 2.5 mg PO DAILY PRN (Reason: sexual activity) Qty: 30 1RF triamcinolone acetonide 0.5 % cream 1 applic topical BID PRN (Reason: Skin Irritation) spironolactone 25 mg tablet 25 mg PO DAILY Qty: 30 0RF ondansetron 4 mg tablet,disintegrating 4 mg PO Q8H PRN (Reason: Nausea And Vomiting) pantoprazole 40 mg tablet,delayed release (DR/EC) 40 mg PO DAILY folic acid 1 mg Tablet 1 mg PO DAILY 30 Days Qty: 30 0RF lactulose 20 gram/30 mL Solution 20 g PO Q12H PRN (Reason: constipation) 7 Days Qty: 420 0RF multivitamin with folic acid [Thera] 400 mcg Tablet 1 tab PO DAILY 30 Days Qty: 30 0RF polyethylene glycol 3350 17 gram Powder In Packet 17 g PO DAILY 30 Days Qty: 30 0RF thiamine mononitrate (vit B1) [Vitamin B-1 (mononitrate)] 100 mg Tablet 100 mg PO DAILY 30 Days Qty: 30 0RF Discharge Orders: Discharge ED (Routine); Ordered 09/20/24 Ordered By: Corey Mead Referrals: Karlos Gallardo MD [Primary Care Provider] - 4-7 days Discharge Diet: Advance as tolerated Discharge Activity: Resume usual activity Patient Instructions: Ascites (ED) Coding Level of Care Code ED [place] Safety Engineer for Orlando Corrales
[2024-09-20 10:20] LABS: Basophils % 0.2 %; Eosinophils # 0.1 10^3/uL (0.0-0.8); Eosinophils % 1.2 %; Hematocrit 43.9 % (37-53); Lymphocytes # 0.6 10^3/uL (0.8-4.8); Lymphocytes % 7.3 %; Mean Corpuscular HGB Conc 31.7 g/dL (30-55); Mean Corpuscular Volume 101.2 fl (82-101); Mean Platelet Volume 10.2 fL (7.4-10.4); Monocytes % 11.8 %; Neutrophils # 6.46 10^3/uL (1.8-7.7); Neutrophils % 78.9 %; Nucleated Red Blood Cells % 0 %; Platelet Count 189 10^3/cmm (157-399); Red Blood Count 4.34 10^6/uL (3.85-5.65); Red Cell Distribution Width 14.5 % (12.1-15.1)
[2024-09-20] MEDS: FUROsemide 10 mg/mL SDV 10mL 60 MG IVP (10:31)
[2024-09-20 10:45] LABS: Alanine Aminotransferase 114 U/L (0-41); Albumin Level 3.1 g/dL (3.5-5.2); Alkaline Phosphatase 308 U/L (40-130); Anion Gap 13.6 (5-19); Aspartate Amino Transferase 351 U/L (0-40); Blood Urea Nitrogen 20 mg/dL (8-23); Calcium 8.8 mg/dL (8.5-10.5); Carbon Dioxide 28 mmol/L (22-29); Chloride 100 mmol/L (98-107); Globulin 3.7 g/dL (1.3-4.6); Glomerular Filtration Rate 96.1 mL/min (90-130); Glucose 126 mg/dL (65-115); NT Pro B Type Natriuretic Pept 102 pg/mL (0-125); Osmolality Calculated 288 mOsm/kg (285-295); Potassium 4.6 mmol/L (3.5-5.1); Sodium 137 mmol/L (136-145); Total Bilirubin 2.4 mg/dL (0.15-1.2); Total Protein 6.8 g/dL (6.6-8.7)
[2024-09-20 11:31] VITALS: BP 136/90; PULSE 102; RESP 19; O2SAT 95
== END 2024-09-20 11:33 | disposition home or self-care (01) ==
PROVIDERS: Emergency Provider Emergency Medicine; PCP Family Medicine Adult Medicine
DX: K70.31 Alcoholic cirrhosis of liver with ascites (principal); R06.00 Dyspnea, unspecified; Z87.891 Personal history of nicotine dependence; J44.9 Chronic obstructive pulmonary disease, unspecified; I10 Essential (primary) hypertension
CPT/HCPCS: 71045; 80053; 83880; 85025; 93005; 96374; 99285; J1940

== ENCOUNTER 2024-09-27 22:55 | Emergency (ER) | payer MEDICARE, MEDICAID, SELFPAY ==
[2024-09-27 23:04] VITALS: BP 89/63; PULSE 97; RESP 18; TEMP 36.6; O2SAT 89; BMI 24.3
--- NOTE | 2024-09-27 23:17 | ECG_ITS ---
[facility] Date: 2024-09-27 Pat Name: Ned Sherwood Department: Room: Gender: Male Project Scheduler: : 1955 Requested By: Savanna Guerrero Order Number: [id number] Lugo MD: Mariano Barry M.D. Measurements Intervals [place] Rate: 92 P: 70 NE: 163 QRS: 66 QRSD: 91 T: 68 QT: 371 QTc: 461 Interpretive Statements SINUS RHYTHM Compared to ECG 09/20/2024 10:06:44 Sinus tachycardia no longer present Myocardial infarct finding no longer present Electronically Signed On 09-28-2024 16:50:49 TAPER AND FLOATER by Mariano Barry M.D. [id number]
--- NOTE | 2024-09-27 23:21 | ED_ITS ---
HPI - Abdominal Pain 2 General: Chief Complaint: Abdominal Pain Stated Complaint: SOB, Epigastric Pain Time Seen by Provider: 09/27/24 23:12 History of Present Illness: 68-year-old man with a history of cirrho sis who presents emergency room with abdominal pain. He says he had a paracentesis yesterday in [place]. He presents with left upper quadrant abdominal pain today. No nausea or vomiting. No fevers. Just focal pain in his left upper quadrant. No shortness of breath. No cough. Related Data Home Medications Medication Instructions Recorded Confirmed ondansetron 4 mg disintegrating 4 mg PO Q8H PRN Nausea And Vomiting 09/11/24 09/20/24 tablet pantoprazole 40 mg tablet,delayed 40 mg PO DAILY 09/11/24 09/20/24 release Previous Rx's Medication Instructions Recorded albuterol sulfate 90 mcg/actuation 2 puff inhalation Q4H PRN 02/02/24 aerosol inhaler shortness of breath or wheezing #8.5 grams amlodipine 5 mg tablet 5 mg PO DAILY blood pressure #30 02/02/24 tabs lisinopril 20 mg tablet 20 mg PO QAM blood pressure #30 02/02/24 tabs tadalafil 5 mg tablet (Cialis) 2.5 mg (1/2 x 5 mg) PO DAILY PRN 06/26/24 sexual activity #30 tabs folic acid 1 mg tablet 1 mg PO DAILY 30 days #30 tabs 09/14/24 multivitamin with folic acid 400 1 tab PO DAILY 30 days #30 tabs 09/14/24 mcg tablet (Thera) polyethylene glycol 3350 17 gram 17 g PO DAILY 30 days #30 ea 09/14/24 oral powder packet thiamine mononitrate (vit B1) 100 100 mg PO DAILY 30 days #30 tabs 09/14/24 mg tablet (Vitamin B-1 (mononitrate)) spironolactone 25 mg tablet 25 mg PO DAILY #30 tabs 09/15/24 Allergies Allergy/AdvReac Type Severity Reaction Status Date / Time aspirin Allergy Intermediate Unknown Verified 09/27/24 23:10 Review of Systems 2 Narrative: Constitutional symptoms: Negative except as documented in HPI. Skin symptoms: Negative except as documented in HPI. Eye symptoms: Negative except as documented in HPI. ENMT symptoms: Negative except as documented in HPI. Respiratory symptoms: Negative except as documented in HPI. Cardiovascular symptoms: Negative except as documented in HPI. Gastrointestinal symptoms: Negative except as documented in HPI. Genitourinary symptoms: Negative except as documented in HPI. Musculoskeletal symptoms: Negative except as documented in HPI. Neurologic symptoms: Negative except as documented in HPI. Psychiatric symptoms: Negative except as documented in HPI. Endocrine symptoms: Negative except as documented in HPI. PFSH ED 2 PFSH: Medical History Alcoholic cirrhosis Gynecomastia, male GERD (gastroesophageal reflux disease) Sexual dysfunction Alcohol dependence Psoriasis Smoker unmotivated to quit Hypertension COPD (chronic obstructive pulmonary disease) Surgical History History of repair of laceration Family History Mother Cancer stomach Denies family history of Anesthesia complication Bleeding disorder Social History Smoking and tobacco/nicotine status: former use of tobacco/nicotine Alcohol intake: current Alcohol intake frequency: few times a week Substance/Drug Use: never Lives independently: Yes Marital status: Single Number of children: 3 Number of grandchildren: 3 service: No Current occupational status: retired and disabled Physical Exam 2 Narrative: EXAM NARRATIVE: General: Alert, no acute distress. Skin: Warm, dry. Head: Normocephalic, atraumatic. Neck: Supple, trachea midline. Eye: Extraocular movements are intact. Ears, nose, mouth and throat: mucosa moist. Cardiovascular: Regular, Normal peripheral perfusion. Respiratory: Lungs are clear to auscultation, respirations are non-labored, breath sounds are equal, Symmetrical chest wall expansion. Gastrointestinal: Abdomen is soft and mildly distended. Some pain in the left upper quadrant to palpation. Musculoskeletal: Normal ROM, no deformity. Neurological: Alert and oriented, No focal neurological deficit observed. Psychiatric: Cooperative, appropriate mood & affect. Course 2 Vital Signs: Vital signs: Vital Signs Temperature 97.9 F 09/27/24 23:04 Pulse Rate 83 09/28/24 01:00 Respiratory Rate 20 H 09/28/24 01:00 Blood Pressure 97/61 09/28/24 01:00 Pulse Oximetry 90 09/28/24 01:00 Oxygen Delivery Me thod Nasal Cannula 09/28/24 01:00 Oxygen Flow Rate 2 09/28/24 01:00 MDM - Abdominal Pain Medical Decision Making Lab Review: Laboratory results were reviewed and interpreted by myself the emergency room physician. White count is 10. Hemoglobin 13. BUN and creatinine are 30 and 1.8. These are all near his baseline. Sodium is little low at 127 which is also usually hyponatremic. Urinalysis is negative for infection. His lipase is [address] of the abdomen pelvis: Cirrhotic liver, ascites, enlarged prostate. No bowel obstructions. No signs of infection. This was reviewed and interpreted by myself the emergency room physician. I also reviewed the radiology report. I reviewed the patient's medical record. Reexamination: Patient remained stable. No increased work of breathing. No altered mental status. No focal motor deficits. Assessment and plan: Abdominal pain Cirrhosis ?P.o. Ingram in the emergency room. Follow with primary - Discharged home - Discussed findings and plan with patient. Answered any questions. - All laboratory values were reviewed and interpreted personally by myself, the ER physician - All imaging was reviewed and interpreted personally by myself, the ER physician. - Evaluation and treatment of this problem were appropriate in the emergency setting Lab Data 09/27/24 22:29 09/27/24 22: Labs/Radiology: Radiology Impressions Abdomen/Pelvis CT 09/28/24 00:46 IMPRESSION: 1. Cirrhotic liver. Moderate amount of abdominal ascites. 2. The prostate gland is enlarged protruding through the floor of the bladder. Correlate with PSA. 3. No bowel obstruction. Laboratory Results WBC 10.63 10^3/uL (3.29-11.43) 09/27/24 22: RBC 4.15 10^6/uL (3.85-5.65) 09/27/24: Hgb 13.60 g/dL (11.27-16.99) 09/27/24: Hct 41.0 % (37-53) 09/27/24 22: MCV 98.8 fl (82-101) 09/27/24: MCH 32.8 pg (27-33) 09/27/24: MCHC 33.2 g/dL (30-55) 09/27/24: RDW 14.0 % (12.1-15.1) 09/27/24 22:29 Plt Count 192 10^3/cmm (157-399) 09/27/24 22: MPV 11.0 fL (7.4-10.4) H 09/27/24 22:29 Neut % (Auto) 73.2 % 09/27/24 22: Lymph % (Auto) 12.5 % 09/27/24 22: [place] % (Auto) 12.1 % 09/27/24 22:29 Eos % (Auto) 1.3 % 09/27/24 22:29 Baso % (Auto) 0.2 % 09/27/24 22: Neut # (Auto) 7.78 10^3/uL (1.8-7.7) H 09/27/24 22: Lymph # (Auto) 1.3 10^3/uL (0.8-4.8) 09/27/24 22: [place] # (Auto) 1.3 10^3/uL (0.2-0.9) H 09/27/24 22:29 Eos # (Auto) 0.1 10^3/uL (0.0-0.8) 09/27/24 22: Baso # (Auto) 0.0 10^3/uL (0.0-0.1) 09/27/24 22: Nucleated RBC % (auto) 0 % 09/27/24 22: Nucleated RBCs # 0.0 /100WBC 09/27/24 22: Sodium 127 mmol/L (136-145) L 09/27/24 22: Potassium 4.1 mmol/L (3.5-5.1) 09/27/24 22: Chloride 86 mmol/L (98-107) L 09/27/24 22: Carbon Dioxide 32 mmol/L (22-29) H 09/27/24 22: Anion Gap 13.1 (5-19) 09/27/24 22:29 BUN 30 mg/dL (8-23) H 09/27/24 22:29 Creatinine 1.8 mg/dL (0.7-1.2) H 09/27/24 22:29 GFR Calculation 37.7 mL/min (90-130) L 09/27/24 22:29 Glucose 126 mg/dL (65-115) H 09/27/24 22:29 Calculated Osmolality 272 mOsm/kg (285-295) L 09/27/24 22:29 Lactic Acid 2.5 mmol/L (0.5-2.2) H 09/27/24 22: Lactic Acid (Sepsis) 1.8 mmol/L (0.5-2.2) 09/28/24 01:34 Calcium 9.0 mg/dL (8.5-10.5) 09/27/24 22:29 Total Bilirubin 1.4 mg/dL (0.15-1.2) H 09/27/24 22:29 AST 306 U/L (0-40) H 09/27/24 22: ALT 84 U/L (0-41) H 09/27/24 22: Alkaline Phosphatase 295 U/L (40-130) H 09/27/24 22: Ammonia 66 umol/L (16-60) H 09/27/24 00:01 Troponin T Baseline 39 ng/L (0-15) H 09/27/24 22:29 Troponin T 120 Minute 31.70 ng/L (0-15) H 09/28/24 00:55 Delta Troponin T -7.30 ABS# (0-10) L 09/28/24 00:55 Total Protein 6.5 g/dL (6.6-8.7) L 09/27/24 22: Albumin 3.1 g/dL (3.5-5.2) L 09/27/24 22: Globulin 3.4 g/dL (1.3-4.6) 09/27/24 22: Lipase 45 U/L (13-60) 09/27/24 22:29 Urine Color Dark yellow (Yellow) A 09/27/24 23:49 Urine Appearance Cloudy (CLEAR) A 09/27/24 23:49 Urine pH 5.0 (5-7) 09/27/24 23:49 Ur Specific [place] 1.020 (1.005-1.030) 09/27/24 23:49 Urine Protein 1+ (Negative) A 09/27/24 23:49 Urine Glucose (UA) Negative (Normal) 09/27/24 23:49 Urine Ketones Trace (Negative) 09/27/24 23:49 Urine Blood Negative (Negative) 09/27/24 23:49 Urine Nitrate Negative (Negative) 09/27/24 23:49 Urine Bilirubin 1+ (Negative) H 09/27/24 23:49 Urine Urobilinogen 1.0 mg/dL (Negative) 09/27/24 23:49 Ur Leukocyte Esterase Trace (Negative) A 09/27/24 23:49 Urine RBC 3-5 /hpf (0-2) 09/27/24 23:49 Urine WBC 0-5 /hpf (0-5) 09/27/24 23:49 Ur Squamous Epith Cells 11-20 /hpf (0-5) 09/27/24 23:49 Amorphous Sediment Not Reportable 09/27/24 23:49 Urine Bacteria None seen /hpf (NONE) 09/27/24 23:49 Hyaline Casts 196.53 /lpf 09/27/24 23:49 Urine Mucus 4+ /hpf 09/27/24 23:49 Ethyl Alcohol < 10 mg/dL (0-10) 09/27/24 22:29 All radiology interpretation(s) finalized by discharge Discharge Plan Discharge Patient Disposition: Home Clinical Impression: Abdominal pain, Cirrhosis Condition: Stable Prescriptions: No Action amlodipine 5 mg tablet 5 mg PO DAILY Qty: 30 5RF lisinopril 20 mg tablet 20 mg PO QAM Qty: 30 5RF Rx Instructions: 340 B medications albuterol sulfate 90 mcg/actuation HFA aerosol inhaler 2 puff inhalation Q4H PRN (Reason: shortness of breath or wheezing) Qty: 8.5 3RF Rx Instructions: 340 B medications tadalafil [Cialis] 5 mg tablet 2.5 mg PO DAILY PRN (Reason: sexual activity) Qty: 30 1RF spironolactone 25 mg tablet 25 mg PO DAILY Qty: 30 0RF ondansetron 4 mg tablet,disintegrating 4 mg PO Q8H PRN (Reason: Nausea And Vomiting) pantoprazole 40 mg tablet,delayed release (DR/EC) 40 mg PO DAILY folic acid 1 mg Tablet 1 mg PO DAILY 30 Days Qty: 30 0RF multivitamin with folic acid [Thera] 400 mcg Tablet 1 tab PO DAILY 30 Days Qty: 30 0RF polyethylene glycol 3350 17 gram Powder In Packet 17 g PO DAILY 30 Days Qty: 30 0RF thiamine mononitrate (vit B1) [Vitamin B-1 (mononitrate)] 100 mg Tablet 100 mg PO DAILY 30 Days Qty: 30 0RF Discharge Orders: Discharge ED (Routine); Ordered 09/28/24 Ordered By: Savanna Mcghee Referrals: Karlos Gallardo MD [Primary Care Provider] - Patient Instructions: Abdominal Pain (ED), Opioid Safety, Pain Management Activity Restrictions/Additional Instructions: Thank you for choosing [facility] for your healthcare needs today. Please realize this is an emergency room and that we are providing you with a medical screening exam and this may not be complete and all inclusive of all the testing and or work up that you may need to determine your ailment or severity of your illness. You have been screened and evaluated and felt safe for discharge. Health conditions do change or evolve sometimes and as such it is important that you follow up with your Primary Doctor to be re checked, 3-5 days is a general good time frame for follow up. You are always welcome to return to the ED for re assessment if your symptoms are worsening or you have new concerns Coding Level of Care Code ED Firewall Security Engineer for Orlando Corrales
[2024-09-27 23:28] LABS: Basophils % 0.2 %; Eosinophils # 0.1 10^3/uL (0.0-0.8); Eosinophils % 1.3 %; Lymphocytes # 1.3 10^3/uL (0.8-4.8); Lymphocytes % 12.5 %; Mean Corpuscular HGB Conc 33.2 g/dL (30-55); Mean Corpuscular Hemoglobin 32.8 pg (27-33); Mean Corpuscular Volume 98.8 fl (82-101); Monocytes # 1.3 10^3/uL (0.2-0.9); Monocytes % 12.1 %; Neutrophils # 7.78 10^3/uL (1.8-7.7); Neutrophils % 73.2 %; Nucleated Red Blood Cells % 0 %; Platelet Count 192 10^3/cmm (157-399); Red Blood Count 4.15 10^6/uL (3.85-5.65); White Blood Count 10.63 10^3/uL (3.29-11.43)
[2024-09-27 23:38] VITALS: BP 81/46; PULSE 96; RESP 13; O2SAT 97
[2024-09-27 23:39] LABS: Troponin(5th) Baseline 39 ng/L (0-15)
[2024-09-27 23:41] LABS: Lactic Sepsis W/Reflex 2.5 mmol/L (0.5-2.2)
[2024-09-27 23:44] LABS: Alanine Aminotransferase 84 U/L (0-41); Albumin Level 3.1 g/dL (3.5-5.2); Alkaline Phosphatase 295 U/L (40-130); Aspartate Amino Transferase 306 U/L (0-40); Blood Urea Nitrogen 30 mg/dL (8-23); Carbon Dioxide 32 mmol/L (22-29); Chloride 86 mmol/L (98-107); Creatinine Clr Calc Pharmacy 40.1984; Globulin 3.4 g/dL (1.3-4.6); Glomerular Filtration Rate 37.7 mL/min (90-130); Glucose 126 mg/dL (65-115); Lipase 45 U/L (13-60); Osmolality Calculated 272 mOsm/kg (285-295); Sodium 127 mmol/L (136-145); Total Bilirubin 1.4 mg/dL (0.15-1.2); Total Protein 6.5 g/dL (6.6-8.7)
[2024-09-27 23:54] LABS: Alcohol Level < 10 mg/dL (0-10); Anion Gap 13.1 (5-19); Potassium 4.1 mmol/L (3.5-5.1)
[2024-09-28 00:07] LABS: Bacteria Urine None Seen /hpf; Hyaline Casts Urine 196.53 /lpf; WBC Urine 0-5 /hpf (0-5)
[2024-09-28 00:09] LABS: Bilirubin Urine 1+ (Negative); Blood Urine Negative (Negative); Glucose Urine UA Negative (Normal); Ketones Urine Trace (Negative); Leukocyte Esterase Urine Trace (Negative); Nitrate Urine Negative (Negative); Protein Urine 1+ (Negative); Urine Color Dark Yellow (Yellow)
[2024-09-28 00:22] LABS: UA Slide Review UA Slide Review Perf; Urine Appearance Cloudy (CLEAR)
[2024-09-28 00:23] LABS: Mucus Urine 4+ /hpf
[2024-09-28 00:30] LABS: Ammonia 66 umol/L (16-60)
[2024-09-28 00:41] VITALS: BP 102/62; PULSE 93; RESP 12; O2SAT 96
--- NOTE | 2024-09-28 00:46 | CTR_ITS ---
PROCEDURE INFORMATION: Exam: CT Abdomen And Pelvis Without Contrast Exam date and time: 09/28/2024 1:20 AM Age: 68 years old Clinical indication: Abdominal tenderness; Prior surgery; Surgery date: Post-operative (0-2 days); Surgery type: Paracentesis; Additional info: Abdominal pain TECHNIQUE: Imaging protocol: Computed tomography of the abdomen and pelvis without contrast. Radiation optimization: All CT scans at this facility use at least one of these dose optimization techniques: automated exposure control; mA and/or kV adjustment per patient size (includes targeted exams where dose is matched to clinical indication); or iterative reconstruction. COMPARISON: CT chest abdpel w/*[id number] 09/10/2024 10:21 PM RADIATION DOSE METRICS: Total DLP (mGy-cm): 571.63 FINDINGS: Coronary arteries: Coronary arterial atherosclerotic calcifications are present. Liver: Cirrhotic liver. Gallbladder and biliary ducts: Normal. No calcified stones. No ductal dilation. Pancreas: Normal. No ductal dilation. Spleen: The spleen is enlarged measuring up to 15.6 cm in length. Adrenal glands: Normal. No mass. Kidneys and ureters: Normal. No hydronephrosis. Stomach and bowel: Unremarkable. No obstruction. No mucosal thickening. Appendix: No evidence of appendicitis. Intraperitoneal space: Unremarkable. No free air. No significant fluid collection. Vasculature: Severe atherosclerotic disease of the abdominal aorta and iliac arteries Lymph nodes: Unremarkable. No enlarged lymph nodes. Urinary bladder: Unremarkable as visualized. Reproductive: The prostate gland is enlarged protruding through the floor of the bladder. Correlate with PSA. Bones/joints: Unremarkable. No acute fracture. Soft tissues: Unremarkable. CT/CT abdomen pelvis con [id number] IMPRESSION: 1. Cirrhotic liver. Moderate amount of abdominal ascites. 2. The prostate gland is enlarged protruding through the floor of the bladder. Correlate with PSA. 3. No bowel obstruction.
[2024-09-28 01:00] VITALS: BP 97/61; PULSE 83; RESP 20; O2SAT 90
[2024-09-28 01:10] LABS: Reflex Lactate Order REFLEX LACTIC ORDERD
--- NOTE | 2024-09-28 01:17 | ECG_ITS ---
[facility] Test Date: 2024-09-28 Pat Name: Ned Sherwood Department: Room: Gender: Male Analytic Programmer: : 1955 Requested By: Savanna Guerrero Order Number: [id number] Lugo MD: Mariano Barry M.D. Measurements Intervals [place] Rate: 94 P: 66 ID: [id number] QRS: 45 QRSD: 90 T: 69 QT: 361 QTc: 453 Interpretive Statements SINUS RHYTHM Compared to ECG 09/27/2024 23:51:19 No significant changes Electronically Signed On 09-28-2024 16:57:52 MATERIAL CHASER by Mariano Barry M.D. [id number]
--- NOTE | 2024-09-28 01:40 | XRR_ITS ---
PROCEDURE INFORMATION: Exam: XR Chest Exam date and time: 09/28/2024 1:45 AM Age: 68 years old Clinical indication: Shortness of breath TECHNIQUE: Imaging protocol: Radiologic exam of the chest. Views: 1 view. COMPARISON: CR (CHEST, ) 09/20/2024 10:22 AM FINDINGS: Lungs: No consolidation. Stable small calcified nodule in the lower lobe. Pleural spaces: No pleural effusion. No pneumothorax. Heart/Mediastinum: No cardiomegaly. Bones/joints: No acute findings. XR/XR chest 1V portable [id number] IMPRESSION: No acute chest findings.
[2024-09-28 01:54] LABS: Lactic Acid level (Lactate) 1.8 mmol/L (0.5-2.2)
[2024-09-28 03:08] VITALS: BP 95/64; PULSE 99; RESP 20; O2SAT 93
[2024-09-28] MEDS: HYDROcodone-acetaminophen 5-325 mg Tablet 1 TAB PO (03:18)
== END 2024-09-28 03:22 | disposition home or self-care (01) ==
PROVIDERS: Emergency Provider Emergency Medicine; PCP Family Medicine Adult Medicine
DX: R10.9 Unspecified abdominal pain (principal); K74.60 Unspecified cirrhosis of liver; Z87.891 Personal history of nicotine dependence; J44.9 Chronic obstructive pulmonary disease, unspecified; I10 Essential (primary) hypertension
CPT/HCPCS: 36415; 71045; 74176; 80053; 80307; 81001; 82140; 83605; 83690; 84484; 85025; 93005; 99285

== ENCOUNTER 2024-10-01 08:08 | Emergency (ER) | payer MEDICARE, MEDICAID, SELFPAY ==
[2024-10-01 08:19] VITALS: BP 144/88; PULSE 97; RESP 18; TEMP 36.4; O2SAT 98; BMI 25.8
--- NOTE | 2024-10-01 08:21 | ED_ITS ---
HPI - Abdominal Pain 2 General: Chief Complaint: Abdominal Pain Stated Complaint: belly swollen Time Seen by Provider: 10/01/24 08:18 History of Present Illness: 68-year-old male presents emergency room with complaints of abdominal swelling and generalized pain discomfort. Patient has a history of alcoholic liver cirrhosis unfortunately does not her primary care doctor has been coming emergency room multiple times for what amounts to essentially routine paracentesis. Patient is not on any anticoagulants. No fever sweats or chills. Patient reports generalized abdominal pain and ache sense of fullness without any new or sharp pain no fever. Reviewing the chart he last underwent therapeutic paracentesis on September 17, 2024. Associated Symptoms: Denies chills, dysuria and fever(s) Related Data Home Medications Medication Instructions Recorded Confirmed ondansetron 4 mg disintegrating 4 mg PO Q8H PRN Nausea And Vomiting 09/11/24 10/01/24 tablet pantoprazole 40 mg tablet,delayed 40 mg PO DAILY 09/11/24 10/01/24 release albuterol sulfate 2.5 mg/3 mL 2.5 mg continuous nebulization PRN 10/01/24 10/01/24 (0.083 %) solution for nebulization PRN Shortness Of Breath Or Wheezing ciprofloxacin HCl 500 mg tablet 500 mg PO BID 10/01/24 10/01/24 lactulose 10 gram/15 mL oral 30 ml PO BID PRN constipation 10/01/24 10/01/24 solution oxycodone 5 mg tablet 5 mg PO BID PRN Pain 10/01/24 10/01/24 Previous Rx's Medication Instructions Recorded albuterol sulfate 90 mcg/actuation 2 puff inhalation Q4H PRN 02/02/24 aerosol inhaler shortness of breath or wheezing #8.5 grams lisinopril 20 mg tablet 20 mg PO QAM blood pressure #30 02/02/24 tabs tadalafil 5 mg tablet (Cialis) 2.5 mg (1/2 x 5 mg) PO DAILY PRN 06/26/24 sexual activity #30 tabs folic acid 1 mg tablet 1 mg PO DAILY 30 days #30 tabs 09/14/24 multivitamin with folic acid 400 1 tab PO DAILY 30 days #30 tabs 09/14/24 mcg tablet (Thera) polyethylene glycol 3350 17 gram 17 g PO DAILY 30 days #30 ea 09/14/24 oral powder packet thiamine mononitrate (vit B1) 100 100 mg PO DAILY 30 days #30 tabs 09/14/24 mg tablet (Vitamin B-1 (mononitrate)) spironolactone 50 mg tablet 50 mg PO DAILY #30 tabs 10/01/24 Allergies Allergy/AdvReac Type Severity Reaction Status Date / Time aspirin Allergy Intermediate Unknown Verified 09/27/24 23:10 Review of Systems 2 Const: Denies: fever(s) or chills Card: Denies: chest pain Resp: Denies: dyspnea GI: Denies: abdominal pain : Denies: dysuria, urinary frequency or urinary urgency Musc: Denies: neck pain or back pain Skin/Breast: Denies: rash PFSH ED 2 PFSH: Medical History Alcoholic cirrhosis Gynecomastia, male GERD (gastroesophageal reflux disease) Sexual dysfunction Alcohol dependence Psoriasis Smoker unmotivated to quit Hypertension COPD (chronic obstructive pulmonary disease) Surgical History History of repair of laceration Family History Mother Cancer stomach Denies family history of Anesthesia complication Bleeding disorder Social History Smoking and tobacco/nicotine status: former use of tobacco/nicotine Alcohol intake: current Alcohol intake frequency: few times a week Substance/Drug Use: never Lives independently: Yes Marital status: Single Number of children: 3 Number of grandchildren: 3 service: No Current occupational status: retired and disabled Physical Exam 2 Const: COMMON NORMALS: no acute distress GENERAL APPEARANCE: cooperative and comfortable ORIENTATION/CONSCIOUSNESS: Yes awake, Yes oriented to person, Yes oriented to place and Yes oriented to time HENMT: COMMON NORMALS: normocephalic, atraumatic and hearing grossly normal bilaterally HEAD & SCALP: normocephalic and atraumatic Resp: COMMON NORMALS: normal respiratory effort, No retractions, No use of accessory muscles and clear to auscultation bilaterally AUSCULTATION: clear to auscultation bilaterally Cardio: COMMON NORMALS: regular rate, regular rhythm and No murmurs present (Cardio) RATE: regular rate RHYTHM: regular rhythm GI: COMMON NORMALS: Soft to palpation and No hepatosplenomegaly present I NSPECTION: Yes abdominal distension and Yes Fluid wave present AUSCULTATION: Yes normoactive bowel sounds PALPATION: Yes Soft to palpation, No Tenderness to palpation present (GI), No Guarding due to palpation present (GI) and Yes No hepatosplenomegaly present PERCUSSION: dullness to percussion and Fluid wave present Extremity: COMMON NORMALS: normal to inspection, capillary refill normal, no clubbing, cyanosis or edema, no calf tenderness and no pedal edema Neuro: SENSORIUM/ORIENTATION: Yes oriented to person, Yes oriented to place and Yes oriented to time Skin: COMMON NORMALS: no rashes or lesions noted GENERAL SKIN EXAM: no rashes or lesions noted Course 2 Vital Signs: Vital signs: Vital Signs Temperature 97.5 F L 10/01/24 08:19 Pulse Rate 91 10/01/24 11:22 Respiratory Rate 18 10/01/24 08:19 Blood Pressure 127/82 10/01/24 11:22 Pulse Oximetry 97 10/01/24 11:22 Oxygen Delivery Me thod Room Air 10/01/24 10:32 MDM - Abdominal Pain Medical Decision Making Radiology seeing the patient does paracentesis. Patient's symptoms relieved discharge home encouraged him to follow-up with primary care to establish with hepatology to deal with his primary problem. Medical Records I reviewed the patient's medical records. Lab Data I reviewed the patient's lab results. 10/01/24 09:12 10/01/24 09:12 Labs/Radiology: Radiology Impressions Paracentesis Ultrasound 10/01/24 08:36 IMPRESSION: Uncomplicated ultrasound-guided paracentesis. Removal of 2800 cc Laboratory Results WBC 9.26 10^3/uL (3.29-11.43) 10/01/24 09:12 RBC 3.77 10^6/uL (3.85-5.65) L 10/01/24 09:12 Hgb 12.50 g/dL (11.27-16.99) 10/01/24 09:12 Hct 37.5 % (37-53) 10/01/24 09:12 MCV 99.5 fl (82-101) 10/01/24 09:12 MCH 33.2 pg (27-33) H 10/01/24 09:12 MCHC 33.3 g/dL (30-55) 10/01/24 09:12 RDW 13.9 % (12.1-15.1) 10/01/24 09:12 Plt Count 166 10^3/cmm (157-399) 10/01/24 09:12 MPV 10.6 fL (7.4-10.4) H 10/01/24 09:12 Neut % (Auto) 76.0 % 10/01/24 09:12 Lymph % (Auto) 7.9 % 10/01/24 09:12 [place] % (Auto) 14.5 % 10/01/24 09:12 Eos % (Auto) 1.1 % 10/01/24 09:12 Baso % (Auto) 0.1 % 10/01/24 09:12 Neut # (Auto) 7.04 10^3/uL (1.8-7.7) 10/01/24 09:12 Lymph # (Auto) 0.7 10^3/uL (0.8-4.8) L 10/01/24 09:12 [place] # (Auto) 1.3 10^3/uL (0.2-0.9) H 10/01/24 09:12 Eos # (Auto) 0.1 10^3/uL (0.0-0.8) 10/01/24 09:12 Baso # (Auto) 0.0 10^3/uL (0.0-0.1) 10/01/24 09:12 Nucleated RBC % (auto) 0 % 10/01/24 09:12 Nucleated RBCs # 0.0 /100WBC 10/01/24 09:12 PT 15.70 SECONDS (12.1-14.9) H 10/01/24 09:12 INR 1.21 (0.8-1.2) H 10/01/24 09:12 APTT 32.4 SECONDS (23.9-36.7) 10/01/24 09:12 Sodium 126 mmol/L (136-145) L 10/01/24 09:12 Potassium 4.8 mmol/L (3.5-5.1) 10/01/24 09:12 Chloride 90 mmol/L (98-107) L 10/01/24 09:12 Carbon Dioxide 30 mmol/L (22-29) H 10/01/24 09:12 Anion Gap 10.8 (5-19) 10/01/24 09:12 BUN 27 mg/dL (8-23) H 10/01/24 09:12 Creatinine 1.0 mg/dL (0.7-1.2) 10/01/24 09:12 GFR Calculation 74.3 mL/min (90-130) L 10/01/24 09:12 Glucose 124 mg/dL (65-115) H 10/01/24 09:12 Calculated Osmolality 269 mOsm/kg (285-295) L 10/01/24 09:12 Calcium 8.9 mg/dL (8.5-10.5) 10/01/24 09:12 Total Bilirubin 1.8 mg/dL (0.15-1.2) H 10/01/24 09:12 AST 163 U/L (0-40) H 10/01/24 09:12 ALT 104 U/L (0-41) H 10/01/24 09:12 Alkaline Phosphatase 251 U/L (40-130) H 10/01/24 09:12 Total Protein 6.5 g/dL (6.6-8.7) L 10/01/24 09:12 Albumin 2.6 g/dL (3.5-5.2) L 10/01/24 09:12 Globulin 3.9 g/dL (1.3-4.6) 10/01/24 09:12 Lipase 43 U/L (13-60) 10/01/24 09:12 All radiology interpretation(s) finalized by discharge Discharge Plan Discharge Patient Disposition: Home Clinical Impression: Abdominal ascites Alcoholic cirrhosis Qualifiers: Ascites presence: with ascites Qualified Code(s): K70.31 - Alcoholic cirrhosis of liver with ascites Condition: Stable Prescriptions: New spironolactone 50 mg tablet 50 mg PO DAILY Qty: 30 0RF Discontinued spironolactone 25 mg tablet 25 mg PO DAILY Qty: 30 0RF No Action lisinopril 20 mg tablet 20 mg PO QAM Qty: 30 5RF Rx Instructions: 340 B medications albuterol sulfate 90 mcg/actuation HFA aerosol inhaler 2 puff inhalation Q4H PRN (Reason: shortness of breath or wheezing) Qty: 8.5 3RF Rx Instructions: 340 B medications tadalafil [Cialis] 5 mg tablet 2.5 mg PO DAILY PRN (Reason: sexual activity) Qty: 30 1RF albuterol sulfate 2.5 mg /3 mL (0.083 %) solution for nebulization 2.5 mg continuous nebulization PRN PRN (Reason: Shortness Of Breath Or Wheezing) ciprofloxacin HCl 500 mg tablet 500 mg PO BID oxycodone 5 mg tablet 5 mg PO BID PRN (Reason: Pain) lactulose 10 gram/15 mL solution 30 ml PO BID PRN (Reason: constipation ) ondansetron 4 mg tablet,disintegrating 4 mg PO Q8H PRN (Reason: Nausea And Vomiting) pantoprazole 40 mg tablet,delayed release (DR/EC) 40 mg PO DAILY folic acid 1 mg Tablet 1 mg PO DAILY 30 Days Qty: 30 0RF multivitamin with folic acid [Thera] 400 mcg Tablet 1 tab PO DAILY 30 Days Qty: 30 0RF polyethylene glycol 3350 17 gram Powder In Packet 17 g PO DAILY 30 Days Qty: 30 0RF thiamine mononitrate (vit B1) [Vitamin B-1 (mononitrate)] 100 mg Tablet 100 mg PO DAILY 30 Days Qty: 30 0RF Discharge Orders: Discharge ED (Routine); Ordered 10/01/24 Ordered By: Lan Haywood Referrals: Karlos Gallardo MD [Primary Care Provider] - Discharge Activity: Resume usual activity Patient Instructions: Opioid Safety, Pain Management Activity Restrictions/Additional Instructions: Thank you for choosing [facility] for your healthcare needs today. It is very important that you follow up as instructed or that you return to the Emergency Department should you have concerns or if your condition changes or worsens in any way. You were seen emergency room for complaints of swelling in your abdomen the ascites fluid was removed. This fluid is due to the liver cirrhosis. Recommend increasing spironolactone to 50 mg once daily. Also recommend establishing with a primary care physician so you can schedule and to have the paracentesis done on a scheduled outpatient basis rather than in the emergency room. Coding Level of Care Code ED Oil Pipeline Operator for [place] Corrales
--- NOTE | 2024-10-01 08:36 | US_ITS ---
WS: [id number] ULTRASOUND-GUIDED PARACENTESIS CLINICAL INFORMATION: Alcoholic liver cirrhosis COMPARISON: None. Procedure Informed consent: The risks, benefits, and alternatives of the procedure were discussed with the clair ent. Verbal and written consent was obtained. Timeout: A timeout was performed to confirm the correct patient, procedure, and site. Preparation: A suitable skin site was identified. The patient was prepped and draped in usual sterile fashion. Lidocaine 1% was used for local anesthesia. Catheter: 4 [place] One-step PPIeh catheter. Side: RIGHT lower quadrant. Fluid Volume: 2800 ml Color: Clear yellow DISPOSITION: Discarded safely. Complications: None. US/US paracentesis abd w [id number] IMPRESSION: Uncomplicated ultrasound-guided paracentesis. Removal of 2800 cc
--- NOTE | 2024-10-01 09:15 | PC.PHAR ---
Patient was unclear on when he last took his medication . Says his stomach hurt to bad .
[2024-10-01 09:33] LABS: Basophils % 0.1 %; Eosinophils # 0.1 10^3/uL (0.0-0.8); Eosinophils % 1.1 %; Hematocrit 37.5 % (37-53); Lymphocytes # 0.7 10^3/uL (0.8-4.8); Lymphocytes % 7.9 %; Mean Corpuscular HGB Conc 33.3 g/dL (30-55); Mean Corpuscular Hemoglobin 33.2 pg (27-33); Mean Corpuscular Volume 99.5 fl (82-101); Mean Platelet Volume 10.6 fL (7.4-10.4); Monocytes # 1.3 10^3/uL (0.2-0.9); Monocytes % 14.5 %; Neutrophils # 7.04 10^3/uL (1.8-7.7); Nucleated Red Blood Cells % 0 %; Platelet Count 166 10^3/cmm (157-399); Red Blood Count 3.77 10^6/uL (3.85-5.65); Red Cell Distribution Width 13.9 % (12.1-15.1); White Blood Count 9.26 10^3/uL (3.29-11.43)
[2024-10-01 09:49] LABS: Alanine Aminotransferase 104 U/L (0-41); Albumin Level 2.6 g/dL (3.5-5.2); Alkaline Phosphatase 251 U/L (40-130); Anion Gap 10.8 (5-19); Aspartate Amino Transferase 163 U/L (0-40); Blood Urea Nitrogen 27 mg/dL (8-23); Calcium 8.9 mg/dL (8.5-10.5); Carbon Dioxide 30 mmol/L (22-29); Chloride 90 mmol/L (98-107); Creatinine Clr Calc Pharmacy 74.1716; Globulin 3.9 g/dL (1.3-4.6); Glomerular Filtration Rate 74.3 mL/min (90-130); Glucose 124 mg/dL (65-115); Lipase 43 U/L (13-60); Osmolality Calculated 269 mOsm/kg (285-295); Potassium 4.8 mmol/L (3.5-5.1); Sodium 126 mmol/L (136-145); Total Bilirubin 1.8 mg/dL (0.15-1.2); Total Protein 6.5 g/dL (6.6-8.7)
[2024-10-01 09:50] LABS: INR 1.21 (0.8-1.2); Partial Thromboplastin Time 32.4 SECONDS (23.9-36.7)
[2024-10-01 10:18] VITALS: BP 134/84; PULSE 94; O2SAT 97
[2024-10-01 10:32] VITALS: BP 127/82; PULSE 91; O2SAT 98
[2024-10-01 11:22] VITALS: BP 127/82; PULSE 91; O2SAT 97
== END 2024-10-01 11:22 | disposition home or self-care (01) ==
PROVIDERS: Emergency Provider Family Medicine; PCP Family Medicine Adult Medicine
DX: K70.31 Alcoholic cirrhosis of liver with ascites (principal)
CPT/HCPCS: 49083; 80053; 83690; 85025; 85610; 85730; 99284

== ENCOUNTER 2024-10-16 16:09 | Emergency (ER) | payer MEDICARE, MEDICAID, SELFPAY ==
[2024-10-16] VITALS (8 sets, daily range): BP systolic 94–119; BP diastolic 43–78; PULSE 57–91; RESP 18; TEMP 36.6; O2SAT 93–98; BMI 24.3
--- NOTE | 2024-10-16 17:28 | XRR_ITS ---
PROCEDURE INFORMATION: Exam: XR Chest Exam date and time: 10/16/2024 6:05 PM Age: 68 years old Clinical indication: Cough and dyspnea; Additional info: Dyspnea/cough TECHNIQUE: Imaging protocol: Radiologic exam of the chest. Views: 1 view. COMPARISON: CR XR chest 1V portable [id number] 09/28/2024 1:45 AM FINDINGS: Lungs: Unremarkable. No consolidation. Pleural spaces: Unremarkable. No pleural effusion. No pneumothorax. Heart/Mediastinum: Unremarkable. No cardiomegaly. Bones/joints: Unremarkable. XR/XR chest 1V portable [id number] IMPRESSION: No acute findings.
--- NOTE | 2024-10-16 17:54 | ECG_ITS ---
[facility] Test Date: 2024-10-16 Pat Name: Ned Sherwood Department: Room: Gender: Male Cyber Security Engineer: : 1955 Requested By: Lan Guerrero Order Number: [id number] [place] MD: Mariano Barry M.D. Measurements Intervals [place] Rate: 86 P: 66 MS: 170 QRS: 54 QRSD: 94 T: 75 QT: 359 QTc: 432 Interpretive Statements SINUS RHYTHM WITH OCCASIONAL VENTRICULAR PREMATURE COMPLEXES Compared to ECG 09/28/2024 01:10:33 Ventricular premature complex(es) now present Electronically Signed On 10-16-2024 21:15:34 SALES REPRESENTATIVE [employer] by Mariano Barry M.D. [email or web address]
[2024-10-16 18:22] LABS: Basophils % 0.2 %; Eosinophils % 0.3 %; Hematocrit 37.6 % (37-53); Lymphocytes # 0.5 10^3/uL (0.8-4.8); Lymphocytes % 4.3 %; Mean Corpuscular Hemoglobin 33.1 pg (27-33); Mean Corpuscular Volume 100.3 fl (82-101); Mean Platelet Volume 10.4 fL (7.4-10.4); Monocytes # 1.1 10^3/uL (0.2-0.9); Neutrophils # 10.13 10^3/uL (1.8-7.7); Neutrophils % 85.7 %; Nucleated Red Blood Cells % 0 %; Platelet Count 186 10^3/cmm (157-399); Red Blood Count 3.75 10^6/uL (3.85-5.65); White Blood Count 11.82 10^3/uL (3.29-11.43)
[2024-10-16 18:33] LABS: INR 2.13 (0.8-1.2)
[2024-10-16 18:34] LABS: Partial Thromboplastin Time 35.6 SECONDS (23.9-36.7)
[2024-10-16 18:39] LABS: Alanine Aminotransferase 36 U/L (0-41); Albumin Level 4.4 g/dL (3.5-5.2); Alkaline Phosphatase 189 U/L (40-130); Anion Gap 17.3 (5-19); Aspartate Amino Transferase 85 U/L (0-40); Blood Urea Nitrogen 38 mg/dL (8-23); Calcium 9.7 mg/dL (8.5-10.5); Carbon Dioxide 27 mmol/L (22-29); Chloride 89 mmol/L (98-107); Creatinine Clr Calc Pharmacy 48.2381; Globulin 2.9 g/dL (1.3-4.6); Glomerular Filtration Rate 46.5 mL/min (90-130); Glucose 138 mg/dL (65-115); Osmolality Calculated 279 mOsm/kg (285-295); Potassium 4.3 mmol/L (3.5-5.1); Sodium 129 mmol/L (136-145); Total Bilirubin 4.4 mg/dL (0.15-1.2); Total Protein 7.3 g/dL (6.6-8.7)
[2024-10-16 18:40] LABS: Ammonia 77 umol/L (16-60)
--- NOTE | 2024-10-16 19:23 | PC.NURSE ---
[facility]. A nurse will be returning a call
[2024-10-16] MEDS: morphine 10 mg/0.5 mL oral liq UD PO ×2 (19:25→22:50)
--- NOTE | 2024-10-16 20:20 | ED_ITS ---
HPI - Abdominal Pain 2 General: Chief Complaint: Abdominal Pain Stated Complaint: generalized pain Time Seen by Provider: 10/16/24 17:26 History of Present Illness: 68-year-old male patient with a history of semirecently diagnosed cirrhosis. He has been seen here several times for paracentesis, and treatment. He states that he has been at [facility] in [place] for the last couple of weeks, and had multiple paracenteses there. He was told that he was dying there, and they were going to place him on hospice, but the patient left AGAINST MEDICAL ADVICE wanting to go home before he was discharged. He presents with diffuse abdominal pain, aches all over, no fever. He is nauseated at times. His goal is to go home comfortably, on hospice. Related Data Home Medications Medication Instructions Recorded Confirmed ondansetron 4 mg disintegrating 4 mg PO Q8H PRN Nausea And Vomiting 09/11/24 10/01/24 tablet pantoprazole 40 mg tablet,delayed 40 mg PO DAILY 09/11/24 10/01/24 release albuterol sulfate 2.5 mg/3 mL 2.5 mg continuous nebulization PRN 10/01/24 10/01/24 (0.083 %) solution for nebulization PRN Shortness Of Breath Or Wheezing ciprofloxacin HCl 500 mg tablet 500 mg PO BID 10/01/24 10/01/24 lactulose 10 gram/15 mL oral 30 ml PO BID PRN constipation 10/01/24 10/01/24 solution Previous Rx's Medication Instructions Recorded albuterol sulfate 90 mcg/actuation 2 puff inhalation Q4H PRN 02/02/24 aerosol inhaler shortness of breath or wheezing #8.5 grams lisinopril 20 mg tablet 20 mg PO QAM blood pressure #30 02/02/24 tabs tadalafil 5 mg tablet (Cialis) 2.5 mg (1/2 x 5 mg) PO DAILY PRN 06/26/24 sexual activity #30 tabs spironolactone 50 mg tablet 50 mg PO DAILY #30 tabs 10/01/24 amoxicillin 875 mg-potassium 1 tab PO BID #14 tabs 10/16/24 clavulanate 125 mg tablet morphine 20 mg/5 mL (4 mg/mL) oral 10 mg (2.5 mL) PO Q4H PRN pain 10/16/24 solution #100 mL ondansetron 4 mg disintegrating 4 mg PO Q6H PRN nausea and 10/16/24 tablet vomiting #30 tabs Allergies Allergy/AdvReac Type Severity Reaction Status Date / Time aspirin Allergy Intermediate Unknown Verified 10/16/24 16:56 PFSH ED 2 PFSH: Medical History Alcoholic cirrhosis Gynecomastia, male GERD (gastroesophageal reflux disease) Sexual dysfunction Alcohol dependence Psoriasis Smoker unmotivated to quit Hypertension COPD (chronic obstructive pulmonary disease) Surgical History History of repair of laceration Family History Mother Cancer stomach Denies family history of Anesthesia complication Bleeding disorder Social History Smoking and tobacco/nicotine status: former use of tobacco/nicotine Alcohol intake: current Alcohol intake frequency: few times a week Substance/Drug Use: never Lives independently: Yes Marital status: Single Number of children: 3 Number of grandchildren: 3 service: No Current occupational status: retired and disabled Physical Exam 2 Const: GENERAL APPEARANCE: cooperative, ill appearing, frail appearing and appears older than stated age HENMT: COMMON NORMALS: normocephalic, atraumatic and Normal external nose present HEAD & SCALP: normocephalic and atraumatic FACE & SINUS: normal facial exam and face symmetric NOSE: Normal external nose present Eye: COMMON NORMALS: Equal, round and reactive pupils present and EOMs intact bilaterally SCLERA: scleral abnormal Laterality of scleral abnormality: positive bilateral scleral icterus PUPIL: Yes Equal, round and reactive pupils present Neck/C-Spine: GENERAL: Yes trachea midline Chest: CHEST: Yes Symmetrical chest wall rise Resp: COMMON NORMALS: normal respiratory effort, No retractions, No use of accessory muscles and clear to auscultation bilaterally AUSCULTATION: clear to auscultation bilaterally Cardio: COMMON NORMALS: regular rate and regular rhythm RATE: regular rate RHYTHM: regular rhythm GI: INSPECTION: Yes Abdominal wall edema and Yes abdominal distension P ALPATION: Yes Tenderness to palpation present (GI) (Diffusely) Extremity: COMMON NORMALS: no pedal edema Neuro: ANITA COMA SCALE: document GCS findings [place] coma scale eye opening: Spontaneous Anita coma scale verbal response: Orientated [place] coma scale motor response: [place] commands Anita coma scale total score: 15 S ENSORY EXAM: Yes extremities (intact) Psych: COMMON NORMALS: speech normal SPEECH: Yes normal speech Course 2 Vital Signs: Vital signs: Vital Signs Temperature 97.8 F 10/16/24 16:50 Pulse Rate 91 10/16/24 18:02 Respiratory Rate 18 10/16/24 16:50 Blood Pressure 119/78 10/16/24 18:02 Pulse Oximetry 93 10/16/24 18:02 Oxygen Delivery Me thod Room Air 10/16/24 18:02 MDM - Abdominal Pain Medical Decision Making This patient has cirrhosis. He is not on anticoagulation, with an INR of 2. His bilirubin is 4.4. His chest x-ray is nonacute. His white blood cell count is 11.8. He has an ammonia level is 77. His goal is to go home on hospice. Contacted hospice. We are waiting for return call. He is afebrile at this point. We have contacted hospice regarding this patient. Hospice was talked with the family. There is some confusion about placing a peritoneal drainage catheter for the patient's ascites for comfort measures. He would like to have this done as an outpatient. Or asking case management to set this up for the patient. Hospice will remain in contact with the patient, and take over once the drainage catheter is in place. Until that time, he will be given medications for symptomatic control including pain medication, antiemetic, and antibiotic coverage. They can return for problems. Lab Data 10/16/24 18:13 10/16/24 18:13 Labs/Radiology: Radiology Impressions Chest X-Ray 10/16/24 17:28 IMPRESSION: No acute findings. Laboratory Results WBC 11.82 10^3/uL (3.29-11.43) H 10/16/24 18:13 RBC 3.75 10^6/uL (3.85-5.65) L 10/16/24 18:13 Hgb 12.40 g/dL (11.27-16.99) 10/16/24 18:13 Hct 37.6 % (37-53) 10/16/24 18:13 MCV 100.3 fl (82-101) 10/16/24 18:13 MCH 33.1 pg (27-33) H 10/16/24 18:13 MCHC 33.0 g/dL (30-55) 10/16/24 18:13 RDW 14.0 % (12.1-15.1) 10/16/24 18:13 Plt Count 186 10^3/cmm (157-399) 10/16/24 18:13 MPV 10.4 fL (7.4-10.4) 10/16/24 18:13 Neut % (Auto) 85.7 % 10/16/24 18:13 Lymph % (Auto) 4.3 % 10/16/24 18:13 [place] % (Auto) 9.0 % 10/16/24 18:13 Eos % (Auto) 0.3 % 10/16/24 18:13 Baso % (Auto) 0.2 % 10/16/24 18:13 Neut # (Auto) 10.13 10^3/uL (1.8-7.7) H 10/16/24 18:13 Lymph # (Auto) 0.5 10^3/uL (0.8-4.8) L 10/16/24 18:13 [place] # (Auto) 1.1 10^3/uL (0.2-0.9) H 10/16/24 18:13 Eos # (Auto) 0.0 10^3/uL (0.0-0.8) 10/16/24 18:13 Baso # (Auto) 0.0 10^3/uL (0.0-0.1) 10/16/24 18:13 Nucleated RBC % (auto) 0 % 10/16/24 18:13 Nucleated RBCs # 0.0 /100WBC 10/16/24 18:13 PT 24.60 SECONDS (12.1-14.9) H 10/16/24 18:13 INR 2.13 (0.8-1.2) H 10/16/24 18:13 APTT 35.6 SECONDS (23.9-36.7) 10/16/24 18:13 Sodium 129 mmol/L (136-145) L 10/16/24 18:13 Potassium 4.3 mmol/L (3.5-5.1) 10/16/24 18:13 Chloride 89 mmol/L (98-107) L 10/16/24 18:13 Carbon Dioxide 27 mmol/L (22-29) 10/16/24 18:13 Anion Gap 17.3 (5-19) 10/16/24 18:13 BUN 38 mg/dL (8-23) H 10/16/24 18:13 Creatinine 1.5 mg/dL (0.7-1.2) H 10/16/24 18:13 GFR Calculation 46.5 mL/min (90-130) L 10/16/24 18:13 Glucose 138 mg/dL (65-115) H 10/16/24 18:13 Calculated Osmolality 279 mOsm/kg (285-295) L 10/16/24 18:13 Calcium 9.7 mg/dL (8.5-10.5) 10/16/24 18:13 Total Bilirubin 4.4 mg/dL (0.15-1.2) H 10/16/24 18:13 AST 85 U/L (0-40) H 10/16/24 18:13 ALT 36 U/L (0-41) 10/16/24 18:13 Alkaline Phosphatase 189 U/L (40-130) H 10/16/24 18:13 Ammonia 77 umol/L (16-60) H 10/16/24 18:13 Total Protein 7.3 g/dL (6.6-8.7) 10/16/24 18:13 Albumin 4.4 g/dL (3.5-5.2) 10/16/24 18:13 Globulin 2.9 g/dL (1.3-4.6) 10/16/24 18:13 No radiology studies performed this visit Discharge Plan Discharge Patient Disposition: Home Clinical Impression: Abdominal ascites Alcoholic cirrhosis Qualifiers: Ascites presence: with ascites Qualified Code(s): K70.31 - Alcoholic cirrhosis of liver with ascites Condition: Serious Prescriptions: New morphine 20 mg/5 mL (4 mg/mL) solution 10 mg PO Q4H PRN (Reason: pain) Qty: 100 0RF ondansetron 4 mg tablet,disintegrating 4 mg PO Q6H PRN (Reason: nausea and vomiting) Qty: 30 0RF amoxicillin-pot clavulanate 875-125 mg tablet 1 tab PO BID Qty: 14 0RF Discontinued oxycodone 5 mg tablet 5 mg PO BID PRN (Reason: Pain) No Action lisinopril 20 mg tablet 20 mg PO QAM Qty: 30 5RF Rx Instructions: 340 B medications albuterol sulfate 90 mcg/actuation HFA aerosol inhaler 2 puff inhalation Q4H PRN (Reason: shortness of breath or wheezing) Qty: 8.5 3RF Rx Instructions: 340 B medications tadalafil [Cialis] 5 mg tablet 2.5 mg PO DAILY PRN (Reason: sexual activity) Qty: 30 1RF albuterol sulfate 2.5 mg /3 mL (0.083 %) solution for nebulization 2.5 mg continuous nebulization PRN PRN (Reason: Shortness Of Breath Or Wheezing) ciprofloxacin HCl 500 mg tablet 500 mg PO BID lactulose 10 gram/15 mL solution 30 ml PO BID PRN (Reason: constipation ) spironolactone 50 mg tablet 50 mg PO DAILY Qty: 30 0RF ondansetron 4 mg tablet,disintegrating 4 mg PO Q8H PRN (Reason: Nausea And Vomiting) pantoprazole 40 mg tablet,delayed release (DR/EC) 40 mg PO DAILY Discharge Orders: Discharge ED (Routine); Ordered 10/16/24 Ordered By: Bautista Berrios Patient Instructions: Cirrhosis of the Liver (ED), Ascites (ED), Opioid Safety, Pain Management Activity Restrictions/Additional Instructions: Medication as directed. Keep in contact with your hospice nurse. Case management will work with you to set up an outpatient peritoneal drainage catheter placement. Return for problems. Coding Level of Care Code ED Dietitian Teacher for Orlando Corrales
[2024-10-16] MEDS: oxyCODONE-APAP 5-325 mg Tablet 2 TAB PO (22:18)
[2024-10-16] MEDS: amoxicillin-clav 875-125 mg Tablet 1 TAB PO (22:19)
== END 2024-10-16 23:09 | disposition home or self-care (01) ==
PROVIDERS: Family Medicine; Emergency Provider Emergency Medicine
DX: K70.31 Alcoholic cirrhosis of liver with ascites (principal); Z87.891 Personal history of nicotine dependence; J44.9 Chronic obstructive pulmonary disease, unspecified; I10 Essential (primary) hypertension
CPT/HCPCS: 36415; 71045; 80053; 82140; 85025; 85610; 85730; 93005; 99285

== ENCOUNTER 2024-10-18 01:09 | Emergency (ER) | payer MEDICARE, MEDICAID, SELFPAY ==
--- NOTE | 2024-10-18 01:16 | W.ED.ABDPA2 ---
HPI - Abdominal Pain General: Stated Complaint: Abd pain Time Seen by Provider: 10/18/24 01:10 History of Present Illness: 68-year-old man with history of cirrhosis who was now on hospice who presents to the emergency room again today by ambulance with abdominal pain. He says he supposed to be getting medications from hospice tomorrow morning. Just wants something for the pain and nausea. Related Data Home Medications Medication Instructions Recorded Confirmed ondansetron 4 mg disintegrating 4 mg PO Q8H PRN Nausea And Vomiting 09/11/24 10/01/24 tablet pantoprazole 40 mg tablet,delayed 40 mg PO DAILY 09/11/24 10/01/24 release albuterol sulfate 2.5 mg/3 mL 2.5 mg continuous nebulization PRN 10/01/24 10/01/24 (0.083 %) solution for nebulization PRN Shortness Of Breath Or Wheezing ciprofloxacin HCl 500 mg tablet 500 mg PO BID 10/01/24 10/01/24 lactulose 10 gram/15 mL oral 30 ml PO BID PRN constipation 10/01/24 10/01/24 solution Previous Rx's Medication Instructions Recorded albuterol sulfate 90 mcg/actuation 2 puff inhalation Q4H PRN 02/02/24 aerosol inhaler shortness of breath or wheezing #8.5 grams lisinopril 20 mg tablet 20 mg PO QAM blood pressure #30 02/02/24 tabs tadalafil 5 mg tablet (Cialis) 2.5 mg (1/2 x 5 mg) PO DAILY PRN 06/26/24 sexual activity #30 tabs spironolactone 50 mg tablet 50 mg PO DAILY #30 tabs 10/01/24 amoxicillin 875 mg-potassium 1 tab PO BID #14 tabs 10/16/24 clavulanate 125 mg tablet morphine 20 mg/5 mL (4 mg/mL) oral 10 mg (2.5 mL) PO Q4H PRN pain 10/16/24 solution #100 mL ondansetron 4 mg disintegrating 4 mg PO Q6H PRN nausea and 10/16/24 tablet vomiting #30 tabs Allergies Allergy/AdvReac Type Severity Reaction Status Date / Time aspirin Allergy Intermediate Unknown Verified 10/16/24 16:56 Review of Systems Narrative: Constitutional symptoms: Negative except as documented in HPI. Skin symptoms: Negative except as documented in HPI. Eye symptoms: Negative except as documented in HPI. ENMT symptoms: Negative except as documented in HPI. Respiratory symptoms: Negative except as documented in HPI. Cardiovascular symptoms: Negative except as documented in HPI. Gastrointestinal symptoms: Negative except as documented in HPI. Genitourinary symptoms: Negative except as documented in HPI. Musculoskeletal symptoms: Negative except as documented in HPI. Neurologic symptoms: Negative except as documented in HPI. Psychiatric symptoms: Negative except as documented in HPI. Endocrine symptoms: Negative except as documented in HPI. PFSH ED PFSH: Medical History Alcoholic cirrhosis Gynecomastia, male GERD (gastroesophageal reflux disease) Sexual dysfunction Alcohol dependence Psoriasis Smoker unmotivated to quit Hypertension COPD (chronic obstructive pulmonary disease) Surgical History History of repair of laceration Family History Mother Cancer stomach Denies family history of Anesthesia complication Bleeding disorder Social History Smoking and tobacco/nicotine status: former use of tobacco/nicotine Alcohol intake: current Alcohol intake frequency: few times a week Substance/Drug Use: never Lives independently: Yes Marital status: Single Number of children: 3 Number of grandchildren: 3 service: No Current occupational status: retired and disabled Physical Exam Narrative: EXAM NARRATIVE: General: Alert, no acute distress. Skin: Warm, dry. Head: Normocephalic, atraumatic. Neck: Supple, trachea midline. Eye: Extraocular movements are intact. Ears, nose, mouth and throat: mucosa moist. Cardiovascular: Regular, Normal peripheral perfusion. Respiratory: Lungs are clear to auscultation, respirations are non-labored, breath sounds are equal, Symmetrical chest wall expansion. Gastrointestinal: Soft, some generalized abdominal tenderness, mild distention Musculoskeletal: Normal ROM, no deformity. Neurological: Alert and oriented, No focal neurological deficit observed. Psychiatric: Cooperative, appropriate mood & affect. MDM - Abdominal Pain Medical Decision Making Assessment and plan: Hospice patient Cirrhosis Abdominal pain ? IV Dilaudid and Zofran here. Home with an oxycodone and some p.o. Zofran. - Discharged home - Discussed plan with patient. Answered any questions. - Evaluation and treatment of this problem were appropriate in the emergency setting. No radiology studies performed this visit Discharge Plan Discharge Patient Disposition: Home Clinical Impression: Hospice care patient, Cirrhosis, Abdominal pain Condition: Stable Prescriptions: No Action lisinopril 20 mg tablet 20 mg PO QAM Qty: 30 5RF Rx Instructions: 340 B medications albuterol sulfate 90 mcg/actuation HFA aerosol inhaler 2 puff inhalation Q4H PRN (Reason: shortness of breath or wheezing) Qty: 8.5 3RF Rx Instructions: 340 B medications tadalafil [Cialis] 5 mg tablet 2.5 mg PO DAILY PRN (Reason: sexual activity) Qty: 30 1RF albuterol sulfate 2.5 mg /3 mL (0.083 %) solution for nebulization 2.5 mg continuous nebulization PRN PRN (Reason: Shortness Of Breath Or Wheezing) ciprofloxacin HCl 500 mg tablet 500 mg PO BID lactulose 10 gram/15 mL solution 30 ml PO BID PRN (Reason: constipation ) spironolactone 50 mg tablet 50 mg PO DAILY Qty: 30 0RF morphine 20 mg/5 mL (4 mg/mL) solution 10 mg PO Q4H PRN (Reason: pain) Qty: 100 0RF ondansetron 4 mg tablet,disintegrating 4 mg PO Q6H PRN (Reason: nausea and vomiting) Qty: 30 0RF amoxicillin-pot clavulanate 875-125 mg tablet 1 tab PO BID Qty: 14 0RF ondansetron 4 mg tablet,disintegrating 4 mg PO Q8H PRN (Reason: Nausea And Vomiting) pantoprazole 40 mg tablet,delayed release (DR/EC) 40 mg PO DAILY Discharge Orders: Discharge ED (Routine); Ordered 10/18/24 Ordered By: Savanna Mcghee Discharge Diet: Usual diet Discharge Activity: Increase activity as tolerated Patient Instructions: Abdominal Pain (ED), Opioid Safety, Pain Management Activity Restrictions/Additional Instructions: Thank you for choosing [facility] for your healthcare needs today. Please realize this is an emergency room and that we are providing you with a medical screening exam and this may not be complete and all inclusive of all the testing and or work up that you may need to determine your ailment or severity of your illness. You have been screened and evaluated and felt safe for discharge. Health conditions do change or evolve sometimes and as such it is important that you follow up with your Primary Doctor to be re checked, 3-5 days is a general good time frame for follow up. You are always welcome to return to the ED for re assessment if your symptoms are worsening or you have new concerns Coding Level of Care Code ED Automatic Pinsetter Mechanic for Orlando Corrales
[2024-10-18 01:18] VITALS: BP 124/73; PULSE 98; RESP 14; TEMP 36.5; O2SAT 95; BMI 24.3
[2024-10-18] MEDS: ondansetron 2 mg/ML SDV 2 mL 8 MG IVP (01:23)
[2024-10-18 01:26] VITALS: RESP 22; O2SAT 91
[2024-10-18] MEDS: HYDROmorphone 1 mg/mL INJ 1 mL IVP (01:26)
[2024-10-18 01:52] VITALS: BP 124/73; PULSE 95; O2SAT 98
[2024-10-18 02:00] VITALS: BP 122/92; PULSE 100; O2SAT 95
[2024-10-18] MEDS: oxyCODONE 5 mg IR Tab/Cap 10 MG PO (02:11)
[2024-10-18] MEDS: ondansetron 4 MG Tablet 8 MG PO (02:11)
[2024-10-18 02:35] VITALS: BP 107/68; PULSE 102; O2SAT 96
--- NOTE | 2024-10-18 09:21 | DCPLANNER ---
[facility] called this am. not able to take him until he has a drain placed. pt calling them for pain meds
== END 2024-10-18 02:30 | disposition home or self-care (01) ==
PROVIDERS: Emergency Provider Emergency Medicine
DX: K74.60 Unspecified cirrhosis of liver (principal); Z87.891 Personal history of nicotine dependence; J44.9 Chronic obstructive pulmonary disease, unspecified; I10 Essential (primary) hypertension
CPT/HCPCS: 96374; 96375; 99284; J1171; J2405; Q0162

== ENCOUNTER 2024-10-22 09:10 | Emergency (ER) | payer MEDICARE, MEDICAID, SELFPAY ==
[2024-10-22 09:19] VITALS: PULSE 60; RESP 18; TEMP 36.4; O2SAT 96; BMI 24.3
[2024-10-22 09:36] VITALS: BP 139/86; PULSE 95; RESP 16; O2SAT 96
--- NOTE | 2024-10-22 09:40 | W.ED.ABDPA2 ---
HPI - Abdominal Pain General: Chief Complaint: Nausea/Vomiting/Diarrhea Stated Complaint: abd pain Time Seen by Provider: 10/22/24 09:14 Source: patient Mode of arrival: ambulatory Limitations: no limitations History of Present Illness: Patient is a 68-year-old male with known liver cirrhosis and ascites reportedly on hospice here stating he is supposed to have a peritoneal drain placed. Patient states he is retirement on hospice . We did contact [facility] who stated they are tentatively going to accept patient but they cannot until he has a peritoneal drain. He has been seen through our emergency department multiple times for therapeutic paracenteses. His vital signs are stable upon arrival. He does have chronic abdominal pain. He is reportedly on morphine at home for this-prescribed by ED physician a few visits ago. Patient is not running fevers. MD elicited complaint: abdominal pain Pertinent past history: other (liver cirrhosis/ascites) Onset (ago): month(s) Pain Consistency: constant Location: Diffuse Severity: moderate Radiation: none Migration to: no migration Exacerbating factors: nothing Relieving factors: other (paracentesis) Associated Symptoms: Reports nausea; Denies chills, dysuria, fever(s), hematochezia, hematemesis, melena and vomiting Related Data Previous Rx's Medication Instructions Recorded amoxicillin 875 mg-potassium 1 tab PO BID #14 tabs 10/16/24 clavulanate 125 mg tablet morphine 20 mg/5 mL (4 mg/mL) oral 10 mg (2.5 mL) PO Q4H PRN pain 10/16/24 solution #100 mL ondansetron 4 mg disintegrating 4 mg PO Q6H PRN nausea and 10/16/24 tablet vomiting #30 tabs Allergies Allergy/AdvReac Type Severity Reaction Status Date / Time aspirin Allergy Intermediate Unknown Verified 10/22/24 09:23 Review of Systems Const: Denies: fever(s), chills, body aches, fatigue or malaise Eyes: Reports: yellow eyes Card: Denies: chest pain Resp: Denies: dyspnea GI: Reports: abdominal pain and nausea; Denies: vomiting, hematemesis, hematochezia or melena : Denies: flank pain, difficulty urinating, dysuria, urinary frequency, urinary urgency or urinary hesitancy Musc: Denies: neck pain, back pain, extremity pain, joint pain or joint swelling Skin/Breast: Reports: jaundice Neuro: Denies: headache(s), numbness in extremities, weakness in extremities or sensory changes PFSH ED PFSH: Medical History Alcoholic cirrhosis Gynecomastia, male GERD (gastroesophageal reflux disease) Sexual dysfunction Alcohol dependence Psoriasis Smoker unmotivated to quit Hypertension COPD (chronic obstructive pulmonary disease) Surgical History History of repair of laceration Family History Mother Cancer stomach Denies family history of Anesthesia complication Bleeding disorder Social History Smoking and tobacco/nicotine status: former use of tobacco/nicotine Alcohol intake: current Alcohol intake frequency: few times a week Substance/Drug Use: never Lives independently: Yes Marital status: Single Number of children: 3 Number of grandchildren: 3 service: No Current occupational status: retired and disabled Physical Exam Const: COMMON NORMALS: no acute distress, patient oriented x3, no limitations and alert GENERAL APPEARANCE: cooperative and ill appearing ORIENTATION/CONSCIOUSNESS: Yes awake, Yes oriented to person, Yes oriented to place and Yes oriented to time HENMT: COMMON NORMALS: normocephalic and atraumatic HEAD & SCALP: normal to inspection, normocephalic and atraumatic Eye: SCLERA: scleral abnormal Laterality of scleral abnormality: positive bilateral scleral icterus Neck/C-Spine: COMMON NORMALS: no lymphadenopathy GENERAL: Yes normal visual inspection Resp: COMMON NORMALS: normal respiratory effort and clear to auscultation bilaterally AUSCULTATION: clear to auscultation bilaterally Cardio: COMMON NORMALS: regular rate and regular rhythm RATE: regular rate RHYTHM: regular rhythm GI: INSPECTION: Yes abdominal distension and Yes other (ascites) : COMMON NORMALS: Yes no CVA tenderness BLADDER/KIDNEY EXAM: Yes no CVA tenderness Back/Pelvis: COMMON NORMALS: no CVA tenderness Extremity: GENERAL: Yes normal exam except as noted Neuro: COMMON NORMALS: patient oriented x3, moves all extremities, no focal motor deficits and no sensory deficits noted SENSORIUM/ORIENTATION: Yes alert, Yes oriented to person, Yes oriented to place and Yes oriented to time Skin: NARRATIVE SKIN EXAM: jaundice; multiple areas of ecchymosis to forearms Course Vital Signs: Vital signs: Vital Signs Temperature 97.5 F L 10/22/24 09:19 Pulse Rate 95 10/22/24 09:36 Respiratory Rate 16 10/22/24 09:36 Blood Pressure 139/86 10/22/24 09:36 Pulse Oximetry 96 10/22/24 09:36 Oxygen Delivery Me thod Room Air 10/22/24 09:36 MDM - Abdominal Pain Medical Decision Making Patient here requesting a peritoneal drain. Patient has liver cirrhosis and desires hospice care. We did reach out to [address] [place] [address] who stated due to insurance reasons, they cannot accept patient until he has a peritoneal drain (?). I did speak to general surgeon Dr. Cuevas who is on-call. He cannot take patient due to [facility] insurance but spoke to Dr. Garcia who will do procedure tomorrow as an outpatient. OR will call patient or his friend on file with him today to give him appointment time tomorrow. Patient does not desire any further care at this time for this other comorbidities/labs. He does not want admitted to the hospital. He would like drain placed and to be placed on hospice care. Case discussed several times with Dr. Mead who is aware of patient and agrees with care plan. Medical Records I reviewed the patient's medical records. Lab Data I reviewed the patient's lab results. 10/22/24 09:36 10/22/24 09:36 Labs/Radiology: Laboratory Results WBC 9.08 10^3/uL (3.29-11.43) 10/22/24 09:36 RBC 4.02 10^6/uL (3.85-5.65) 10/22/24 09:36 Hgb 13.60 g/dL (11.27-16.99) 10/22/24 09:36 Hct 40.1 % (37-53) 10/22/24 09:36 MCV 99.8 fl (82-101) 10/22/24 09:36 MCH 33.8 pg (27-33) H 10/22/24 09:36 MCHC 33.9 g/dL (30-55) 10/22/24 09:36 RDW 14.3 % (12.1-15.1) 10/22/24 09:36 Plt Count 184 10^3/cmm (157-399) 10/22/24 09:36 MPV 11.2 fL (7.4-10.4) H 10/22/24 09:36 Neut % (Auto) 82.1 % 10/22/24 09:36 Lymph % (Auto) 6.4 % 10/22/24 09:36 [place] % (Auto) 9.6 % 10/22/24 09:36 Eos % (Auto) 1.0 % 10/22/24 09:36 Baso % (Auto) 0.1 % 10/22/24 09:36 Neut # (Auto) 7.46 10^3/uL (1.8-7.7) 10/22/24 09:36 Lymph # (Auto) 0.6 10^3/uL (0.8-4.8) L 10/22/24 09:36 [place] # (Auto) 0.9 10^3/uL (0.2-0.9) 10/22/24 09:36 Eos # (Auto) 0.1 10^3/uL (0.0-0.8) 10/22/24 09:36 Baso # (Auto) 0.0 10^3/uL (0.0-0.1) 10/22/24 09:36 Nucleated RBC % (auto) 0 % 10/22/24 09:36 Nucleated RBCs # 0.0 /100WBC 10/22/24 09:36 PT 16.10 SECONDS (12.1-14.9) H 10/22/24 09:36 INR 1.25 (0.8-1.2) H 10/22/24 09:36 Sodium 126 mmol/L (136-145) L 10/22/24 09:36 Potassium 5.4 mmol/L (3.5-5.1) H 10/22/24 09:36 Chloride 82 mmol/L (98-107) L 10/22/24 09:36 Carbon Dioxide 27 mmol/L (22-29) 10/22/24 09:36 Anion Gap 22.4 (5-19) H 10/22/24 09:36 BUN 75 mg/dL (8-23) H 10/22/24 09:36 Creatinine 2.2 mg/dL (0.7-1.2) H 10/22/24 09:36 GFR Calculation 29.9 mL/min (90-130) L 10/22/24 09:36 Glucose 123 mg/dL (65-115) H 10/22/24 09:36 Calculated Osmolality 286 mOsm/kg (285-295) 10/22/24 09:36 Calcium 10.1 mg/dL (8.5-10.5) 10/22/24 09:36 Total Bilirubin 12.5 mg/dL (0.15-1.2) H* 10/22/24 09:36 AST 250 U/L (0-40) H 10/22/24 09:36 ALT 64 U/L (0-41) H 10/22/24 09:36 Alkaline Phosphatase 185 U/L (40-130) H 10/22/24 09:36 Ammonia 38 umol/L (16-60) 10/22/24 09:36 Total Protein 8.0 g/dL (6.6-8.7) 10/22/24 09:36 Albumin 4.2 g/dL (3.5-5.2) 10/22/24 09:36 Globulin 3.8 g/dL (1.3-4.6) 10/22/24 09:36 No radiology studies performed this visit Discharge Plan Discharge Patient Disposition: Home Clinical Impression: Alcoholic cirrhosis, Ascites due to alcoholic cirrhosis Condition: Stable Prescriptions: No Action morphine 20 mg/5 mL (4 mg/mL) solution 10 mg PO Q4H PRN (Reason: pain) Qty: 100 0RF ondansetron 4 mg tablet,disintegrating 4 mg PO Q6H PRN (Reason: nausea and vomiting) Qty: 30 0RF amoxicillin-pot clavulanate 875-125 mg tablet 1 tab PO BID Qty: 14 0RF Discharge Orders: Discharge ED (Routine); Ordered 10/22/24 Ordered By: Jenniffer Singh Activity Restrictions/Additional Instructions: As we discussed, our GI lab/outpatient surgery center will contact you today or your contact on file to give you information on your surgery appointment time tomorrow for your peritoneal drain placement. This will be done by our general surgeon, Dr. Marie. We have contacted [facility] who will plan on meeting with you to place you under their care going forward. Coding Level of Care Code ED Operating Room Tech for Orlando Corrales
[2024-10-22 09:43] LABS: Basophils % 0.1 %; Eosinophils # 0.1 10^3/uL (0.0-0.8); Hematocrit 40.1 % (37-53); Lymphocytes # 0.6 10^3/uL (0.8-4.8); Lymphocytes % 6.4 %; Mean Corpuscular HGB Conc 33.9 g/dL (30-55); Mean Corpuscular Hemoglobin 33.8 pg (27-33); Mean Corpuscular Volume 99.8 fl (82-101); Mean Platelet Volume 11.2 fL (7.4-10.4); Monocytes # 0.9 10^3/uL (0.2-0.9); Monocytes % 9.6 %; Neutrophils # 7.46 10^3/uL (1.8-7.7); Neutrophils % 82.1 %; Nucleated Red Blood Cells % 0 %; Platelet Count 184 10^3/cmm (157-399); Red Blood Count 4.02 10^6/uL (3.85-5.65); Red Cell Distribution Width 14.3 % (12.1-15.1); White Blood Count 9.08 10^3/uL (3.29-11.43)
--- NOTE | 2024-10-22 09:48 | PC.NURSE ---
spoke with [facility]. hospice nurse stated that they are unable to take him as a pt until the peritoneal drain is placed due to complications with medicare.
[2024-10-22 10:04] LABS: INR 1.25 (0.8-1.2)
[2024-10-22 10:06] LABS: Alanine Aminotransferase 64 U/L (0-41); Albumin Level 4.2 g/dL (3.5-5.2); Alkaline Phosphatase 185 U/L (40-130); Aspartate Amino Transferase 250 U/L (0-40); Blood Urea Nitrogen 75 mg/dL (8-23); Calcium 10.1 mg/dL (8.5-10.5); Carbon Dioxide 27 mmol/L (22-29); Chloride 82 mmol/L (98-107); Creatinine Clr Calc Pharmacy 32.8896; Globulin 3.8 g/dL (1.3-4.6); Glomerular Filtration Rate 29.9 mL/min (90-130); Glucose 123 mg/dL (65-115); Osmolality Calculated 286 mOsm/kg (285-295); Sodium 126 mmol/L (136-145)
[2024-10-22 10:07] LABS: Ammonia 38 umol/L (16-60)
[2024-10-22 10:12] LABS: Anion Gap 22.4 (5-19); Potassium 5.4 mmol/L (3.5-5.1); Total Bilirubin 12.5 mg/dL (0.15-1.2)
--- NOTE | 2024-10-22 10:15 | PC.NURSE ---
pt declined to wear gown at this time
--- NOTE | 2024-10-22 10:25 | PC.PHAR ---
Spoke to Patient's Life Partner and she stated that the last 3 months he hasn't been able to keep medication down , he would throw it up . Life Partner stated he recently was given Amoxicilin -pot clavulanate 875-125 and he took it twice and it hurt his stomach , so he is no longer taking . He is just taking the Morphine and Ondasetron .
--- NOTE | 2024-10-22 10:59 | P.HP_ITS ---
Providers/Chief Complaint 2 Chief Complaint: abd pain History of Present Illness Ned Sherwood is a 68 year old male Medications/Allergies Home Medications Medication Instructions Recorded Confirmed Last Taken Type amoxicillin 875 mg-potassium 1 tab PO BID #14 tabs 10/16/24 10/22/24 Unknown Rx clavulanate 125 mg tablet morphine 20 mg/5 mL (4 mg/mL) oral 10 mg (2.5 mL) PO Q4H PRN pain 10/16/24 10/22/24 10/22/24 02:20 Rx solution #100 mL ondansetron 4 mg disintegrating 4 mg PO Q6H PRN nausea and 10/16/24 10/22/24 10/22/24 Rx tablet vomiting #30 tabs Allergies Allergy/AdvReac Type Severity Reaction Status Date / Time aspirin Allergy Intermediate Unknown Verified 10/22/24 09:23 PFSH Acute 2 PFSH: Medical History Alcoholic cirrhosis Gynecomastia, male GERD (gastroesophageal reflux disease) Sexual dysfunction Alcohol dependence Psoriasis Smoker unmotivated to quit Hypertension COPD (chronic obstructive pulmonary disease) Surgical History History of repair of laceration Family History Mother Cancer stomach Denies family history of Anesthesia complication Bleeding disorder Social History Smoking and tobacco/nicotine status: former use of tobacco/nicotine Alcohol intake: current Alcohol intake frequency: few times a week Substance/Drug Use: never Lives independently: Yes Marital status: Single Number of children: 3 Number of grandchildren: 3 service: No Current occupational status: retired and disabled Vitals/I&O/Wt Last Vital Signs Temp 97.5 F L 10/22/24 09:19 Pulse 95 10/22/24 09:36 Resp 16 10/22/24 09:36 BP 139/86 10/22/24 09:36 Pulse Ox 96 10/22/24 09:36 O2 Del Method Room Air 10/22/24 09:36 Weight last 48 hrs Weight 165 lb Data 10/22/24 09:36 10/22/24 09:36 Coding Level of Care Code Acute Code for Chg Fwd
[2024-10-22 11:54] VITALS: BP 109/80; PULSE 89; RESP 16; O2SAT 95
== END 2024-10-22 11:55 | disposition home or self-care (01) ==
PROVIDERS: Emergency Provider Physician Assistant
DX: K70.31 Alcoholic cirrhosis of liver with ascites (principal); Z87.891 Personal history of nicotine dependence; J44.9 Chronic obstructive pulmonary disease, unspecified; I10 Essential (primary) hypertension
CPT/HCPCS: 80053; 82140; 85025; 85610

== ENCOUNTER 2024-10-22 15:11 | Observation (INO) | payer MEDICARE, MEDICAID, SELFPAY ==
[2024-10-22] VITALS (9 sets, daily range): BP systolic 116–134; BP diastolic 75–81; PULSE 87–94; RESP 14–20; TEMP 36.4–36.5; O2SAT 91–97
[2024-10-22 15:27] LABS: Basophils % 0.1 %; Eosinophils % 0.2 %; Hematocrit 37.3 % (37-53); Lymphocytes # 0.5 10^3/uL (0.8-4.8); Lymphocytes % 4.7 %; Mean Corpuscular HGB Conc 34.6 g/dL (30-55); Mean Corpuscular Hemoglobin 33.8 pg (27-33); Mean Corpuscular Volume 97.6 fl (82-101); Monocytes # 0.8 10^3/uL (0.2-0.9); Monocytes % 8.5 %; Neutrophils # 8.38 10^3/uL (1.8-7.7); Neutrophils % 85.8 %; Nucleated Red Blood Cells % 0 %; Platelet Count 191 10^3/cmm (157-399); Red Blood Count 3.82 10^6/uL (3.85-5.65); Red Cell Distribution Width 14.2 % (12.1-15.1); White Blood Count 9.77 10^3/uL (3.29-11.43)
--- NOTE | 2024-10-22 15:34 | ED_ITS ---
HPI - Nausea/Vomiting/Diarrhea 2 General: Chief complaint: Nausea/Vomiting/Diarrhea Stated complaint: abd pain, vomiting Time Seen by Provider: 10/22/24 15:21 History of Present Illness: 68-year-old [facility] with complaints of abdominal pain nausea and vomiting. Patient has end-stage liver cirrhosis and was seen earlier today. At the time of discharge the plan was for him to have a tunneled peritoneal drain placed tomorrow morning after which he would be admitted to hospice. The patient returns now with hematemesis and coffee-ground emesis. He threw up several times while was evaluating the patient. He did not have any large amounts of bright red blood, coffee-ground emesis and maroonish emesis. Associated nausea: Yes Associated symtoms: Reports nausea; Denies chest pain or dysuria Related Data Home Medications Medication Instructions Recorded Confirmed amoxicillin 875 mg-potassium 1 tab PO BID 10/22/24 10/22/24 clavulanate 125 mg tablet Previous Rx's Medication Instructions Recorded morphine 20 mg/5 mL (4 mg/mL) oral 10 mg (2.5 mL) PO Q4H PRN pain 10/16/24 solution #100 mL ondansetron 4 mg disintegrating 4 mg PO Q6H PRN nausea and 10/16/24 tablet vomiting #30 tabs Allergies Allergy/AdvReac Type Severity Reaction Status Date / Time aspirin Allergy Intermediate Unknown Verified 10/22/24 09:23 Review of Systems 2 Const: Denies: fever(s) or chills Card: Denies: chest pain Resp: Denies: dyspnea GI: Reports: abdominal pain, nausea, vomiting, hematemesis and coffee ground emesis : Denies: dysuria, urinary frequency or urinary urgency Musc: Denies: neck pain or back pain Skin/Breast: Denies: rash PFSH ED 2 PFSH: Medical History Alcoholic cirrhosis Gynecomastia, male GERD (gastroesophageal reflux disease) Sexual dysfunction Alcohol dependence Psoriasis Smoker unmotivated to quit Hypertension COPD (chronic obstructive pulmonary disease) Surgical History History of repair of laceration Family History Mother Cancer stomach Denies family history of Anesthesia complication Bleeding disorder Social History Smoking and tobacco/nicotine status: former use of tobacco/nicotine Alcohol intake: current Alcohol intake frequency: few times a week Substance/Drug Use: never Lives independently: Yes Marital status: Single Number of children: 3 Number of grandchildren: 3 service: No Current occupational status: retired and disabled Physical Exam 2 Const: GENERAL APPEARANCE: cooperative ORIENTATION/CONSCIOUSNESS: Yes awake, Yes oriented to person, Yes oriented to place and Yes oriented to time HENMT: COMMON NORMALS: normocephalic, atraumatic and hearing grossly normal bilaterally HEAD & SCALP: normocephalic and atraumatic Resp: COMMON NORMALS: normal respiratory effort, No retractions, No use of accessory muscles and clear to auscultation bilaterally AUSCULTATION: clear to auscultation bilaterally Cardio: COMMON NORMALS: regular rate, regular rhythm and No murmurs present (Cardio) RATE: regular rate RHYTHM: regular rhythm GI: COMMON NORMALS: No hepatosplenomegaly present AUSCULTATION: Yes normoactive bowel sounds PALPATION: Yes Tenderness to palpation present (GI) (Epigastric), No Guarding due to palpation present (GI) and Yes No hepatosplenomegaly present Extremity: COMMON NORMALS: normal to inspection, capillary refill normal, no clubbing, cyanosis or edema, no calf tenderness and no pedal edema Neuro: SENSORIUM/ORIENTATION: Yes oriented to person, Yes oriented to place and Yes oriented to time Skin: COMMON NORMALS: no rashes or lesions noted GENERAL SKIN EXAM: no rashes or lesions noted Course 2 Vital Signs: Vital signs: Vital Signs Temperature 97.6 F 10/22/24 20:00 Pulse Rate 87 10/22/24 20:18 Respiratory Rate 14 10/22/24 20:25 Blood Pressure 116/76 10/22/24 20:18 Pulse Oximetry 95 10/22/24 20:18 Oxygen Delivery Me thod Room Air 10/22/24 20:00 MDM - Nausea/Vomiting/Diarrhea Medical Decision Making Long discussion with the patient. Ultimately he decided with myself and the nurse present that he wished to receive comfort cares only. He expressed understanding that if he is he admitted here that there are some things that may need to be done to stop the bleeding that we would not have access to. He is more concerned with being on comfort care. Discussed with hospitalist will admit. I also discussed Dr. Marie who is planning on doing the tunneled drain tomorrow. Orders written Medical Records I reviewed the patient's medical records. Lab Data I reviewed the patient's lab results. 10/22/24 14:49 10/22/24 14:49 Laboratory Results WBC 9.77 10^3/uL (3.29-11.43) 10/22/24 14:49 RBC 3.82 10^6/uL (3.85-5.65) L 10/22/24 14:49 Hgb 12.90 g/dL (11.27-16.99) 10/22/24 14:49 Hct 37.3 % (37-53) 10/22/24 14:49 MCV 97.6 fl (82-101) 10/22/24 14:49 MCH 33.8 pg (27-33) H 10/22/24 14:49 MCHC 34.6 g/dL (30-55) 10/22/24 14:49 RDW 14.2 % (12.1-15.1) 10/22/24 14:49 Plt Count 191 10^3/cmm (157-399) 10/22/24 14:49 MPV 11.0 fL (7.4-10.4) H 10/22/24 14:49 Neut % (Auto) 85.8 % 10/22/24 14:49 Lymph % (Auto) 4.7 % 10/22/24 14:49 [place] % (Auto) 8.5 % 10/22/24 14:49 Eos % (Auto) 0.2 % 10/22/24 14:49 Baso % (Auto) 0.1 % 10/22/24 14:49 Neut # (Auto) 8.38 10^3/uL (1.8-7.7) H 10/22/24 14:49 Lymph # (Auto) 0.5 10^3/uL (0.8-4.8) L 10/22/24 14:49 [place] # (Auto) 0.8 10^3/uL (0.2-0.9) 10/22/24 14:49 Eos # (Auto) 0.0 10^3/uL (0.0-0.8) 10/22/24 14:49 Baso # (Auto) 0.0 10^3/uL (0.0-0.1) 10/22/24 14:49 Nucleated RBC % (auto) 0 % 10/22/24 14:49 Nucleated RBCs # 0.0 /100WBC 10/22/24 14:49 PT 16.10 SECONDS (12.1-14.9) H 10/22/24 14:49 INR 1.25 (0.8-1.2) H 10/22/24 14:49 APTT 29.6 SECONDS (23.9-36.7) 10/22/24 14:49 Sodium 125 mmol/L (136-145) L 10/22/24 14:49 Potassium 5.3 mmol/L (3.5-5.1) H 10/22/24 14:49 Chloride 82 mmol/L (98-107) L 10/22/24 14:49 Carbon Dioxide 28 mmol/L (22-29) 10/22/24 14:49 Anion Gap 20.3 (5-19) H 10/22/24 14:49 BUN 76 mg/dL (8-23) H 10/22/24 14:49 Creatinine 2.4 mg/dL (0.7-1.2) H 10/22/24 14:49 GFR Calculation 27.1 mL/min (90-130) L 10/22/24 14:49 Glucose 131 mg/dL (65-115) H 10/22/24 14:49 Calculated Osmolality 284 mOsm/kg (285-295) L 10/22/24 14:49 Lactic Acid 2.2 mmol/L (0.5-2.2) 10/22/24 16:00 Calcium 9.9 mg/dL (8.5-10.5) 10/22/24 14:49 Total Bilirubin 12.2 mg/dL (0.15-1.2) H* 10/22/24 14:49 AST 213 U/L (0-40) H 10/22/24 14:49 ALT 58 U/L (0-41) H 10/22/24 14:49 Alkaline Phosphatase 175 U/L (40-130) H 10/22/24 14:49 Ammonia 59 umol/L (16-60) 10/22/24 16:00 Total Protein 7.5 g/dL (6.6-8.7) 10/22/24 14:49 Albumin 4.1 g/dL (3.5-5.2) 10/22/24 14:49 Globulin 3.4 g/dL (1.3-4.6) 10/22/24 14:49 Procalcitonin 1.16 ng/mL (0-0.5) H 10/22/24 14:49 Blood Type A Positive 10/22/24 16:00 Rho(D) Type Rh positive 10/22/24 16:00 Antibody Screen Negative 10/22/24 16:00 No radiology studies performed this visit Discharge Plan Discharge Patient Disposition: Admitted As Inpatient Admit Provider: Elmer Maradiaga Clinical Impression: Upper GI bleed, Alcoholic cirrhosis, Ascites due to alcoholic cirrhosis Condition: Stable Coding Level of Care Code ED Movie Extra for Orlando Corrales
[2024-10-22 15:39] LABS: INR 1.25 (0.8-1.2); Partial Thromboplastin Time 29.6 SECONDS (23.9-36.7)
[2024-10-22 15:48] LABS: Alanine Aminotransferase 58 U/L (0-41); Albumin Level 4.1 g/dL (3.5-5.2); Alkaline Phosphatase 175 U/L (40-130); Anion Gap 20.3 (5-19); Aspartate Amino Transferase 213 U/L (0-40); Blood Urea Nitrogen 76 mg/dL (8-23); Calcium 9.9 mg/dL (8.5-10.5); Carbon Dioxide 28 mmol/L (22-29); Chloride 82 mmol/L (98-107); Globulin 3.4 g/dL (1.3-4.6); Glomerular Filtration Rate 27.1 mL/min (90-130); Glucose 131 mg/dL (65-115); Osmolality Calculated 284 mOsm/kg (285-295); Potassium 5.3 mmol/L (3.5-5.1); Sodium 125 mmol/L (136-145); Total Protein 7.5 g/dL (6.6-8.7)
[2024-10-22 15:49] LABS: Total Bilirubin 12.2 mg/dL (0.15-1.2)
[2024-10-22] MEDS: ondansetron 2 mg/ML SDV 2 mL 4 MG IVP (16:15)
[2024-10-22] MEDS: morphine 4 mg/mL SDV 1 mL IVP ×3 (16:16→22:25)
[2024-10-22] MEDS: pantoprazole 40 mg SDV 80 MG IVP (16:18)
[2024-10-22 16:27] LABS: Ammonia 59 umol/L (16-60)
--- NOTE | 2024-10-22 17:01 | P.HP_ITS ---
Providers/Chief Complaint 2 Chief Complaint: abd pain, vomiting History of Present Illness Ned Sherwood is a 68 year old male with a past medical history of alcoholic liver cirrhosis, COPD, recurrent abdominal ascites, according to patient, he wants to go home on hospice, however he continues to have abdominal distention, and he wants a peritoneal drain placed to help with his recurrent abdominal distention as he has to recurrently come to the emergency room for recurrent paracentesis. He was here in the emergency room earlier on, and there was plans on setting up peritoneal drain placement as outpatient. He tells me he lives at home he does have a life partner he does have a son, however he came back to the emergency room as he continued to have abdominal distention, abdominal pain feeling nauseous and having hematemesis. Currently Willian sitting up beside the bed, blood pressure is 130/80, pulse is 92, respiratory 16 temperature 97.7, 91% on room air he is alert oriented x 3, following all commands. I had a mya discussion with Willian, I discussed with him his goals of care Ned keeps emphasizing that he just wants to be kept comfortable he does not want to have any significant interventions except above all being kept comfortable. He wants comfort care medications, he wants us to ease his pain easily suffering and allow him to pass away comfortably. He wants to go home on hospice, however he tells me it has been difficult to get everything arranged with his peritoneal drain. Now he was having hematemesis, I discussed with Willian that hematemesis with individuals who have alcoholic liver cirrhosis do carry the possibility of esophageal varices which carry significant morbidity and mortality is a high risk of here in the hospital, and I do not have the capability to take care of an esophageal variceal bleed here. He would not require band ligation and that could not really only be done at the tertiary level center such as in [place] or at [place]. An esophageal variceal band ligation could be even considered in his case as he could be considered prophylactic. However Craig does not want to be transferred, he does not want to have aggressive interventions he tells me he just wants to be kept comfortable he just wants the peritoneal drain placement he just wants to go home. I discussed with Willian that if indeed if he does have an esophageal variceal still bleeding is high risk of morbidity and mortality he has a high risk of dying here in the hospital he tells me he understands as he tells me if it comes to that he just wants to be kept comfortable. I discussed with him what we could do for him tonight he is okay with fluid therapy medications, but above all he just wants to be kept comfortable tonight. We discussed his overall goals of care is DNR/DNI does not want to have aggressive interventions he understands that there is a high risk of him dying here in the hospital tonight, he understands this, he is okay with staying here in the hospital he understands that variceal band ligation could be be considered prophylactic and could help improve his condition, however he declines transfer declines interventions. We discussed risk and benefits of all options he voiced understanding, all questions answered, his goal is to overall stay on comfort care, kept comfortable, have his peritoneal drain in place and if possible get discharged home. He tells me that if anything else happens he just wants to be kept comfortable and to comfortably. -I spoke to patient's life partner Regla John, discussed the case in detail with her, she confirms that that is the plan, I discussed patient's critical status with his hematemesis, she understands this, discussed that if she wants to come see him in the hospital she can, discussed Ned's wish to be kept on comfort care and eventually get discharged home on comfort care, with peritoneal drain placed -I also spoke to patient's son Prabhakar Sherwood, discussed with him the case in detail, confirmed with him the plan of Phong Marinoald wishes, to me tells me that he saw this coming, he understands this, I discussed with to me that there is a high risk of Craig dying here in the hospital, he wants to come and see his father he can, I will do the best I can, overall goals is comfort care, and hopefully we can have his peritoneal drain placed, but he has a significant risk of GI bleed, in which case I do not have the ability to take care of him here at [facility], he declines transfer, and at that point we just keep him comfortable I will try Protonix, Carafate, octreotide, fluid therapy Medications/Allergies Home Medications Medication Instructions Recorded Confirmed Last Taken Type morphine 20 mg/5 mL (4 mg/mL) oral 10 mg (2.5 mL) PO Q4H PRN pain 10/16/24 10/22/24 10/22/24 02:20 Rx solution #100 mL ondansetron 4 mg disintegrating 4 mg PO Q6H PRN nausea and 10/16/24 10/22/24 10/22/24 Rx tablet vomiting #30 tabs amoxicillin 875 mg-potassium 1 tab PO BID 10/22/24 10/22/24 Unknown History clavulanate 125 mg tablet Allergies Allergy/AdvReac Type Severity Reaction Status Date / Time aspirin Allergy Intermediate Unknown Verified 10/22/24 09:23 PFSH Acute 2 PFSH: Medical History Alcoholic cirrhosis Gynecomastia, male GERD (gastroesophageal reflux disease) Sexual dysfunction Alcohol dependence Psoriasis Smoker unmotivated to quit Hypertension COPD (chronic obstructive pulmonary disease) Surgical History History of repair of laceration Family History Mother Cancer stomach Denies family history of Anesthesia complication Bleeding disorder Social History Smoking and tobacco/nicotine status: former use of tobacco/nicotine Alcohol intake: current Alcohol intake frequency: few times a week Substance/Drug Use: never Lives independently: Yes Marital status: Single Number of children: 3 Number of grandchildren: 3 service: No Current occupational status: retired and disabled Vitals/I&O/Wt Last Vital Signs Temp 97.7 F 10/22/24 15:14 Pulse 92 10/22/24 16:18 Resp 16 10/22/24 16:18 BP 130/81 10/22/24 16:18 Pulse Ox 91 10/22/24 16:18 O2 Del Method Room Air 10/22/24 16:18 10/22/24 10/22/24 10/22/24 06:59 14:59 22:59 Intake Total 0 / 0 Balance 0 / 0 Physical Exam 2 Const: COMMON NORMALS: no acute distress and patient oriented x3 OTHER: As a bloodstained short, from his vomit Eye: COMMON NORMALS: Equal, round and reactive pupils present and EOMs intact bilaterally Neck/C-Spine: COMMON NORMALS: no JVD Lymph: LYMPHATIC: no lymphadenopathy noted Resp: COMMON NORMALS: normal respiratory effort, No retractions, No use of accessory muscles and clear to auscultation bilaterally AUSCULTATION: c rackles and wheezes Cardio: COMMON NORMALS: regular rate, regular rhythm, S1 normal heart sound present and S2 normal heart sound present RATE: regular rate RHYTHM: r egular rhythm HEART SOUNDS: S1 normal heart sound present and S2 normal heart sound present GI: OTHER: Abdomen soft, distended, good bowel sounds, no guarding, no rebound, no rigidity, diffuse tenderness Extremity: COMMON NORMALS: no pedal edema Neuro: COMMON NORMALS: patient oriented x3 and moves all extremities Psych: COMMON NORMALS: mental status grossly normal Data 10/22/24 14:49 10/22/24 14:49 A&P Assessment and plan (1) Need for comfort care: (2) Upper GI bleed: (3) Acute liver failure: (4) Cirrhosis: (5) Ascites due to alcoholic cirrhosis: Plan Acute liver failure -Alcoholic liver cirrhosis -Recurrent ascites due to liver failure -Now with upper GI bleed, possible esophageal variceal bleed -Acute renal failure -Hyperkalemia, hyponatremia Plan -Monitor tonight -IV fluids -Octreotide drip, Carafate, Protonix -Comfort care order -Understands morbidity mortality associated with his diagnosis, understands that there is a high likelihood that he will here in the hospital, and he accepts this, overall wants to be kept comfortable, family notified -His overall goals is to have peritoneal drain placed tomorrow and go home on comfort care/hospice -Above all wants to be kept comfortable -Will have to reach after surgery, for peritoneal drain placement possibly tomorrow based on clinical progress for comfort -DNR/DNI, comfort care Attestations 2 Medical Necessity Statement*: Patient requires hospitalization, for comfort care, upper GI bleed, acute liver failure, liver cirrhosis, ascites, outpatient with observation Diagnoses Need for comfort care Upper GI bleed K92.2 Acute liver failure K72.00 Cirrhosis K74.60 Ascites due to alcoholic cirrhosis K70.31
--- NOTE | 2024-10-22 17:29 | PC.NURSE ---
PER DR. VAZQUEZ TO RETIME PROTONIX FOR 0200, DUE TO DOSE ALREADY GIVEN IN ER.
[2024-10-22 17:43] LABS: Lactic Sepsis W/Reflex 2.2 mmol/L (0.5-2.2)
[2024-10-22 17:51] LABS: Procalcitonin 1.16 ng/mL (0-0.5)
[2024-10-22] MEDS: sodium chloride 0.9% 1,000 ML 75 ML IV (18:10)
[2024-10-22] MEDS: octreotide 500 MCG in sodium chloride 0.9% (100 ml) 100 ML 10.1 MCG IV (18:11)
[2024-10-22] MEDS: sucralfate 1 gm/10 mL Oral Liq UDC PO (18:11)
[2024-10-22 19:02] LABS: Reflex Lactate Order REFLEX LACTIC ORDERD
[2024-10-22 20:07] LABS: Lactic Acid level (Lactate) 1.9 mmol/L (0.5-2.2)
[2024-10-23] VITALS (10 sets, daily range): BP systolic 104–133; BP diastolic 66–87; PULSE 84–93; RESP 16–20; TEMP 36.1–37; O2SAT 92–95
--- NOTE | 2024-10-23 01:26 | PC.NURSE ---
pt woke up and found no visitors in his room, pt began crying and stating I don;t want to alone, I am going to alone, I don't want to alone . call placed to family and this nurse able to speak with Neetu and later pt life partner called back and stated she will be back over here to be with him
[2024-10-23] MEDS: pantoprazole 40 mg SDV IVP ×2 (04:02→19:24)
[2024-10-23] MEDS: octreotide 500 MCG in sodium chloride 0.9% (100 ml) 100 ML 10.1 MCG IV (04:02)
[2024-10-23] MEDS: sodium chloride 0.9% 1,000 ML 75 ML IV (06:14)
[2024-10-23] MEDS: morphine 4 mg/mL SDV 1 mL IVP ×5 (08:18→23:14)
--- NOTE | 2024-10-23 12:00 | PM.MISC ---
Miscellaneous Note Note: End-stage liver disease w/ new hematemesis and bleeding esophageal varices and ascites, hyponatremic and hyperkalemic, SCr 2.5, on hospice present for placement of tunneled-laparoscopic peritoneal drain placement to be eligible for admission to hospice facility. Patient is high risk for anesthesia (aspiration risk due to GI bleed and ascites, kidney failure, hypotension, hyperkalemia, and hyponatremia, possible hypertensive response to laryngoscopy which may exacerbate esophageal varices bleed, prolonged duration of anesthetic medications d/t liver and kidney failure) AND patient is high risk in particular for laparoscopic surgery (increased abdominal pressure with CO2 insuflation leading to IVC compression w/ associated decreased venous return and drop in cardiac preload causing hypotension and decreased liver perfusion, increased CO2 load and acidosis from carbon dioxide gas compounding pre-existing hyperkalemia, increased liver congestion, patient has COPD complicating the need for pneumoperitoneum to obtain surgical visualization with its associated cephalad displacement of diaphragm leading to increased peak inspiratory pressures, atlectasis, decreased FRC, V/Q mistmatch, possible requirements for steep trendelenburg or reverse trendelenberg with consequential global hypotension, increased liver venous congestion, or increased pressure in esophageal varices, vagal response to insuflation). Discussed with surgeon about risk and highly recommending less invasive placement of peritoneal drain that does not involve requirement for laparoscopy and its associated hemodynamic deleterious effects or anesthesia as this would be in the best interest of the patient's outcome.
--- NOTE | 2024-10-23 12:13 | SUR.PREOP ---
[id number] Marie and Dr. Mota here with patient and significant other to discuss cancelling pt's surgery due to patient is a high risk for anesthesia and laparoscopic surgery,brought pt back to room,assisted pt to bathroom and notified pt's nurse Joanne Key RN
--- NOTE | 2024-10-23 12:40 | US_ITS ---
WS: [id number] ULTRASOUND ABDOMEN LIMITED CLINICAL INFORMATION: comfort care COMPARISON: None. FINDINGS: Only a very small amount of ascites in the paracolic gutters. Insufficient fluid to perform paracente sis at this time. Prominent bowel is visualized in the abdomen and lower quadrants. US/US abdomen lmt fluid [id number] IMPRESSION: Insufficient fluid for paracentesis. Prominent bowel is visualized
--- NOTE | 2024-10-23 15:37 | P.PN_ITS ---
Subjective 2 Subjective: -- Patient was examined multiple time th roughout the morning into the afternoon -Early in the morning patient was seen, he is currently sitting in the bathroom, he tells me he walked to the bathroom by himself does have a walker at bedside -He was able to get up with the walker, walked back to his bed get back into bed -Currently normotensive, on room air, ur ine output has been 350 overnight, respiratory rate 15, alert oriented x 3, following all commands -He tells me that he continues to have a bdominal pain, he tells me that when are we going to put in my peritoneal drain, as he continues to have abdominal distention, he tells me he hurts all over the pain medication has helped but he continues to have pain, he is hungry, he has been kept n.p.o. over night, he tells me he really wants to go home, -Denies any bloody or black stools overn ight no hematemesis -He wants to go home but continues to ryan ve severe abdominal pain severe pain, he does not know how he can manage at home currently -I again confirmed with patient that he wants to go home on hospice/comfort care -Discussed with him that my discussion w ith general surgery, the concern is that patient is a DNR/DNI, on hospice, that he would be a full code for the procedure, he needs to understand the risks of the procedure, is a high risk procedure, high risk of morbidity or mortality, and he needs to understand this significant risk -Brandon tells me in no uncertain terms hey doc I am dying here in pain am i not, and you guys are not doing anything about my pain, I want this catheter to be placed so I can stay at home and I can have the fluid drained, this is what hospice wants this is what I want -Brandon understands with his liver fail ure, his electrolyte abnormalities that I discussed that he has a significant risk of morbidity and mortality specially as his renal function has declined I think he is developing hepatorenal syndrome, he did have episode of hematemesis last night, although none this morning, there is also concern of bleeding esophageal varices, he is deconditioned, his hyperbilirubinemia his elevated creatinine, -Does his procedure carry significant ri sk, significant risk of suffering -He tells me that he has to keep coming back to the hospital to get his paracentesis, it can be difficult for him to do this on hospice, he is tired of this he just wants to be at home, he wants to be on hospice at home, he does not want to keep coming back to the hospital and he understands the risks -I understand that this is not a perfect situation, the procedure carry significant risk, other options I discussed with recurrent paracentesis, -Ned voiced understanding, all questi ons answered, agreed to proceed -During this conversation his life partn funmilayo Arauz understood, also, patient voiced understanding, all questions answered, agreed to proceed while accepting the risks -- Spoke to anesthesia, anesthesia kurt rn for general anesthesia, given patient's liver failure, laboratory abnormalities -Spoke to general surgery, general surge ry and anesthesia will go and talk to Willian about risk and benefits of procedure -I was told by general surgery that afte r discussion with patient anesthesia and and surgery, decision was made to transfer patient to a tertiary level center, for consideration of esophageal variceal band ligation, IR guided drain placement -I spoke our radiology, I was told that IR guided placement of peritoneal drain is not possible here at [facility], pigtail catheter could be placed, but high risk of movement, high risk of infection and only lasts a few days -I went and spoke to Ned -First thing upon seeing Willian, he is c rying in pain, telling me that his abdomen hurts him he, we have not treated his pain, he tells me he does not want to go to a different hospital and in [place] or in [place] -He does not want to be transferred -He has explicitly said this multiple ti mes to me -He tells me why do not we control his p ain here why cannot we take care of him here -He is very frustrated at me, he is writ keyon in pain, is at bedside, telling me that she cannot take care of him like this at home -He tells me he is hurting all over his abdomen is hurting him, his mouth is dry I have not addressed his abdominal pain complaints, he wants us to try to drain his belly, he wants me to control his pain -He keeps telling me why do we need to s end him to a different hospital, he does not want to anywhere else, he wants to be here with his family, he does not want to be transferred -I let Willian talk, he tells me all he w ants is for me to control his pain, drain his belly, and let him go home and , but he he acknowledges that he is in so much pain he does not feel he can go home, and his life partner cannot take care of him -I discussed with him that certainly thi s is a difficult situation, as asked per our anesthesia he is to have a high risk to place a peritoneal drain here, -Options I discussed was as he is intrac table pain, and his family currently cannot take care of him at home -Discussed admitting him to inpatient [facility] for acute liver failure, cardiorenal syndrome, esophageal varices, abdominal ascites, hyperbilirubinemia, TORI -Discussed inpatient hospice in detail madonna simmons tells me just control my pain doc, get my pain under control, I am hurting all over my belly is hurting, he does not want to be in this much pain anymore, he wants me to let him eat, -I sincerely apologize to him, the goal will be to admit him to inpatient hospice, all his hospice orders were presently on hold I resume them, he was n.p.o. for drain placement, I have changed him to a regular diet -Discussed with him the plan moving forrufino hdz is to control his pain emphasize his comfort, ease his pain easily suffering allow him to be comfortable, he also wants me to try to take the fluid off his abdomen, will try to to perform a paracentesis -I had a detailed discussion with him wi th his life partner at bedside about the risks and benefits of hospice, he voiced understanding, all question answered, agreed to proceed -Will admit him to inpatient hospice for intractable pain -Did discuss that if he is here longer t gutiérrez 7 days, I was honest with him I do not know exactly what to do about the need for peritoneal drain placement, if he does needed in the near future, he understands this, he tells me doc just control my pain Vitals/I&O/Wt Last Vital Signs Temp 97.2 F L 10/23/24 12:17 Pulse 86 10/23/24 12:17 Resp 20 H 10/23/24 12:41 BP 133/66 10/23/24 12:17 Pulse Ox 95 10/23/24 12:17 O2 Del Method Room Air 10/23/24 12:17 10/23/24 10/23/24 10/23/24 06:59 14:59 22:59 Intake Total 1004.485 / 1244.485 200 / 200 Output Total 350 / 350 Balance 654.485 / 894.485 200 / 200 Weight last 48 hrs Weight 65.589 kg Physical Exam 2 Const: ORIENTATION/CONSCIOUSNESS: Yes awake, Yes oriented to person and Yes oriented to place; not oriented to time OTHER: in acute distress,in acute pain Resp: COMMON NORMALS: normal respiratory effort, No retractions, No use of accessory muscles and clear to auscultation bilaterally AUSCULTATION: clear to auscultation bilaterally Cardio: COMMON NORMALS: regular rate, regular rhythm, S1 normal heart sound present and S2 normal heart sound present RATE: regular rate RHYTHM: r egular rhythm HEART SOUNDS: S1 normal heart sound present and S2 normal heart sound present GI: OTHER: abodmen, soft, distended, good bowel sounds, no gaurding, no rebound, no rigidty Extremity: COMMON NORMALS: no calf tenderness Neuro: SENSORIUM/ORIENTATION: Yes oriented to person, Yes oriented to place and No oriented to time Urinary Catheter Management: Gamble: Cath Placed During This Visit: yes Reason for Continuing Indwelling Catheter: Acute Urinary Retention or Obstruction Urinary Catheter Date of Insertion: 10/22/24 Urinary Catheter Time of Insertion: 18:36 Data 10/22/24 14:49 10/22/24 14:49 A&P Assessment and plan (1) Need for comfort care: (2) Upper GI bleed: (3) Acute liver failure: (4) Cirrhosis: (5) Ascites due to alcoholic cirrhosis: (6) Admission for hospice care: Plan Acute liver failure -Alcoholic liver cirrhosis -Recurrent ascites due to liver failure -Now with upper GI bleed, possible esophageal variceal bleed -Acute renal failure -Hyperkalemia, hyponatremia -tori, acute renal failure -intractable pain -hyponatremia -hyperkalemia Plan -Comfort care order -will see if he qualifies for inpatient hospice -DNR/DNI, comfort care Attestations 2 Medical Necessity Statement*: patient requires hospitalization for acute liver failure, comfort care, hospice Diagnoses Need for comfort care Upper GI bleed K92.2 Acute liver failure K72.00 Cirrhosis K74.60 Ascites due to alcoholic cirrhosis K70.31 Admission for hospice care Z51.5
--- NOTE | 2024-10-23 18:13 | PM.HP ---
Providers/Chief Complaint Admitting Physician: Elmer Maradiaga MD Chief Complaint: abd pain, vomiting History of Present Illness 68yo M with hx of alcoholic liver cirrhosis, COPD, recurrent abdominal ascites presented to [facility] ED on 10/22/24 with acute decompensated liver failure. Patient admitted under Dr. Maradiaga. Significant discussion had about possible transfer, variceal rupture and poor candidate for band ligation due to critical status. After full evaluation and attempted treatment, a decision was made by the patient to enter onto hospice care. Patient desired home with hospice; however, due to his uncontrolled pain level, lack of assistance at home (lives alone), unavailability of halfway placement over next 24-48hrs 2/2 New Years, patient qualifies for [facility] hospice services. Patient has had significant pain levels only controlled with IV morphine. Patient was agreeable to inpatient hospice until able to move to a halfway. Current symptoms include intractable pain, hematemesis likely 2/2 variceal bleed, significant abdominal pain and distension, and rapid deterioration over past few days. patients life partner Regla John was also discussed with by hospitalist. she also confirms the plan but is unable to care for him at home. Patietns son Prabhakar Sherwood was also notified of status. Patient will be placed on standard comfort care pack including protonix, carafate, octreotide and IVF therapy Medications/Allergies Home Medications Medication Instructions Recorded Confirmed Last Taken Type morphine 20 mg/5 mL (4 mg/mL) oral 10 mg (2.5 mL) PO Q4H PRN pain 10/16/24 10/22/24 10/22/24 02:20 Rx solution #100 mL ondansetron 4 mg disintegrating 4 mg PO Q6H PRN nausea and 10/16/24 10/22/24 10/22/24 Rx tablet vomiting #30 tabs amoxicillin 875 mg-potassium 1 tab PO BID 10/22/24 10/22/24 Unknown History clavulanate 125 mg tablet Allergies Allergy/AdvReac Type Severity Reaction Status Date / Time aspirin Allergy Intermediate Unknown Verified 10/22/24 09:23 PFSH Acute PFSH: Medical History Alcoholic cirrhosis Gynecomastia, male GERD (gastroesophageal reflux disease) Sexual dysfunction Alcohol dependence Psoriasis Smoker unmotivated to quit Hypertension COPD (chronic obstructive pulmonary disease) Surgical History History of repair of laceration Family History Mother Cancer stomach Denies family history of Anesthesia complication Bleeding disorder Social History Smoking and tobacco/nicotine status: former use of tobacco/nicotine Alcohol intake: current Alcohol intake frequency: few times a week Substance/Drug Use: never Lives independently: Yes Marital status: Single Number of children: 3 Number of grandchildren: 3 service: No Current occupational status: retired and disabled Vitals/I&O/Wt Last Vital Signs Temp 97.2 F L 10/23/24 12:17 Pulse 86 10/23/24 12:17 Resp 18 10/23/24 16:03 BP 133/66 10/23/24 12:17 Pulse Ox 95 10/23/24 12:17 O2 Del Method Room Air 10/23/24 12:17 10/23/24 10/23/24 10/23/24 06:59 14:59 22:59 Intake Total 1004.485 / 1244.485 200 / 200 Output Total 350 / 350 Balance 654.485 / 894.485 200 / 200 Weight last 48 hrs Weight 144 lb 9.6 oz Physical Exam Const: ORIENTATION/CONSCIOUSNESS: Yes awake, Yes oriented to person and Yes oriented to place; not oriented to time OTHER: in acute distress,in acute pain Resp: COMMON NORMALS: normal respiratory effort, No retractions, No use of accessory muscles and clear to auscultation bilaterally AUSCULTATION: clear to auscultation bilaterally Cardio: COMMON NORMALS: regular rate, regular rhythm, S1 normal heart sound present and S2 normal heart sound present RATE: regular rate RHYTHM: regular rhythm HEART SOUNDS: S1 normal heart sound present and S2 normal heart sound present GI: OTHER: abodmen, soft, distended, good bowel sounds, no gaurding, no rebound, no rigidty Extremity: COMMON NORMALS: no calf tenderness Neuro: SENSORIUM/ORIENTATION: Yes oriented to person, Yes oriented to place and No oriented to time Urinary Catheter Management: Gamble: Cath Placed During This Visit: yes Reason for Continuing Indwelling Catheter: Acute Urinary Retention or Obstruction Urinary Catheter Date of Insertion: 10/22/24 Urinary Catheter Time of Insertion: 18:36 Data 10/22/24 14:49 10/22/24 14:49 A&P Assessment and plan (1) Need for comfort care: (2) Upper GI bleed: (3) Acute liver failure: (4) Cirrhosis: (5) Ascites due to alcoholic cirrhosis: (6) Admission for hospice care: (7) Intractable pain: (8) Hospice care patient: Plan Assessment Acute liver failure -Alcoholic liver cirrhosis -Recurrent ascites due to liver failure -Now with upper GI bleed, likely esophageal variceal bleed -Acute renal failure -cardiorenal syndrome -Hyperkalemia, hyponatremia -tori, acute renal failure -intractable pain -hyponatremia -hyperkalemia Plan Admit to [facility] hospice service -comfort care pack -continue protonix, sucralfate, -IV morphine scheduled q 3hrs and PRN -LR 50cc/hr. will lighly hydrate in effort to give some fluids to prevent stacking of morphine. unable to give full amount per body weight 2/2 cardiorenal syndrome and concern for flash pulmonary edema -discussed at length with patient and family -goal is to transfer to halfway in 2 days if patient do not deteriorate prior. Attestations Medical Necessity Statement*: patient will require greater than 2 overnight stays for inpatient hospice care. qualifies for [facility] Coding Level of Care Code 77070 Diagnoses Need for comfort care Upper GI bleed K92.2 Acute liver failure K72.00 Cirrhosis K74.60 Ascites due to alcoholic cirrhosis K70.31 Admission for hospice care Z51.5 Intractable pain R52 Hospice care patient Z51.5
[2024-10-23] MEDS: sucralfate 1 gm Tablet PO (19:24)
[2024-10-23] MEDS: lactated ringers 1,000 ML 50 ML IV (19:25)
[2024-10-24] VITALS (10 sets, daily range): BP systolic 101–126; BP diastolic 60–78; PULSE 73–88; RESP 12–20; TEMP 36.1–36.9; O2SAT 94–98
[2024-10-24] MEDS: morphine 4 mg/mL SDV 1 mL IVP ×5 (01:26→09:45)
[2024-10-24] MEDS: pantoprazole 40 mg SDV IVP (06:09)
--- NOTE | 2024-10-24 07:55 | PC.NURSE ---
when entering room for morning rounds, patient was belligerent with nurse. REporting pain. Nurse administered 2mg of morphine. Patient was then upset because nurse did not push medication fast enough. Nurse educated patient on risk of respiratory depression with opiates, especially when given too fast. Patient said he didn't care and just wants to .
--- NOTE | 2024-10-24 08:21 | P.DS_ITS ---
Discharge Providers Date of Admission: 10/22/24 17:52 Date of Discharge: October 24, 2024 Attending Provider at Admission: Elmer Maradiaga MD Attending Provider at Discharge: Nasir Carcamo MD Diagnoses at Discharge Discharge Diagnosis (1) Need for comfort care: Status: Acute (2) Upper GI bleed: Status: Acute (3) Acute liver failure: Status: Acute (4) Cirrhosis: Status: Acute (5) Ascites due to alcoholic cirrhosis: Status: Acute (6) Admission for hospice care: Status: Acute (7) Intractable pain: Status: Acute (8) Hospice care patient: Status: Acute Reason for Visit Reason for Visit: abd pain, vomiting Hospital Course Hospital Course Ned Sherwood is a 68 year old male with a past medical history of alcoholic liver cirrhosis, COPD, recurrent abdominal ascites who presents to [facility] due to recurrent abdominal pain, abdominal distention,patient was admitted to [facility] for acute decompensated liver failure, hepatorenal syndrome, acute renal failure, hyperbilirubinemia, intractable pain, recurrent ascites. There was initial plans on setting up hospice as outpatient, and peritoneal drain placement. After consultation, patient was deemed a high risk for placing peritoneal drain. Due to intractable pain, hospice team was consulted, patient was admitted to inpatient hospice Physical Exam Const: GENERAL APPEARANCE: ill appearing and frail appearing NUTRITIONAL APPEARANCE: cachectic OTHER: in moderate to severe pain, acute distress due to severe pain Resp: COMMON NORMALS: normal respiratory effort, No retractions and No use of accessory muscles AUSCULTATION: crackles and wheezes Cardio: COMMON NORMALS: regular rate, regular rhythm, S1 normal heart sound present and S2 normal heart sound present RATE: regular rate RHYTHM: regular rhythm HEART SOUNDS: S1 normal heart sound present and S2 normal heart sound present GI: OTHER: Abdomen soft, distended, diminished bowel sounds, no guarding, no rebound, no rigidity Extremity: COMMON NORMALS: no pedal edema Urinary Catheter Management: Gamble: Cath Placed During This Visit: yes Reason for Continuing Indwelling Catheter: Hospice/Comfort/Palliative Care Urinary Catheter Date of Insertion: 10/22/24 Urinary Catheter Time of Insertion: 18:36 Discharge Data Studies Completed and Pending Completed Studies During Hospitalization Category Date Time Status US abdomen lmt fluid 98310 Routine Ultrasound 10/23/24 12:40 Completed Radiology Impressions Abdomen Ultrasound 10/23/24 12:40 IMPRESSION: Insufficient fluid for paracentesis. Prominent bowel is visualized Laboratory Results WBC 9.77 10^3/uL (3.29-11.43) 10/22/24 14:49 RBC 3.82 10^6/uL (3.85-5.65) L 10/22/24 14:49 Hgb 12.90 g/dL (11.27-16.99) 10/22/24 14:49 Hct 37.3 % (37-53) 10/22/24 14:49 MCV 97.6 fl (82-101) 10/22/24 14:49 MCH 33.8 pg (27-33) H 10/22/24 14:49 MCHC 34.6 g/dL (30-55) 10/22/24 14:49 RDW 14.2 % (12.1-15.1) 10/22/24 14:49 Plt Count 191 10^3/cmm (157-399) 10/22/24 14:49 MPV 11.0 fL (7.4-10.4) H 10/22/24 14:49 Neut % (Auto) 85.8 % 10/22/24 14:49 Lymph % (Auto) 4.7 % 10/22/24 14:49 Tillman % (Auto) 8.5 % 10/22/24 14:49 Eos % (Auto) 0.2 % 10/22/24 14:49 Baso % (Auto) 0.1 % 10/22/24 14:49 Neut # (Auto) 8.38 10^3/uL (1.8-7.7) H 10/22/24 14:49 Lymph # (Auto) 0.5 10^3/uL (0.8-4.8) L 10/22/24 14:49 Tillman # (Auto) 0.8 10^3/uL (0.2-0.9) 10/22/24 14:49 Eos # (Auto) 0.0 10^3/uL (0.0-0.8) 10/22/24 14:49 Baso # (Auto) 0.0 10^3/uL (0.0-0.1) 10/22/24 14:49 Nucleated RBC % (auto) 0 % 10/22/24 14:49 Nucleated RBCs # 0.0 /100WBC 10/22/24 14:49 PT 16.10 SECONDS (12.1-14.9) H 10/22/24 14:49 INR 1.25 (0.8-1.2) H 10/22/24 14:49 APTT 29.6 SECONDS (23.9-36.7) 10/22/24 14:49 Sodium 125 mmol/L (136-145) L 10/22/24 14:49 Potassium 5.3 mmol/L (3.5-5.1) H 10/22/24 14:49 Chloride 82 mmol/L (98-107) L 10/22/24 14:49 Carbon Dioxide 28 mmol/L (22-29) 10/22/24 14:49 Anion Gap 20.3 (5-19) H 10/22/24 14:49 BUN 76 mg/dL (8-23) H 10/22/24 14:49 Creatinine 2.4 mg/dL (0.7-1.2) H 10/22/24 14:49 GFR Calculation 27.1 mL/min (90-130) L 10/22/24 14:49 Glucose 131 mg/dL (65-115) H 10/22/24 14:49 Calculated Osmolality 284 mOsm/kg (285-295) L 10/22/24 14:49 Lactic Acid 2.2 mmol/L (0.5-2.2) 10/22/24 16:00 Lactic Acid (Sepsis) 1.9 mmol/L (0.5-2.2) 10/22/24 19:46 Calcium 9.9 mg/dL (8.5-10.5) 10/22/24 14:49 Total Bilirubin 12.2 mg/dL (0.15-1.2) H* 10/22/24 14:49 AST 213 U/L (0-40) H 10/22/24 14:49 ALT 58 U/L (0-41) H 10/22/24 14:49 Alkaline Phosphatase 175 U/L (40-130) H 10/22/24 14:49 Ammonia 59 umol/L (16-60) 10/22/24 16:00 Total Protein 7.5 g/dL (6.6-8.7) 10/22/24 14:49 Albumin 4.1 g/dL (3.5-5.2) 10/22/24 14:49 Globulin 3.4 g/dL (1.3-4.6) 10/22/24 14:49 Procalcitonin 1.16 ng/mL (0-0.5) H 10/22/24 14:49 Blood Type A Positive 10/22/24 16:00 Rho(D) Type Rh positive 10/22/24 16:00 Antibody Screen Negative 10/22/24 16:00 Vitals Last Vital Signs Temp 97.4 F L 10/24/24 04:00 Pulse 86 10/24/24 04:00 Resp 14 10/24/24 07:47 BP 125/78 10/24/24 04:00 Pulse Ox 95 10/24/24 04:00 O2 Del Method Nasal Cannula 10/24/24 04:00 Discharge Plan Discharge Patient Disposition: Hospice - Medical Facility Condition: Stable Prescriptions: No Action morphine 20 mg/5 mL (4 mg/mL) solution 10 mg PO Q4H PRN (Reason: pain) Qty: 100 0RF ondansetron 4 mg tablet,disintegrating 4 mg PO Q6H PRN (Reason: nausea and vomiting) Qty: 30 0RF amoxicillin-pot clavulanate 875-125 mg tablet 1 tab PO BID Patient Instructions: Opioid Safety, Acute Wound Care (DC), Post Anesthesia Care Discharge Attestations Time Spent in Discharge Care*: greater than 30 min Quality Metrics Clinical Quality Measures [ No reported AMI, CVA or VTE this stay] Coding Level of Care Code 05790 Total time (in minutes) for Discharge: 45 Diagnoses Need for comfort care Upper GI bleed K92.2 Acute liver failure K72.00 Cirrhosis K74.60 Ascites due to alcoholic cirrhosis K70.31 Admission for hospice care Z51.5 Intractable pain R52 Hospice care patient Z51.5
--- NOTE | 2024-10-24 08:48 | PC.CHAP ---
Pastoral Care Encounter/Spiritual Assessment Type of Contact [] Declined data security coordinator visit [] Patient/Family/Request visit [] Outpatient visit [] Follow-up visit [] Physician referral [] Code/Alert [] Routine visit [] Staff referral [] Actively dying [x] Patient sleeping [] Family support [] [] Out of room [] Palliative care [] [] Receiving care in room [] Pre-surgical visit [] Trauma [] Long length of stay [] ICU visit [] Other: Relational/Emotional Strength [] Patient feels connected with others/family/visitors/staff [] Distress [] Loneliness/isolation [] Abandonment Spirituality of Patient [] Person of Natasha [] Attends Adventism of their Natasha [] Believes in Prayer [] Reads Bible or Christian materials [] There are Spiritual issues to be addressed Cafeteria Helper Interventions [] Prayer [] Active listening [] Non-anxious presence [] Spiritual/emotional support [] Crisis/trauma care [] Spiritual counseling [] Bereavement support [] Provided bereavement packet [] Provided Bible/devotional materials [] Provided toy/stuffed animal, coloring book to patient or family member [] Provided Communion [] Anointing/[place] [] Salvation [] Completed spiritual assessment [] Other: Impact on Illness or Injury [] Angry [] Fearful [] Anxious [] Often cries [] Exhaustion [] Unable to work [] Unable to attend restoration [] Unable to walk/stand [] Unable to read [] Unable to drive [] Unable to eat/drink [] Unable to sleep [] Unable to be with family [] Patient intubated [] Other: Summary Time spent with patient
--- NOTE | 2024-10-24 09:04 | P.PN_ITS ---
Subjective 2 Subjective: Seen this AM in bed. patient was lethargic; however after sternal rub and a few minutes he became more alert and oriented. Patient states he was in pain throughout the night but did not communicate this with nursing staff for PRN medication. Continues to have moderate to severe abdominal pain responding well to IV morphine. Discussed concern with scheduled morphine due to inability of the liver to function leading to accumulation of medication in the body which would likely lead to early demise. Pt aware that medication can be as often as 3hrs IVP. No family by bedside today. continue GIP inpatient measures with goal of half-way within 24-48hrs. Medications: Reviewed: Yes Vitals/I&O/Wt Last Vital Signs Temp 97 F L 10/24/24 08:00 Pulse 83 10/24/24 08:00 Resp 20 H 10/24/24 08:00 BP 122/73 10/24/24 08:00 Pulse Ox 94 10/24/24 08:00 O2 Del Method Room Air 10/24/24 08:00 10/23/24 10/24/24 10/24/24 22:59 06:59 14:59 Intake Total 953.75 / 1153.75 Output Total 650 / 650 Balance 953.75 / 1153.75 -650 / 503.75 Weight last 48 hrs Weight 149 lb 14.4 oz Weight 144 lb 9.6 oz Physical Exam 2 Narrative: General: AOx 2. cachectic, jaundice, moderate distress. psych: depressed mood. anxious. no SI/HI. Head: atraumatic, normocephalic, no mass/lesions Eyes: conjunctiva clear w/o exudate or hemorrhage. icteric, EOM intact, PERRLA. no signs of nystagmus Nose: nasal mucosa pink, septum midline Oropharynx: poor dentition Neck: FROM Chest: atraumatic, symmetrical CVD: RRR, normal S1 and S2, 3/6 LSB murmur. 1+ pulse at DP's. JVD present, HJR present. no edema in legs. Lungs: bibasilar crackles present. Abdomen: distended tender abdomen. NABS. Skin:? jaundice Urinary Catheter Management: Gamble: Cath Placed During This Visit: yes Reason for Continuing Indwelling Catheter: Hospice/Comfort/Palliative Care Urinary Catheter Date of Insertion: 10/22/24 Urinary Catheter Time of Insertion: 18:36 Data 10/22/24 14:49 10/22/24 14:49 A&P Assessment and plan (1) Need for comfort care: (2) Upper GI bleed: (3) Acute liver failure: (4) Cirrhosis: (5) Ascites due to alcoholic cirrhosis: (6) Admission for hospice care: (7) Intractable pain: (8) Hospice care patient: Plan Assessment Acute liver failure -Alcoholic liver cirrhosis -Recurrent ascites due to liver failure -Now with upper GI bleed, 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 -goal for NH placement within 24-48hrs Attestations 2 Medical Necessity Statement*: Patient will require 2 overnight stays until transfer to half-way on hospice Coding Level of Care Code 33694 Diagnoses Need for comfort care Upper GI bleed K92.2 Acute liver failure K72.00 Cirrhosis K74.60 Ascites due to alcoholic cirrhosis K70.31 Admission for hospice care Z51.5 Intractable pain R52 Hospice care patient Z51.5
--- NOTE | 2024-10-24 14:14 | PC.NURSE ---
NUrse wasted 2 mg morphine x2 with Nurse Breanna. Unable to waste in pyxis due to registration issue.
== END 2024-10-23 18:26 | disposition hospice, inpatient (51) ==
LOC: ER 16:49 → MEDSURG 19:38 → ER IP 10-23 08:31
PROVIDERS: Student in an Organized Health Care Education/Training Program; Admitting Provider Family Medicine; Emergency Provider Family Medicine; Visit Provider Family Medicine
PROC: 0WHG43Z Insertion of Infusion Device into Peritoneal Cavity, Percutaneous Endoscopic Approach (ICD-10-PCS; CPT 49324; principal; 2024-10-23 13:25)
DX: Z51.5 Encounter for palliative care (principal); K92.2 Gastrointestinal hemorrhage, unspecified; K70.31 Alcoholic cirrhosis of liver with ascites; K72.00 Acute and subacute hepatic failure without coma; N17.9 Acute kidney failure, unspecified; I10 Essential (primary) hypertension; J44.9 Chronic obstructive pulmonary disease, unspecified; Z87.891 Personal history of nicotine dependence; Z66 Do not resuscitate
CPT/HCPCS: 36415; 51702; 76705; 80053; 82140; 83605; 84145; 85025; 85610; 85730; 86850; 86900; 99232; 99239; G0378; J1100; J2270; J2354; J2405; J2470; J2704; J3010; J3490; J7030; J7120

== ENCOUNTER 2024-10-23 18:27 | Inpatient (IN) | payer OTHER, MEDICARE, MEDICAID, SELFPAY ==
[2024-10-24 14:01] VITALS: RESP 14
[2024-10-24] MEDS: morphine 4 mg/mL SDV 1 mL IVP ×5 (14:01→23:53)
--- NOTE | 2024-10-24 14:05 | PC.NURSE ---
[facility] issue, had to recreate chart from [id number]...
--- NOTE | 2024-10-24 14:06 | PC.NURSE ---
patient's mood has been labile today. Mostly belligerent and hateful towards nursing staff, but at times apologetic for his behavior and very thankful. Occasionally crying and depressed due to his declining health.
[2024-10-24 15:34] VITALS: RESP 12
[2024-10-24 16:36] VITALS: RESP 14
--- NOTE | 2024-10-24 19:12 | PC.NURSE ---
Shift Summary: uneventful shift. Comfort care orders today. Occasionally required IV morphine for pain. Hospice nurse came to speak to the patient.
[2024-10-24 20:00] VITALS: BP 122/67; PULSE 90; RESP 16; TEMP 36.4; O2SAT 92
[2024-10-24 20:57] VITALS: RESP 16
[2024-10-24] MEDS: sucralfate 1 gm/10 mL Oral Liq UDC PO (20:57)
[2024-10-24 23:53] VITALS: RESP 16
[2024-10-25] VITALS (10 sets, daily range): BP systolic 114–127; BP diastolic 69–78; PULSE 86–95; RESP 14–18; TEMP 36.3–36.6; O2SAT 94–96
[2024-10-25] MEDS: morphine 4 mg/mL SDV 1 mL IVP ×4 (02:39→20:29)
[2024-10-25] MEDS: LORazepam 2 mg/mL INJ 1 mL IVP ×3 (04:34→20:28)
[2024-10-25] MEDS: sucralfate 1 gm/10 mL Oral Liq UDC PO (06:24)
--- NOTE | 2024-10-25 16:25 | P.PN_ITS ---
Subjective Subjective: seen in room. daughter and grandson present requiring more lorazepam. nursing desires q4hrs rather than q8hrs sleeping well. improved pain management on current regiment. will be ready for transfer tomorrow. Medications: Reviewed: Yes Vitals/I&O/Wt Last Vital Signs Temp 97.4 F L 10/25/24 15:51 Pulse 92 10/25/24 15:51 Resp 16 10/25/24 15:51 BP 115/73 10/25/24 15:51 Pulse Ox 96 10/25/24 15:51 O2 Del Method Room Air 10/25/24 15:51 10/25/24 10/25/24 10/25/24 06:59 14:59 22:59 Intake Total 120 / 120 Balance 120 / 120 Weight last 48 hrs Weight 147 lb 11.2 oz Physical Exam Narrative: General: AOx 2. cachectic, jaundice, moderate distress. psych: depressed mood. anxious. no SI/HI. Head: atraumatic, normocephalic, no mass/lesions Eyes: conjunctiva clear w/o exudate or hemorrhage. icteric, EOM intact, PERRLA. no signs of nystagmus CVD: RRR, normal S1 and S2, 3/6 LSB murmur. 1+ pulse at DP's. JVD present, HJR present. no edema in legs. Lungs: bibasilar crackles present. Abdomen: distended tender abdomen. NABS. Skin:? jaundice Urinary Catheter Management: Gamble: Cath Placed During This Visit: yes Reason for Continuing Indwelling Catheter: Hospice/Comfort/Palliative Care Urinary Catheter Date of Insertion: 10/22/24 Urinary Catheter Time of Insertion: 18:36 A&P Assessment and plan (1) Need for comfort care: (2) Upper GI bleed: (3) Acute liver failure: (4) Cirrhosis: (5) Ascites due to alcoholic cirrhosis: (6) Admission for hospice care: (7) Intractable pain: (8) Hospice care patient: Plan Assessment Acute liver failure -Alcoholic liver cirrhosis -Recurrent ascites due to liver failure -Now with upper GI bleed, 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 hospice inpatient service -[facility] hospice -comfort care pack -continue protonix, sucralfate, -IV morphine scheduled q 3hrs PRN and per protocol -LR 50cc/hr. -lorazepam adjusted to q4hrs -pending OR placement at [facility] Medical Necessity Statement*: will require 2 overnight stays. likely to senior living within 24-48hrs Coding Level of Care Code 79703 Diagnoses Need for comfort care Upper GI bleed K92.2 Acute liver failure K72.00 Cirrhosis K74.60 Ascites due to alcoholic cirrhosis K70.31 Admission for hospice care Z51.5 Intractable pain R52 Hospice care patient Z51.5
[2024-10-26] MEDS: LORazepam 2 mg/mL INJ 1 mL IVP ×4 (00:39→16:52)
[2024-10-26] MEDS: morphine 4 mg/mL SDV 1 mL IVP ×4 (00:39→16:51)
[2024-10-26 08:00] VITALS: BP 119/77; PULSE 78; RESP 14; TEMP 36.5; O2SAT 94
[2024-10-26 12:12] VITALS: RESP 14
[2024-10-26 16:51] VITALS: RESP 14
--- NOTE | 2024-10-26 17:02 | P.DS_ITS ---
Discharge Providers Date of Admission: 10/23/24 18:27 Date of Discharge: October 26, 2024 Attending Provider at Admission: Elmer Maradiaga MD Attending Provider at Discharge: Nasir Carcamo MD Diagnoses at Discharge Discharge Diagnosis (1) Need for comfort care: Status: Acute (2) Upper GI bleed: Status: Acute (3) Acute liver failure: Status: Acute (4) Cirrhosis: Status: Inactive (5) Ascites due to alcoholic cirrhosis: Status: Acute (6) Admission for hospice care: Status: Acute (7) Intractable pain: Status: Acute (8) Hospice care patient: Status: Inactive Reason for Visit Reason for Visit: HOSPICE [facility], COMFORT CARE Brief History: 68yo M with hx of alcoholic liver cirrho sis, COPD, recurrent abdominal ascites presented to [facility] ED on 10/22/24 with acute decompensated liver failure. Patient admitted under Dr. Maradiaga. Significant discussion had about possible transfer, variceal rupture and poor candidate for band ligation due to critical status. After full evaluation and attempted treatment, a decision was made by the patient to enter onto hospice care. Patient desired home with hospice; however, due to his uncontrolled pain level, lack of assistance at home (lives alone), unavailability of assisted placement over next 24-48hrs 2/2 New Years, patient qualifies for [facility] hospice services. Patient has had significant pain levels only controlled with IV morphine. Patient was agreeable to inpatient hospice until able to move to a assisted. Current symptoms include intractable pain, hematemesis likely 2/2 variceal bleed, significant abdominal pain and distension, and rapid deterioration over past few days. patients life partner Regla John was also discussed with by hospitalist. she also confirms the plan but is unable to care for him at home. Patietns son Prabhakar Sherwood was also notified of status. Patient will be placed on standard comfort care pack including protonix, carafate, octreotide and IVF therapy Hospital Course Hospital Course we were able to control his level of pain to a point where we could transfer him safely to a assisted for hospice care. Physical Exam Narrative: General: AOx 2. cachectic, jaundice, moderate distress. psych: depressed mood. anxious. no SI/HI. Head: atraumatic, normocephalic, no mass/lesions Eyes: conjunctiva clear w/o exudate or hemorrhage. icteric, EOM intact, PERRLA. no signs of nystagmus CVD: RRR, normal S1 and S2, 3/6 LSB murmur. 1+ pulse at DP's. JVD present, HJR present. no edema in legs. Lungs: bibasilar crackles present. Abdomen: distended tender abdomen. NABS. Skin:? jaundice Urinary Catheter Management: Gamble: Cath Placed During This Visit: yes Reason for Continuing Indwelling Catheter: Hospice/Comfort/Palliative Care Urinary Catheter Date of Insertion: 10/22/24 Urinary Catheter Time of Insertion: 18:36 Discharge Data Vitals Last Vital Signs Temp 97.7 F 10/26/24 08:00 Pulse 78 10/26/24 08:00 Resp 14 10/26/24 16:51 BP 119/77 10/26/24 08:00 Pulse Ox 94 10/26/24 08:00 O2 Del Method Room Air 10/26/24 08:00 Discharge Plan Discharge Patient Disposition: LTCH w Plan Readm Condition: Stable Discharge Orders: Discharge Order (Routine); Ordered 10/26/24 Ordered By: Nasir Carcamo Discharge Diet: Clear Liquid Discharge Activity: Bedrest Patient Instructions: Hospice Care (GEN) Discharge Date/Time: 10/26/24 17:00 Discharge Attestations Time Spent in Discharge Care*: less than 30 min Quality Metrics Clinical Quality Measures [ No reported AMI, CVA or VTE this stay] Coding Level of Care Code 66009 Diagnoses Need for comfort care Upper GI bleed K92.2 Acute liver failure K72.00 Cirrhosis K74.60 Ascites due to alcoholic cirrhosis K70.31 Admission for hospice care Z51.5 Intractable pain R52 Hospice care patient Z51.5
--- NOTE | 2024-10-26 18:45 | PC.NURSE ---
iv I removed iv after giving report [facility]. Patient tolerated it well and intact.
[2024-10-26 20:00] VITALS: BP 123/81; PULSE 89; RESP 13; TEMP 36.5; O2SAT 94
[2024-10-26] MEDS: morphine 10 mg/0.5 mL oral liq UD SUBLINGUAL (20:37)
[2024-10-26 22:34] VITALS: BP 123/81; PULSE 89; RESP 13; TEMP 36.5; O2SAT 94
--- NOTE | 2024-10-26 22:37 | PC.NURSE ---
EMS arrived to the Med-Surg floor at 2230 to picket [employer] the patient and take them to [facility]. All proper documentation was given to EMS to be delivered to the facility upon arrival. Disrcharge assessment was completed and Hospice nurse will be called and notified. Patient left the floor at 2235.
== END 2024-10-26 22:37 | disposition hospice, inpatient (51) | DRG 951 ==
PROVIDERS: Admitting Provider Family Medicine; Visit Provider Family Medicine
DX: Z51.5 Encounter for palliative care (principal); I85.11 Secondary esophageal varices with bleeding; N17.9 Acute kidney failure, unspecified; E87.1 Hypo-osmolality and hyponatremia; R64 Cachexia; Z66 Do not resuscitate; K70.40 Alcoholic hepatic failure without coma; K70.31 Alcoholic cirrhosis of liver with ascites; E87.5 Hyperkalemia; J44.9 Chronic obstructive pulmonary disease, unspecified; K21.9 Gastro-esophageal reflux disease without esophagitis; L40.9 Psoriasis, unspecified; I10 Essential (primary) hypertension; F10.20 Alcohol dependence, uncomplicated; Z68.21 Body mass index [BMI] 21.0-21.9, adult; Z60.2 Problems related to living alone; Z79.891 Long term (current) use of opiate analgesic; Z80.0 Family history of malignant neoplasm of digestive organs; Z87.891 Personal history of nicotine dependence
CPT/HCPCS: 99232; 99238; J2060; J2270